=== PATIENT | female | born 1945 | race Caucasian/White ===

== ENCOUNTER 2020-05-11 10:37 | Outpatient (CLI) | payer MEDICARE, SELFPAY ==
--- NOTE | 2020-05-11 10:46 | MM_ITS ---
WS: [id number] RIGHT DIGITAL MAMMOGRAPHY WITH CAD CLINICAL INFORMATION: HX OF BREAST CA COMPARISON: 019 TECHNIQUE: 4 views of the right breast were obtained. FINDINGS: Scattered fibroglandular densities of the right breast. Punctate calcifications No suspicious focal mass, asymmetry, calcifications, or architectural distortion. No evidence of donna gnancy. MM/[place] [id number] IMPRESSION: BI-RADS: 2-Benign FOLLOW UP: 1 Year Follow-up Recommend return to annual diagnostic mammography.
== END 2020-05-11 10:38 | disposition home or self-care (01) ==
PROVIDERS: PCP Family Medicine; Visit Provider Family Medicine
DX: Z12.31 Encounter for screening mammogram for malignant neoplasm of breast (principal); Z85.3 Personal history of malignant neoplasm of breast
CPT/HCPCS: 77065

== ENCOUNTER → 2021-10-16 09:33 | Outpatient (BNVA) | payer MEDICARE, SELFPAY | PROVIDERS: PCP Family Medicine; Referring Provider Family Medicine; Visit Provider Specialist | DX: M25.561 Pain in right knee (principal); M25.761 Osteophyte, right knee | CPT/HCPCS: 73560; 73565 ==

== ENCOUNTER → 2021-10-30 10:28 | Outpatient (BNVA) | payer MEDICARE, SELFPAY | PROVIDERS: PCP Family Medicine; Referring Provider Family Medicine; Visit Provider Specialist | DX: M19.011 Primary osteoarthritis, right shoulder (principal); M25.511 Pain in right shoulder | CPT/HCPCS: 73030 ==

== ENCOUNTER → 2022-04-13 10:52 | Outpatient (BNVA) | payer MEDICARE, SELFPAY | PROVIDERS: PCP Family Medicine; Visit Provider Family Medicine | DX: M79.10 Myalgia, unspecified site (principal); M25.50 Pain in unspecified joint; M89.8X9 Other specified disorders of bone, unspecified site | CPT/HCPCS: 80053; 85025; 85651; 86140 ==

== ENCOUNTER → 2022-05-24 11:43 | Outpatient (BNVA) | payer MEDICARE, SELFPAY | PROVIDERS: PCP Family Medicine; Visit Provider Specialist | DX: M17.11 Unilateral primary osteoarthritis, right knee (principal); Z71.89 Other specified counseling; M75.41 Impingement syndrome of right shoulder | CPT/HCPCS: 20610; J1100; J2795; J3301 ==

== ENCOUNTER → 2022-06-08 10:16 | Outpatient (BNVA) | payer MEDICARE, SELFPAY | PROVIDERS: PCP Family Medicine; Visit Provider Internal Medicine | DX: I25.10 Atherosclerotic heart disease of native coronary artery without angina pectoris (principal); I10 Essential (primary) hypertension; F17.200 Nicotine dependence, unspecified, uncomplicated | CPT/HCPCS: 99214 ==

== ENCOUNTER → 2022-09-06 11:10 | Outpatient (BNVA) | payer MEDICARE, SELFPAY | PROVIDERS: PCP Family Medicine; Visit Provider Specialist | DX: M17.11 Unilateral primary osteoarthritis, right knee (principal); M75.41 Impingement syndrome of right shoulder | CPT/HCPCS: 20610; J1100; J2795; J3301 ==

== ENCOUNTER → 2023-01-17 10:11 | Outpatient (BNVA) | payer MEDICARE, SELFPAY | PROVIDERS: PCP Family Medicine; Visit Provider Specialist | DX: M75.81 Other shoulder lesions, right shoulder (principal); M75.41 Impingement syndrome of right shoulder; M17.11 Unilateral primary osteoarthritis, right knee; Z71.89 Other specified counseling | CPT/HCPCS: 20610; J1100; J2795; J3301 ==

== ENCOUNTER → 2023-03-08 09:53 | Outpatient (BNVA) | payer MEDICARE, SELFPAY | PROVIDERS: PCP Family Medicine; Visit Provider Internal Medicine | DX: I25.10 Atherosclerotic heart disease of native coronary artery without angina pectoris (principal); I10 Essential (primary) hypertension; Z72.0 Tobacco use | CPT/HCPCS: 99214 ==

== ENCOUNTER 2023-04-09 09:04 | Outpatient (CLI) | payer MEDICARE, SELFPAY ==
--- NOTE | 2023-04-09 09:00 | USCV_ITS ---
Priscilla Taylor Age: 77 Gender: F : 1945 Exam Date: 04/09/2023 09:28 Ordering Phys: Sahil Hung M.D ([email or web address]) Technologist: CT Exam Location: [facility] [place] Indication: murmur BP: 174 / 60 HR: 84 Rhythm: Sinus Technical Quality: Adequate MEASUREMENTS (Male / Female) Normal Values 2D ECHO LV Diastolic Diameter PLAX 3.7 cm 4.2 - 5.9 / 3.9 - 5.3 cm LV Systolic Diameter PLAX 3.2 cm IVS Diastolic Thickness 1.1 cm 0.6 - 1.0 / 0.6 - 0.9 cm IVS Systolic Thickness 1.6 cm LVPW Diastolic Thickness 0.4 cm 0.6 - 1.0 / 0.6 - 0.9 cm LVPW Systolic Thickness 1.0 cm LVOT Diameter 2.1 cm LV Ejection Fraction 2D Teich 11.3 % LV Ejection Fraction MOD 2C 63.5 % LV Ejection Fraction 2C AL 64.3 % LA Diameter 2.4 cm LA Width 1.0 cm Aorta at Sinotubular Diameter 1.9 cm IVC Diameter 2.0 cm M-MODE Aortic Annulus Diameter 3.4 cm LA Ao Ratio MM 0.8 MV E Point Septal Separation 0.8 cm DOPPLER AV Peak Velocity 165.0 cm/s LVOT Peak Velocity 136.0 cm/s AV Area Cont Eq vti 3.1 cm squared AV Area Cont Eq pk 2.9 cm squared MV Area PHT 3.7 cm squared Mitral E to A Ratio 1.2 MV E' Velocity 72.0 cm/s Mitral E to MV E' Ratio 10.6 Mitral E to LV E' Lateral Ratio 13.8 Mitral E to LV E' Septal Ratio 8.7 TR Peak Velocity 232.4 cm/s TR Peak Gradient 21.6 mmHg TR Mean Velocity 199.8 cm/s TR Mean Gradient 18.1 mmHg TR Velocity Time Integral 56.0 cm TV Peak E Velocity 67.0 cm/s Right Atrial Pressure 3.0 mmHg Pulmonary Artery Systolic Pressu 24.6 mmHg PV Peak Velocity 101.0 cm/s FINDINGS Left Ventricle Normal left ventricular size, systolic function and milldy increased wall thickness with no regional wall motion abnormalities. Left ventricular ejection fraction is estimated at 70 %. Normal diastolic function. Right Ventricle Normal right ventricular size and systolic function. Right ventricular systolic pressure 36 mmHg. Right Atrium Normal right atrial size. Left Atrium Mildly increased left atrial size. Mitral Valve Moderate mitral annular calcification. Mildly thickened mitral valve. No mitral valve stenosis. Trace mitral valve regurgitation. Aortic Valve Aortic valve not well visualized. No aortic valve stenosis. No aortic valve regurgitation. Tricuspid Valve Structurally normal tricuspid valve. Trace to mild tricuspid valve regurgitation. Pulmonic Valve Pulmonic valve not well visualized. Pericardium No pericardial effusion. Aorta Normal size aortic root and proximal ascending aorta. IVC Normal IVC dimension with >50% respiratory change of the inferior vena cava. CONCLUSIONS 1. Normal left ventricular size, systolic function with no regional wall motion abnormalities. Left ventricular ejection fraction is estimated at 70 %. Normal diastolic function. 2. No significant change when compared to study dated 08/15/2017. Oriana Gauthier MD (Electronically Signed) Final Date: 10 Apr 2023 08:47 S
== END 2023-04-09 09:05 | disposition home or self-care (01) ==
LOC: RAD 09:07
PROVIDERS: PCP Family Medicine; Visit Provider Internal Medicine
DX: R01.1 Cardiac murmur, unspecified (principal)
CPT/HCPCS: 93306

== ENCOUNTER → 2023-04-23 13:43 | Outpatient (BNVA) | payer MEDICARE, SELFPAY | PROVIDERS: PCP Family Medicine; Visit Provider Family Medicine | DX: I10 Essential (primary) hypertension (principal); Z13.6 Encounter for screening for cardiovascular disorders | CPT/HCPCS: 80053; 80061; 85025 ==

== ENCOUNTER → 2023-04-25 11:23 | Outpatient (BNVA) | payer MEDICARE, SELFPAY | PROVIDERS: PCP Family Medicine; Visit Provider Specialist | DX: M17.11 Unilateral primary osteoarthritis, right knee (principal); I10 Essential (primary) hypertension | CPT/HCPCS: 73560; 73565; 80053; 81001; 85025; 99214 ==

== ENCOUNTER 2023-05-01 15:10 | Outpatient (CLI) | payer MEDICARE, SELFPAY ==
--- NOTE | 2023-05-01 15:30 | CT_ITS ---
WS: [id number] CT RIGHT KNEE, NONCONTRAST TECHNIQUE: Noncontrast CT of the RIGHT knee to include the RIGHT hip and ankle. [facility] CLINICAL INFORMATION: knee pain COMPARISON: None. DLP: 944.[address] scans at [facility] use at least one of these dose optimization techniques: automated e xposure control; mA and/or kV adjustment per patient size (includes targeted exams where dose is matc hed to clinical indication); or iterative reconstruction. FINDINGS: Advanced tricompartmental osteoarthritis RIGHT knee worse in the medial joint compartment with subcho ndral sclerosis. Hypertrophic changes along the joint line. Vascular calcification. Osteopenia. Soft tissue edema. Tiny suprapatellar effusion. Hypertrophic patella. A few sigmoid diverticuli. CT/CT knee RT wo con* [id number] IMPRESSION: Images obtained for preoperative purposes.
== END 2023-05-01 15:11 | disposition home or self-care (01) ==
PROVIDERS: PCP Family Medicine; Visit Provider Specialist
DX: M17.11 Unilateral primary osteoarthritis, right knee (principal); M85.88 Other specified disorders of bone density and structure, other site; R60.9 Edema, unspecified
CPT/HCPCS: 73700

== ENCOUNTER 2023-05-07 12:42 | Observation (INO) | payer MEDICARE, SELFPAY ==
[2023-05-06 11:40] VITALS: BMI 21.1
[2023-05-07] VITALS (16 sets, daily range): BP systolic 93–158; BP diastolic 43–61; PULSE 73–96; RESP 14–27; TEMP 36.3–36.8; O2SAT 90–100
[2023-05-07] MEDS: CELEcoxib 200 mg Capsule 400 MG PO (08:17)
[2023-05-07] MEDS: gabapentin 300 mg Capsule PO (08:17)
[2023-05-07] MEDS: sodium chloride 0.9% 1,000 ML 30 ML IV (08:25)
[2023-05-07] MEDS: acetaminophen 1,000 MG/100 ML PIGGYBACK 400 MG IV ×3 (08:30→23:46)
--- NOTE | 2023-05-07 09:10 | ANES.PREANE2 ---
Pre-Anesthetic Assessment Height/Weight: Height 1.55 m Weight 50.802 kg Temp Pulse Resp BP Pulse Ox O2 Del Method 98.2 F 86 16 158/61 98 Room Air 05/07/23 08:10 05/07/23 08:10 05/07/23 08:10 05/07/23 08:10 05/07/23 08:10 05/07/23 08:10 Operation Date: 05/07/23 09:55 Proposed Procedures p RIGHT TOTAL KNEE ARTHROPLASTY WITH ESTEFANY GUIDANCE 39373, M17.10(Right) - Yandy Child MD Familial anesthetic complications: None Was Beta Elva taken within 24 hours: N/A Was Clonidine taken within 24 hours: N/A Last intake: Intake Last Liquid Date 05/06/23 Last Liquid Time 23:00 Last Solid Date 05/06/23 Last Solid Time 22:30 Social Tobacco and No alcohol Exam alert, oriented x 3, clear to auscultation bilaterally and regular rate & rhythm Airway Mallampati: Class III Dentition: full CV/HEM Arrythmia, Coronary Artery Disease and Hypertension Anesthetic Plan ASA status: 3 Anesthesia: Regional (specify below) Other: spinal + adductor Risk of > 500 ml blood loss (7ml/kg in children): Yes, adequate IV access and fluids planned Medications/Allergies Home Medications Medication Instructions Recorded Confirmed Last Taken Type digoxin 125 mcg (0.125 mg) tablet 125 mcg PO DAILY #90 tabs 06/11/22 05/07/23 05/07/23 Rx verapamil 240 mg 24 hr 240 mg PO DAILY #90 caps 08/08/22 05/07/23 05/07/23 Rx capsule,extended release clopidogrel 75 mg tablet 75 mg PO DAILY #90 tabs 12/04/22 05/07/23 05/01/23 Rx losartan 100 mg tablet 100 mg PO DAILY #90 tabs 12/04/22 05/07/23 05/06/23 Rx atorvastatin 10 mg tablet 10 mg PO DAILY #90 tabs 04/01/23 05/07/23 05/06/23 Rx amlodipine 5 mg tablet 5 mg PO DAILY #90 tabs 04/23/23 05/07/23 05/07/23 Rx Allergies Allergy/AdvReac Type Severity Reaction Status Date / Time No Known Allergies Allergy Verified 05/07/23 08:04 Current Medications Generic Name Dose Route Start Last Admin Trade Name Freq PRN Reason Stop Dose Admin Sodium Chloride 1,000 mls @ 30 mls/hr 05/07/23 08:00 05/07/23 08:25 Sodium Chloride 0.9% IV 05/08/23 07:59 30 mls/hr .Q24H TRUONG Administration PFSH Anesthesia Medical History Breast cancer History of palpitations Surgical History H/O mastectomy Family History Brother CAD (coronary artery disease) Social History Smoking and tobacco status: current every day smoker Alcohol intake: never Substance/Drug Use: never Adopted: No Household members: none Housing: House Marital status: / Highest education level completed: 8th Grade service: No Current occupational status: retired Pets and animals: Yes Current gender identity: Female Data Anesthesia Cardiac Studies: Echocardiogram 04/09/23
--- NOTE | 2023-05-07 09:17 | ANES.PROC ---
Anesthesia Procedures Procedure/Date: 05/07/23 Nerve Block ^: Nerve Block 1: Main Anesthesia: spinal anesthesia block Time Out Performed: Yes Consent: requested by attending/covering physician, from patient, from other, risks and benefits reviewed, patient agrees to proceed and emergency procedure Nerve block location: adductor canal (R) Anesthesia monitors applied: pulse oximetry, EKG, BP cuff and oxygen Nerve block position: supine Anesthetic Used: ropivicaine 0.5% (30 ml) and with decadron (4 mg) Ultrasound used to: recognize landmarks and visualize and ID femerol nerve Nerve Stimulator Used?: No Interscalene/Femoral BLK: 2 stimuplex 22 g needle used for position and inplane approach, 4 stimuplex 21 g needle used for position and inplane approach, visualize local anesthetic spread and no vascular puncture identified Injection: neg aspiration of heme Patient Tolerated Procedure: well and no complications Complications: none
--- NOTE | 2023-05-07 09:53 | P.HPUD_ITS ---
Surgery/Procedure H&P Update DATE OF PROCEDURE: May 07, 2023 DATE H&P PERFORMED: 05/01/23 H&P UPDATE INFORMATION: I have reviewed H&P completed within last 30 days, I have examined patient prior to procedure, No changes to prior documentation and H&P is in [facility] EMR on date indicated PLANNED PROCEDURE: Operation Date: 05/07/23 09:55 Proposed Procedures p RIGHT TOTAL KNEE ARTHROPLASTY WITH ESTEFANY GUIDANCE 48932, M17.10(Right) - Yandy Child MD Related Problem List Diagnoses (1) Primary osteoarthritis of right knee:
[2023-05-07] MEDS: ceFAZolin 2,000 MG in sodium chloride 0.9% (plus) 50 ML 100 MG IV ×2 (10:01→18:29)
--- NOTE | 2023-05-07 10:37 | SUR.OPER ---
called daughter and notified her of surgical start.
[2023-05-07] MEDS: vancomycin 1,000 MG SDV 1000 MG XX (10:41)
[2023-05-07] MEDS: ceFAZolin 1,000 mg SDV 1000 MG IRRIGATION (10:42)
[2023-05-07] MEDS: sodium chloride 0.9% 250 mL Bag 50 ML XX (10:43)
--- NOTE | 2023-05-07 11:28 | SUR.OPER ---
called daughter and notified her of surgical progress.
--- NOTE | 2023-05-07 12:47 | P.OP_ITS ---
Operative Report Date of procedure: May 07, 2023 Pre-op diagnosis: Primary osteoarthritis right knee Post-op diagnosis: Primary osteoarthritis right knee Post-op findings: Severe degenerative osteoarthritic change of the right knee with varus deformity and large osteophytes Procedure done: Right total knee arthroplasty with Marin guidance Implants: The [place] total knee system with a size 2 triathlon beaded cruciate retaining femur right, a triathlon titanium tibial component size 2 beaded, a triathlon X3 tibial bearing CS insert size 2 X 14 mm and a beaded triathlon titanium asymmetric patella size 29 x 9 mm Specimens removed/disposition: Femoral head, disposed of Pathology: none sent Surgeon: Yandy Child [employer] Turb[employer] Controls Engineer: [facility] operating room technicians Anesthesia: General (Per LMA, ASA 3 with supplemental adductor block) Estimated blood loss (mL): 100 IV fluids (mL): 1,200 Urine output (mL): 0 (No Martinez) Complications: None Findings: Severe degenerative osteoarthritis of the right knee with large osteophytes and complete loss of cartilage. Condition: stable Disposition: PACU (Then to floor for postoperative rehabilitation and pain management) Brief History: This is an established 78 year old female patient here today for right total knee arthroplasty with Marin guidance. The patient has had multiple injections to help improve her activities of daily living, but these began to not help her, and she wished to proceed with total knee arthroplasty. Risks and complications of the surgery were discussed with her. Consents were signed preoperatively in the office. Questions were answered at that time. Procedure: The patient was brought to the operating theater, and after undergoing general anesthesia per LMA, ASA 3, as well as an adductor canal block, the right lower extremity was prepped with Dura-Prep and draped in usual fashion following placement of a tourniquet high on the leg. The leg was then draped free.? Tourniquet was not elevated during the case.? A surgical pause was performed, and at the time of the surgical pause, we confirmed the site and side of surgery. Additionally, we confirmed the appropriate and timely administration of preoperative antibiotics, Ancef 2 g and Transexemic acid 1 g.? The availability of equipment was confirmed, and the patient's identity was verbalized as well.? An additional transexemic acid 1 g will be given on the floor as well. Following the surgical pause, an incision was made centering over the patella continuing proximally and distally as necessary to allow access to the knee joint. Dissection continued through skin and soft tissues using a scalpel. Hemostasis was obtained using electrocautery. The skin incision was followed by a median parapatellar arthrotomy. The leg was extended and the patella was able to be displaced laterally without difficulty.? Medial release was initially accomplished to allow placement for the Marin array.? Appropriate arrays and markers were placed in appropriate position for use of the Marin.? Preoperative planning had been accomplished and was discussed in detail with the [facility] artist's representative.? Intraoperative mapping of the femur and tibia was accomplished after the arrays were placed.? Internal markers were also placed.? Once we had accomplished the Marin mapping, we began the appropriate resections for placement of the prosthesis.? The plan was for a cruciate retaining right total knee arthroplasty. Once appropriate mapping had been accomplished retraction was established using manual retraction by surgical technicians and also the Marin leg positioner and retractors.? The knee was evaluated.? There was significant osteoarthritic change with significant osteophyte formation a significant varus deformity.? Appropriate bone resection was accomplished using the Marin.? The femur was sized to a size 2.? Following femoral cuts, attention was directed to the tibia.? Osteophytes were removed prior to this portion of the procedure.? We had performed a medial release at the beginning of the procedure to allow for placement of the array and to allow for better planning with flexion and extension adjustments per Marin programming.? Proximal tibia was evaluated, and it was felt that appropriate size for the tibia was a size 2.? Tray was noted to fit nicely with good coverage.? Rim fit was accomplished with the size 2. A trial reduction was accomplished after osteophytes have been removed as well as the medial and lateral menisci.? We had removed the anterior cruciate ligament at the beginning of the case and preserved the posterior cruciate ligam ent.? Trial reduction was accomplished with a size 2 femoral cruciate retaining component and a size 2 CS tibial bearing insert which after trial was a 14 mm. Alignment was felt to be appropriate as well.? Trial components were removed after the femur had been drilled.? Prior to removal of the tibial tray which had been pinned in position with appropriate rotation as determined by the Marin plan, we broached the tibia.? Subsequently, the 4 drill holes were made for the prosthetic component.? All trial components were removed, and the wound was irrigated.? Plans were made for insertion of the prosthetic components.? Prior to this, the patella was manually prepared.? After resection of the articular surface with the jogging system, it was measured and measured a 29 mm patella.? We resected approximately 9 mm of patella.? Patellar height was restored with the patellar component. Once again, the wound was irrigated.? The Tritanium tibia was impacted into position.? The beaded femur was then impacted into position in a cementless fashion. The CS tibial insert was placed prior to placement of the femoral component. The patella was pressed into position with a patellar clamp.? Exparel was injected about the components deep and superficially.? The knee was then copiously irrigated with betadine and saline and suctioned dry.? Further irrigation was accomplished with saline following the Betadine.? Attention was then directed to closure. Closure was accomplished with 0 Vicryl in the fascial tissues.? This was followed by Surgiflo and vancomycin powder.? Following this, a 2-0 Monocryl was used in the subcutaneous tissues, and the skin was closed with skin samia.? Care was taken to assure an excellent subcutaneous as well as skin closure.? A sterile dressing was then placed consisting of Dermabond Prineo, OpSite, sterile soft roll including over the foot, and an Jadiel wrap. The patient was returned the Recovery Room in a satisfactory condition. X-rays were obtained and reviewed there.? The patient will be discharged to the floor for postoperative rehabilitation and pain management. Related Problem List Diagnoses (1) Primary osteoarthritis of right knee:
--- NOTE | 2023-05-07 12:56 | XR_ITS ---
WS: [id number] Exam: XR knee RT 1-2V [id number] Date/Time of Exam: 05/07/2023 1:03 PM Reason For Exam: Right total knee arthroplasty Comparison 04/25/2023. A right total knee replacement is noted in excellent position. Postoperative changes in the adjacent soft tissues. Anterior surgical skin clips. XR/XR knee RT 1-2V 51969 IMPRESSION: 1. Total knee replacement in excellent position.
--- NOTE | 2023-05-07 13:11 | PC.NURSE ---
Xray @ bedside. Good pedal pulse right foot
--- NOTE | 2023-05-07 14:00 | ANE.PACU2 ---
Inpatient post-anesthesia follow up: Airway intact: Yes Vital signs: Temperature 97.8 F Pulse Rate 94 Respiratory Rate 17 Blood Pressure 106/45 Pulse Oximetry 91 Oxygen Delivery Me thod Room Air Oxygen Flow Rate 8 Fraction of Inspir ed Oxygen Hydration adequate: Yes Nausea and vomiting: No Pain level: 1 Mental status: Baseline
[2023-05-07] MEDS: oxyCODONE 5 mg IR Tab/Cap PO (14:25)
[2023-05-07] MEDS: ondansetron 2 mg/ML SDV 2 mL 4 MG IVP (14:25)
[2023-05-07] MEDS: chlorhexidine gluconate 0.12% UDC 15 mL 30 ML MUCOUS MEM ×2 (16:42→21:27)
[2023-05-07] MEDS: calcium carbonate 500 mg Chew Tablet 1000 MG PO (18:28)
[2023-05-07] MEDS: iron polysaccharide complex 150 mg Capsule PO (18:28)
[2023-05-07] MEDS: sennosides-docusate Tablet 2 TAB PO (18:28)
[2023-05-07] MEDS: mupirocin oint 22 gm 1 APPLIC NASAL (18:28)
[2023-05-08] VITALS (11 sets, daily range): BP systolic 94–118; BP diastolic 47–55; PULSE 71–98; RESP 16–20; TEMP 36.4–36.8; O2SAT 96–99
[2023-05-08] MEDS: ceFAZolin 2,000 MG in sodium chloride 0.9% (plus) 50 ML 100 MG IV ×2 (02:16→09:22)
[2023-05-08 03:47] LABS: Basophils % 0.1 %; Hematocrit 32.3 % (37.0-47.0); Hemoglobin 10.4 g/dL (11.5-15.3); Lymphocytes # 0.9 10^3/uL (0.8-4.8); Mean Corpuscular HGB Conc 32.2 g/dL (30.0-36.0); Mean Corpuscular Hemoglobin 30.5 pg (28.0-34.0); Mean Corpuscular Volume 94.7 fl (81-99); Mean Platelet Volume 11.2 fL (7.4-10.4); Monocytes # 0.7 10^3/uL (0.2-0.9); Monocytes % 5.1 %; Neutrophils # 11.68 10^3/uL (1.8-7.7); Neutrophils % 87.5 %; Nucleated Red Blood Cells % 0 %; Platelet Count 144 10^3/cmm (130-400); Red Blood Count 3.41 10^6/uL (4.1-5.3); Red Cell Distribution Width 12.7 % (12.1-15.1); White Blood Count 13.4 10^3/uL (4.0-10.0)
[2023-05-08 04:05] LABS: Anion Gap 12.3 (5-19); Blood Urea Nitrogen 18 mg/dL (8-23); Calcium 8.8 mg/dL (8.5-10.5); Carbon Dioxide 25 mmol/L (22-29); Chloride 104 mmol/L (98-107); Glucose 132 mg/dL (65-115); Osmolality Calculated 288 mOsm/kg (285-295); Potassium 4.3 mmol/L (3.5-5.1); Sodium 137 mmol/L (136-145)
[2023-05-08] MEDS: acetaminophen 1,000 MG/100 ML PIGGYBACK 400 MG IV (08:48)
[2023-05-08] MEDS: atorvastatin 40 mg Tablet 20 MG PO (08:53)
[2023-05-08] MEDS: aspirin 325 mg EC Tablet PO (08:54)
[2023-05-08] MEDS: multivitamin therapeutic Tablet 1 TAB PO (08:54)
[2023-05-08] MEDS: sennosides-docusate Tablet 2 TAB PO (08:54)
[2023-05-08] MEDS: cholecalciferol (vitamin D3) 1,000 unit Tablet 1000 UNIT PO (08:54)
[2023-05-08] MEDS: calcium carbonate 500 mg Chew Tablet 1000 MG PO (08:54)
[2023-05-08] MEDS: losartan 50 mg Tablet 100 MG PO (08:54)
[2023-05-08] MEDS: iron polysaccharide complex 150 mg Capsule PO (08:55)
[2023-05-08] MEDS: digoxin 125 mcg Tablet PO (08:55)
[2023-05-08] MEDS: amlodipine 5 mg Tablet PO (08:55)
[2023-05-08] MEDS: clopidogrel 75 mg Tablet PO (08:55)
[2023-05-08] MEDS: chlorhexidine gluconate 0.12% UDC 15 mL 30 ML MUCOUS MEM ×2 (08:55→13:18)
[2023-05-08] MEDS: mupirocin oint 22 gm 1 APPLIC NASAL (08:56)
[2023-05-08] MEDS: verapamil ER 240 mg Tablet PO (09:51)
[2023-05-08] MEDS: oxyCODONE 5 mg IR Tab/Cap PO ×2 (10:45→15:00)
--- NOTE | 2023-05-08 14:45 | PM.DCS ---
Discharge Providers Date of Admission: 05/07/23 12:42 Date of Discharge: May 08, 2023 Attending Provider at Admission: Yandy Child MD Attending Provider at Discharge: Yandy Child MD Primary Care Provider: Yehuda Reese DO Diagnoses at Discharge Discharge Diagnosis (1) Primary osteoarthritis of right knee: Status: Acute (2) Status post total right knee replacement not using cement: Status: Acute Permanent problem details: Date of procedure: May 07, 2023 Diagnosis: Primary osteoarthritis right knee Procedure done: Right total knee arthroplasty with Marin guidance Implants: The Ray total knee system with a size 2 triathlon beaded cruciate retaining femur right, a triathlon titanium tibial component size 2 beaded, a triathlon X3 tibial bearing CS insert size 2 X 14 mm and a beaded triathlon titanium asymmetric patella size 29 x 9 mm Reason for Visit Reason for Visit: 21359 M17.10 Brief History: This is an established 78 year old female patient here today for right total knee arthroplasty with Marin guidance.? The patient has had multiple injections to help improve her activities of daily living, but these began to not help her, and she wished to proceed with total knee arthroplasty.? Risks and complications of the surgery were discussed with her.? Consents were signed preoperatively in the office.? Questions were answered at that time. Physical Exam Const: COMMON NORMALS: no acute distress, average body habitus, patient oriented x3 and alert GENERAL APPEARANCE: cooperative and comfortable ORIENTATION/CONSCIOUSNESS: Yes awake HENMT: COMMON NORMALS: normocephalic and atraumatic HEAD & SCALP: normocephalic and atraumatic Eye: GENERAL EYE: appearance normal, both eyes and all related structures Chest: COMMONS NORMALS: normal inspection of the chest Resp: COMMON NORMALS: normal respiratory effort EFFORT & INSPECTION: Yes able to speak in complete sentences and Yes symmetric chest movement Extremity: RIGHT LOWER EXTREMITY: Yes knee joint (Large outer dressing is removed prior to discharge.) Right knee: Yes inspection (Minimal to no swelling or ecchymosis.), Yes palpation (Minimal tenderness.), Yes ROM (Able to straight leg raise.), Yes neurovascular exam (Intact distally.) and Yes other (No evidence of DVT.) Neuro: COMMON NORMALS: patient oriented x3 SENSORIUM/ORIENTATION: Yes alert Psych: COMMON NORMALS: mental status grossly normal APPEARANCE: Yes grossly normal ATTITUDE: Yes calm and Yes engaged ATTENTION/CONCENTRATION: Yes attention grossly intact Skin: COMMON NORMALS: no rashes or lesions noted GENERAL SKIN EXAM: no rashes or lesions noted Discharge Data Studies Completed and Pending Completed Studies During Hospitalization Category Date Time Status XR knee RT 1-2V 94240 Routine Exams 05/07/23 12:56 Completed Radiology Impressions Knee X-Ray 05/07/23 12:56 IMPRESSION: 1. Total knee replacement in excellent position. Laboratory Results WBC 13.4 10^3/uL (4.0-10.0) H 05/08/23 03:29 RBC 3.41 10^6/uL (4.1-5.3) L 05/08/23 03:29 Hgb 10.4 g/dL (11.5-15.3) L 05/08/23 03:29 Hct 32.3 % (37.0-47.0) L 05/08/23 03:29 MCV 94.7 fl (81-99) 05/08/23 03:29 MCH 30.5 pg (28.0-34.0) 05/08/23 03: MCHC 32.2 g/dL (30.0-36.0) 05/08/23 03:29 RDW 12.7 % (12.1-15.1) 05/08/23 03:29 Plt Count 144 10^3/cmm (130-400) 05/08/23 03:29 MPV 11.2 fL (7.4-10.4) H 05/08/23 03:29 Neut % (Auto) 87.5 % 05/08/23 03:29 Lymph % (Auto) 7.0 % 05/08/23 03:29 Garfield % (Auto) 5.1 % 05/08/23 03:29 Eos % (Auto) 0.0 % 05/08/23 03:29 Baso % (Auto) 0.1 % 05/08/23 03:29 Neut # (Auto) 11.68 10^3/uL (1.8-7.7) H 05/08/23 03:29 Lymph # (Auto) 0.9 10^3/uL (0.8-4.8) 05/08/23 03:29 Garfield # (Auto) 0.7 10^3/uL (0.2-0.9) 05/08/23 03:29 Eos # (Auto) 0.0 10^3/uL (0.0-0.8) 05/08/23 03:29 Baso # (Auto) 0.0 10^3/uL (0.0-0.1) 05/08/23 03:29 Nucleated RBC % (auto) 0 % 05/08/23 03:29 Nucleated RBCs # 0.0 /100WBC 05/08/23 03:29 Sodium 137 mmol/L (136-145) 05/08/23 03:29 Potassium 4.3 mmol/L (3.5-5.1) 05/08/23 03:29 Chloride 104 mmol/L (98-107) 05/08/23 03:29 Carbon Dioxide 25 mmol/L (22-29) 05/08/23 03:29 Anion Gap 12.3 (5-19) 05/08/23 03:29 BUN 18 mg/dL (8-23) 05/08/23 03:29 Creatinine 0.8 mg/dL (0.5-0.9) 05/08/23 03:29 GFR Calculation Not Reportable 05/08/23 03:29 Glucose 132 mg/dL (65-115) H 05/08/23 03:29 Calculated Osmolality 288 mOsm/kg (285-295) 05/08/23 03:29 Calcium 8.8 mg/dL (8.5-10.5) 05/08/23 03:29 Vitals Last Vital Signs Temp 98.3 F 05/08/23 12:00 Pulse 98 05/08/23 12:00 Resp 18 05/08/23 12:00 BP 106/47 05/08/23 12:00 Pulse Ox 96 05/08/23 12:00 O2 Del Method Room Air 05/08/23 12:00 O2 Flow Rate 8 05/07/23 13:05 Discharge Plan Discharge Patient Disposition: Home Health Service Condition: Stable Prescriptions: New acetaminophen 500 mg Tablet 1,000 mg PO Q8H 15 Days Qty: 0 0RF aspirin 325 mg Tablet,Delayed Release (Dr/Ec) 325 mg PO DAILY 30 Days Qty: 0 0RF oxycodone 5 mg Tablet 5 mg PO Q4H PRN (Reason: Moderate Pain) 7 Days Qty: 30 0RF Continued digoxin 125 mcg (0.125 mg) tablet 125 mcg PO DAILY Qty: 90 3RF verapamil 240 mg capsule,ext rel. pellets 24 hr 240 mg PO DAILY Qty: 90 3RF losartan 100 mg tablet 100 mg PO DAILY Qty: 90 3RF clopidogrel 75 mg tablet 75 mg PO DAILY Qty: 90 3RF atorvastatin 10 mg tablet 10 mg PO DAILY Qty: 90 3RF amlodipine 5 mg tablet 5 mg PO DAILY Qty: 90 3RF Discharge Orders: Discharge Order (Routine); Ordered 05/08/23 Ordered By: Yandy Child Referrals: [facility] ([facility]) [Outside] Yandy Child MD [Physician] - 05/22/23 9:45 am Discharge Diet: Advance as tolerated and Usual diet Discharge Activity: Resume usual activity, Increase activity as tolerated, Limit activity as instructed, Use walker/crutches as instructed and As per PT/OT instructions Patient Instructions: Aspirin (By mouth), Oxycodone, Slow Release (By mouth), Revision Total Joint Arthroplasty (DC), Opioid Safety Activity Restrictions/Additional Instructions: Ice and elevation to right lower extremity. Range of motion to the knee. Ambulate with physical therapy. Physical therapy will perform weightbearing exercises, strengthening, ambulation, and range of motion. Please leave dressing in place. You may shower but do not soak your leg in water. Discharge Attestations Time Spent in Discharge Care*: greater than 30 min Specific Discharge Activities: educating patient, documenting/other paperwork and evaluating patient/reviewing data Quality Metrics Clinical Quality Measures [ No reported AMI, CVA or VTE this stay] Coding Level of Care Code Acute Code for Chg Fwd Diagnoses Primary osteoarthritis of right knee M17.11 Status post total right knee replacement not using cement Z96.651
[2023-05-08] MEDS: acetaminophen 500 mg Tablet 1000 MG PO (15:55)
== END 2023-05-08 16:16 | disposition home health service (06) ==
LOC: MEDSURG 12:58
PROVIDERS: Admitting Provider Specialist; PCP Family Medicine; Visit Provider Specialist
PROC: 8E0Y0CZ Robotic Assisted Procedure of Lower Extremity, Open Approach (ICD-10-PCS; CPT 27447; principal; 2023-05-07 09:55)
DX: M17.11 Unilateral primary osteoarthritis, right knee (principal); Z79.02 Long term (current) use of antithrombotics/antiplatelets; I25.10 Atherosclerotic heart disease of native coronary artery without angina pectoris; I10 Essential (primary) hypertension; F17.200 Nicotine dependence, unspecified, uncomplicated
CPT/HCPCS: 20985; 27447; 36415; 73560; 80048; 85025; 97110; 97116; 97161; 97165; 97530; C1776; C9290; G0378; J0131; J0690; J1100; J2370; J2405; J2704; J2795; J3010; J3370; J3490; J7030; J7050

== ENCOUNTER → 2023-05-22 09:35 | Outpatient (BNVA) | payer MEDICARE, SELFPAY | PROVIDERS: PCP Family Medicine; Visit Provider Specialist | DX: Z96.651 Presence of right artificial knee joint (principal) | CPT/HCPCS: 73560; 73565; 99024 ==

== ENCOUNTER → 2023-06-11 11:32 | Outpatient (BNVA) | payer MEDICARE, SELFPAY | PROVIDERS: PCP Family Medicine; Visit Provider Nurse Practitioner Family | DX: R53.83 Other fatigue (principal) | CPT/HCPCS: 80053; 82306; 82607; 83036; 84443; 85025 ==

== ENCOUNTER 2023-06-12 06:00 | Outpatient (RCR) | payer MEDICARE, SELFPAY | END 2023-07-11 23:59 | disposition home or self-care (01) | LOC: APT 06:00 | PROVIDERS: PCP Family Medicine; Visit Provider Specialist | DX: Z47.1 Aftercare following joint replacement surgery (principal); Z96.651 Presence of right artificial knee joint | CPT/HCPCS: 97110; 97116; 97162; 97530 ==

== ENCOUNTER → 2023-06-13 08:38 | Outpatient (BNVA) | payer MEDICARE, SELFPAY | PROVIDERS: PCP Family Medicine; Visit Provider Nurse Practitioner Family | DX: D64.9 Anemia, unspecified (principal); R53.83 Other fatigue | CPT/HCPCS: 83540; 85025 ==

== ENCOUNTER → 2023-06-18 08:54 | Outpatient (BNVA) | payer MEDICARE, SELFPAY | PROVIDERS: PCP Family Medicine; Visit Provider Nurse Practitioner Family | DX: D64.9 Anemia, unspecified (principal) | CPT/HCPCS: 82274 ==

== ENCOUNTER → 2023-06-26 10:53 | Outpatient (BNVA) | payer MEDICARE, SELFPAY | PROVIDERS: PCP Family Medicine; Visit Provider Specialist | DX: Z96.651 Presence of right artificial knee joint (principal) | CPT/HCPCS: 73560; 73565; 99024 ==

== ENCOUNTER 2023-07-12 06:00 | Outpatient (RCR) | payer MEDICARE, SELFPAY | END 2023-08-10 23:59 | disposition home or self-care (01) | LOC: APT 06:00 | PROVIDERS: PCP Family Medicine; Visit Provider Specialist | DX: Z47.1 Aftercare following joint replacement surgery (principal); Z96.651 Presence of right artificial knee joint | CPT/HCPCS: 97110; 97112; 97530 ==

== ENCOUNTER → 2023-08-26 10:26 | Outpatient (BNVA) | payer MEDICARE, SELFPAY | PROVIDERS: PCP Family Medicine; Visit Provider Nurse Practitioner | DX: Z96.651 Presence of right artificial knee joint (principal); M17.11 Unilateral primary osteoarthritis, right knee | CPT/HCPCS: 73560; 73565; 99213 ==

== ENCOUNTER 2023-09-02 13:02 | Inpatient (IN) | payer MEDICARE, SELFPAY ==
[2023-09-02] VITALS (86 sets, daily range): BP systolic 95–156; BP diastolic 44–84; PULSE 70–100; RESP 14–32; O2SAT 90–98; BMI 19.8
--- NOTE | 2023-09-02 13:07 | ECG_ITS ---
[facility] Test Date: 2023-09-02 Pat Name: Priscilla Taylor Department: Room: Gender: Female [employer] Inspector: : 1945 Requested By: Keren Cordoba Order Number: [id number] Jose MD: Oriana Gauthier M.D. Measurements Intervals [place] Rate: 94 P: 74 VT: 145 QRS: -7 QRSD: 81 T: 72 QT: 321 QTc: 401 Interpretive Statements SINUS RHYTHM POSSIBLE RIGHT ATRIAL ENLARGEMENT [0.25mV P-WAVE] Compared to ECG 08/15/2017 02:21:29 ST (T wave) deviation no longer present Electronically Signed On 09-02-2023 17:45:11 CDT by Oriana Gauthier M.D. [email or web address]
--- NOTE | 2023-09-02 13:07 | XR_ITS ---
WS: [id number] Exam: XR chest 1V portable [id number] Date/Time of Exam: 09/02/2023 1:16 PM Reason For Exam: cp Comparison 03/03/2019. The lungs are hyperinflated and clear. Cardiomediastinal silhouette is unremarkable. Status post LEFT mastectomy with surgical clips in the LEFT axilla. No pleural effusion. Hilar and mediastinal calcif ied lymph nodes. Regional bony elements are intact. IMPRESSION: 1. Pulmonary hyperinflation which may indicate obstructive lung disease. No acute process noted and n o change.
--- NOTE | 2023-09-02 13:12 | W.ED.CHESTPA ---
HPI - Chest Pain General: Chief Complaint: Arrhythmia/Palpitations Stated Complaint: tachy,chest pain Time Seen by Provider: 09/02/23 13:04 Source: patient and EMS Mode of arrival: EMS Limitations: no limitations History of Present Illness: 78-year-old female has a history of A-fib states that 10 this morning she felt like her heart was racing was having palpitations and it was causing her some chest discomfort. She states that her heart rate is now normal and she is feels much better all of her symptoms have resolved. She denies any cough or fever. Associated symptoms: Reports palpitations; Deny abdominal pain, dyspnea, fever(s), nausea or vomiting Review of Systems Const: Denies: fever(s), chills, body aches or change in appetite Eyes: Denies: blurry vision or eye discomfort ENMT: Denies: throat pain or dental pain Card: Reports: chest pain and palpitations Resp: Denies: dyspnea GI: Denies: abdominal pain, nausea, vomiting or diarrhea : Denies: dysuria Musc: Denies: neck pain or back pain Skin/Breast: Denies: rash Neuro: Denies: headache(s) PFSH ED PFSH: Medical History Breast cancer History of palpitations Surgical History H/O mastectomy Family History Brother CAD (coronary artery disease) Social History Smoking and tobacco/nicotine status: current every day tobacco/nicotine user Alcohol intake: never Substance/Drug Use: never Adopted: No Household members: none Housing: House Marital status: / Highest education level completed: 8th Grade service: No Current occupational status: retired Pets and animals: Yes Current gender identity: Female Physical Exam Const: COMMON NORMALS: no acute distress, patient oriented x3 and healthy appearing HENMT: COMMON NORMALS: normocephalic and atraumatic HEAD & SCALP: normocephalic and atraumatic Eye: COMMON NORMALS: Equal, round and reactive pupils present and EOMs intact bilaterally PUPIL: Yes Equal, round and reactive pupils present Neck/C-Spine: COMMON NORMALS: full ROM and supple Chest: COMMONS NORMALS: normal inspection of the chest and normal palpation of entire chest wall Resp: COMMON NORMALS: normal respiratory effort, No retractions, No use of accessory muscles and clear to auscultation bilaterally AUSCULTATION: clear to auscultation bilaterally Cardio: COMMON NORMALS: regular rate, regular rhythm and No murmurs present (Cardio) RATE: regular rate RHYTHM: regular rhythm GI: COMMON NORMALS: Normal to inspection, nondistended, normoactive bowel sounds present, Soft to palpation, non-tender and no masses PALPATION: Yes Soft to palpation Extremity: COMMON NORMALS: normal to inspection and full ROM Neuro: COMMON NORMALS: patient oriented x3, moves all extremities and no focal motor deficits Psych: COMMON NORMALS: mental status grossly normal, Normal thought process present and cooperative THOUGHT PROCESS: Normal thought process present Skin: COMMON NORMALS: no rashes or lesions noted and no wounds GENERAL SKIN EXAM: no rashes or lesions noted Course Vital Signs: Vital signs: Vital Signs Pulse Rate 82 09/02/23 14:43 Respiratory Rate 21 H 09/02/23 14:43 Blood Pressure 107/84 09/02/23 14:43 Pulse Oximetry 95 09/02/23 14:43 Oxygen Delivery Me thod Room Air 09/02/23 14:43 MDM - Chest Pain Medical Decision Making Patient presents here with chest pain she does have an elevated initial troponin along with 2-hour troponin consistent with an NSTEMI EKG here shows no acute findings she has been chest pain-free here we will give her Lovenox I spoke to hospitalist along with 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 Medical Records I reviewed the patient's medical records. Lab Data I reviewed the patient's lab results. 09/02/23 13:17 09/02/23 13:17 Laboratory Results WBC 9.35 10^3/uL (3.29-11.43) 09/02/23 13:17 RBC 4.46 10^6/uL (3.85-5.65) 09/02/23 13:17 Hgb 13.60 g/dL (11.27-16.99) 09/02/23 13:17 Hct 41.1 % (36-47) 09/02/23 13:17 MCV 92.2 fl (85-98) 09/02/23 13:17 MCH 30.5 pg (27-33) 09/02/23 13:17 MCHC 33.1 g/dL (30-55) 09/02/23 13:17 RDW 16.8 % (12.1-15.1) H 09/02/23 13:17 Plt Count 194 10^3/cmm (157-399) 09/02/23 13:17 MPV 10.5 fL (7.4-10.4) H 09/02/23 13:17 Neut % (Auto) 80.0 % 09/02/23 13:17 Lymph % (Auto) 12.2 % 09/02/23 13:17 [place] % (Auto) 6.3 % 09/02/23 13:17 Eos % (Auto) 0.4 % 09/02/23 13:17 Baso % (Auto) 0.7 % 09/02/23 13:17 Neut # (Auto) 7.47 10^3/uL (1.8-7.7) 09/02/23 13:17 Lymph # (Auto) 1.1 10^3/uL (0.8-4.8) 09/02/23 13:17 [place] # (Auto) 0.6 10^3/uL (0.2-0.9) 09/02/23 13:17 Eos # (Auto) 0.0 10^3/uL (0.0-0.8) 09/02/23 13:17 Baso # (Auto) 0.1 10^3/uL (0.0-0.1) 09/02/23 13:17 Nucleated RBC % (auto) 0 % 09/02/23 13:17 Nucleated RBCs # 0.0 /100WBC 09/02/23 13:17 Sodium 140 mmol/L (136-145) 09/02/23 13:17 Potassium 4.2 mmol/L (3.5-5.1) 09/02/23 13:17 Chloride 104 mmol/L (98-107) 09/02/23 13:17 Carbon Dioxide 29 mmol/L (22-29) 09/02/23 13:17 Anion Gap 11.2 (5-19) 09/02/23 13:17 BUN 17 mg/dL (8-23) 09/02/23 13:17 Creatinine 0.7 mg/dL (0.5-0.9) 09/02/23 13:17 GFR Calculation Not Reportable 09/02/23 13:17 Glucose 96 mg/dL (65-115) 09/02/23 13:17 Calculated Osmolality 291 mOsm/kg (285-295) 09/02/23 13:17 Calcium 10.8 mg/dL (8.5-10.5) H 09/02/23 13:17 Total Bilirubin 0.2 mg/dL (0.15-1.2) 09/02/23 13:17 AST 52 U/L (0-32) H 09/02/23 13:17 ALT 35 U/L (0-33) H 09/02/23 13:17 Alkaline Phosphatase 104 U/L (35-105) 09/02/23 13:17 Troponin T Baseline 56 ng/L (0-10) H 09/02/23 13:17 Troponin T 120 Minute 116.7 ng/L (0-10) H 09/02/23 15:35 Delta Troponin T 60.7 ABS# (0-10) H* 09/02/23 15:35 Total Protein 6.1 g/dL (6.6-8.7) L 09/02/23 13:17 Albumin 4.4 g/dL (3.5-5.2) 09/02/23 13:17 Globulin 1.7 g/dL (1.3-4.6) 09/02/23 13:17 Lipase 32 U/L (13-60) 09/02/23 13:17 All radiology interpretation(s) finalized by discharge EKG Data EKG 1: I personally reviewed and interpreted this EKG as follows: EKG interpretation date: 09/02/23 EKG interpretation time: 13:20 Interpretation: nsr hr [address] or t wave abnormalities qrs 81 qtc 372 EKG 2: I personally reviewed and interpreted this EKG as follows: EKG interpretation date: 09/02/23 EKG interpretation time: 15:37 Interpretation: nsr hr [address] or t wave abnormalities qrs 80 qtc 365 Critical Care Time Critical Care Time: Critical Care Time: Yes Total Critical Care Time: 40 Attestation: The high probability of a clinically significant, sudden or life threatening deterioration of the patient's cv system(s) required my full and direct attention, intervention and personal management. The critical care time is as shown. This time is in addition to time spent performing any reported procedures but includes the following: [x] Data and vital sign review and interpretation [x] Patient assessment, examination and intervention [x] Documentation [x] Medication orders and management Discharge Plan Discharge Patient Disposition: Admitted As Inpatient Admit Provider: Ayan Avalos Clinical Impression: Non-ST elevation MD (NSTEMI) Condition: Stable Coding Level of Care Code ED Industrial Staff Nurse for Nisha Mcadams
[2023-09-02 13:29] LABS: Basophils # 0.1 10^3/uL (0.0-0.1); Basophils % 0.7 %; Eosinophils % 0.4 %; Hematocrit 41.1 % (36-47); Lymphocytes # 1.1 10^3/uL (0.8-4.8); Lymphocytes % 12.2 %; Mean Corpuscular HGB Conc 33.1 g/dL (30-55); Mean Corpuscular Hemoglobin 30.5 pg (27-33); Mean Corpuscular Volume 92.2 fl (85-98); Mean Platelet Volume 10.5 fL (7.4-10.4); Monocytes # 0.6 10^3/uL (0.2-0.9); Monocytes % 6.3 %; Neutrophils # 7.47 10^3/uL (1.8-7.7); Nucleated Red Blood Cells % 0 %; Platelet Count 194 10^3/cmm (157-399); Red Blood Count 4.46 10^6/uL (3.85-5.65); Red Cell Distribution Width 16.8 % (12.1-15.1); White Blood Count 9.35 10^3/uL (3.29-11.43)
[2023-09-02] MEDS: sodium chloride 0.9% 1,000 ML 999 ML IV (13:32)
[2023-09-02 13:50] LABS: Troponin(5th) Baseline 56 ng/L (0-10)
[2023-09-02 14:02] LABS: Alanine Aminotransferase 35 U/L (0-33); Albumin Level 4.4 g/dL (3.5-5.2); Alkaline Phosphatase 104 U/L (35-105); Anion Gap 11.2 (5-19); Aspartate Amino Transferase 52 U/L (0-32); Blood Urea Nitrogen 17 mg/dL (8-23); Calcium 10.8 mg/dL (8.5-10.5); Carbon Dioxide 29 mmol/L (22-29); Chloride 104 mmol/L (98-107); Globulin 1.7 g/dL (1.3-4.6); Glucose 96 mg/dL (65-115); Lipase 32 U/L (13-60); Osmolality Calculated 291 mOsm/kg (285-295); Potassium 4.2 mmol/L (3.5-5.1); Sodium 140 mmol/L (136-145); Total Bilirubin 0.2 mg/dL (0.15-1.2); Total Protein 6.1 g/dL (6.6-8.7)
--- NOTE | 2023-09-02 15:07 | ECG_ITS ---
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 Measurements Intervals [place] Rate: 76 P: 66 TN: 141 QRS: 3 QRSD: 80 T: 67 QT: 335 QTc: 377 Interpretive Statements SINUS RHYTHM WITH SINUS ARRHYTHMIA Compared to ECG 09/02/2023 13:20:27 No significant changes Electronically Signed On 09-02-2023 17:45:27 CDT by Oriana Gauthier M.D. [id number]
[2023-09-02 16:05] LABS: Troponin 5 2HR 116.7 ng/L (0-10); Troponin 5 2HR Delta 60.7 ABS# (0-10)
--- NOTE | 2023-09-02 16:24 | PM.CONSULT ---
Providers/Reason For Consult Consulting Physician/Specialty*: Sahil Hung MD/ Cardiology Reason for Consult*: NSTEMI Requesting Physician: Dr Cordoba Primary Care Provider: Yehuda Reese DO History of Present Illness History of Present Illness Priscilla Taylor is a 78 year old female with a past medical history of hypertension who presented to hospital with about 30 to 40 minutes of substernal chest discomfort, palpitations and pain radiating to the back. Now is chest pain-free. Initial troponin was 56 which trended up to 116 at 2 hours. She had similar episode about 1 week ago when she had to stop walking and resting for a significant period of time. EKG does not show significant ischemic changes. Review of Systems Const: Denies: fever(s) or chills Eyes: Denies: change in vision ENMT: Denies: throat pain or nasal congestion Card: Reports: chest pain Resp: Denies: dyspnea or productive cough GI: Denies: abdominal pain, vomiting or change in stool character : Denies: dysuria Musc: Denies: back pain or extremity pain Skin/Breast: Denies: rash or lesions Neuro: Denies: headache(s) or dizziness Psych: Denies: anxiety or depression Christiano/Lymph: Denies: easy bruising or easy bleeding Medications/Allergies Home Medications Medication Instructions Recorded Confirmed Last Taken Type clopidogrel 75 mg tablet 75 mg PO DAILY #90 tabs 12/04/22 09/02/23 09/02/23 Rx losartan 100 mg tablet 100 mg PO DAILY #90 tabs 12/04/22 09/02/23 09/02/23 Rx atorvastatin 10 mg tablet 10 mg PO DAILY #90 tabs 04/01/23 09/02/23 09/02/23 Rx ferrous gluconate 324 mg (38 mg 324 mg PO BID #60 tabs 06/17/23 09/02/23 09/02/23 Rx iron) tablet amlodipine 10 mg tablet 10 mg PO DAILY #90 tabs 07/04/23 09/02/23 09/02/23 Rx digoxin 125 mcg (0.125 mg) tablet 125 mcg PO DAILY #90 tabs 07/05/23 09/02/23 09/02/23 Rx escitalopram oxalate 10 mg tablet 10 mg PO DAILY mood #90 tabs 08/02/23 09/02/23 09/02/23 Rx verapamil 240 mg tablet,extended 240 mg PO DAILY 09/02/23 09/02/23 09/02/23 History release Allergies Allergy/AdvReac Type Severity Reaction Status Date / Time No Known Allergies Allergy Verified 09/02/23 13:13 PFSH Acute PFSH: Medical History Breast cancer History of palpitations Surgical History H/O mastectomy Family History Brother CAD (coronary artery disease) Social History Smoking and tobacco/nicotine status: current every day tobacco/nicotine user Alcohol intake: never Substance/Drug Use: never Adopted: No Household members: none Housing: House Marital status: / Highest education level completed: 8th Grade service: No Current occupational status: retired Pets and animals: Yes Current gender identity: Female Vitals/I&O/Wt Last Vital Signs Pulse 82 09/02/23 14:43 Resp 21 H 09/02/23 14:43 BP 107/84 09/02/23 14:43 Pulse Ox 95 09/02/23 14:43 O2 Del Method Room Air 09/02/23 14:43 Weight last 48 hrs Weight 105 lb Physical Exam Narrative: GENERAL: Patient is alert, awake and oriented x3. NECK: No jugular vein distension. [] HEENT: No cyanosis. No icterus. No pallor. [] HEART: Regular S1 and S2. No murmur, rub or gallop. [] LUNGS: Clear to auscultate bilaterally. [] CENTRAL NERVOUS SYSTEM: Grossly nonfocal. [] EXTREMITIES: Lower extremities with 1+ edema bilaterally. Data 09/02/23 13:17 09/02/23 13:17 A&P Assessment and plan (1) Non-ST elevation VA (NSTEMI): (2) Tobacco abuse: (3) Hypertension: Plan Patient has presented with typical chest pain and significant troponin elevation. Findings consistent with non-ST elevation VA. Plan for coronary angiogram with possible percutaneous coronary intervention tomorrow. N.p.o. past midnight. Continue aspirin, Plavix. Anticoagulation started with Lovenox. Continue for now. Order Echocardiogram Thank you for involving us with care of this patient. We will continue to follow. Please call with questions. Consult Attestations Medical Necessity Statement: Care expected to cross 2 midnights. Coding Level of Care Code Acute Code for [facility] Diagnoses Non-ST elevation VA (NSTEMI) I21.4 Tobacco abuse Z72.0 Hypertension I10
[2023-09-02] MEDS: enoxaparin 60 mg/0.6 mL Syringe 50 MG SUBCUT (17:11)
--- NOTE | 2023-09-02 18:29 | ECG_ITS ---
[facility] Test Date: 2023-09-02 Pat Name: Priscilla Taylor Department: Room: [facility] Gender: Female Exercise Manager: : 1945 Requested By: Keren Cordoba Order Number: [id number] Jose MD: Oriana Gauthier M.D. Measurements Intervals [place] Rate: 82 P: 65 MO: 139 QRS: 1 QRSD: 93 T: 63 QT: 333 QTc: 390 Interpretive Statements SINUS RHYTHM POSSIBLE LEFT ATRIAL ENLARGEMENT [-0.1mV P-WAVE IN V1/V2] POSSIBLE RIGHT VENTRICULAR CONDUCTION DELAY [RSR (QR) IN V1/V2] Compared to ECG 09/02/2023 15:37:15 Sinus arrhythmia no longer present Electronically Signed On 09-02-2023 21:42:50 CDT by Oriana Gauthier M.D. [id number]
--- NOTE | 2023-09-02 19:13 | PM.HP ---
Providers/Chief Complaint Admitting Physician: Ayan Avalos DO Primary Care Provider: Yehuda Reese DO Chief Complaint: tachy,chest pain History of Present Illness Priscilla Taylor is a 78 year old female with past medical history of tobaccoism hypertension hyperlipidemia and palpitations presents with palpitations chest tightness and lightheadedness that started this morning 10 AM when she was doing her chores at home. Patient states that she had some chest tightness and that wrapped around into the back. She denies nausea or vomiting she admits to some shortness of breath difficulty breathing type symptoms. Patient denies history of prior NE CVA again she has a history of hypertension and hyperlipidemia and she is a smoker as her risk factors. Currently she is without symptoms and feels better. She is somewhat anxious and would like to smoke. She is agreeable to a nicotine patch Review of Systems Const: Denies: fever(s) or chills Eyes: Denies: change in vision ENMT: Denies: throat pain or nasal congestion Resp: Denies: dyspnea or productive cough GI: Denies: abdominal pain, vomiting or change in stool character : Denies: dysuria Musc: Denies: back pain or extremity pain Skin/Breast: Denies: rash or lesions Neuro: Denies: headache(s) or dizziness Psych: Denies: anxiety or depression Christiano/Lymph: Denies: easy bruising or easy bleeding Medications/Allergies Home Medications Medication Instructions Recorded Confirmed Last Taken Type clopidogrel 75 mg tablet 75 mg PO DAILY #90 tabs 12/04/22 09/02/23 09/02/23 Rx losartan 100 mg tablet 100 mg PO DAILY #90 tabs 12/04/22 09/02/23 09/02/23 Rx atorvastatin 10 mg tablet 10 mg PO DAILY #90 tabs 04/01/23 09/02/23 09/02/23 Rx ferrous gluconate 324 mg (38 mg 324 mg PO BID #60 tabs 06/17/23 09/02/23 09/02/23 Rx iron) tablet amlodipine 10 mg tablet 10 mg PO DAILY #90 tabs 07/04/23 09/02/23 09/02/23 Rx digoxin 125 mcg (0.125 mg) tablet 125 mcg PO DAILY #90 tabs 07/05/23 09/02/23 09/02/23 Rx escitalopram oxalate 10 mg tablet 10 mg PO DAILY mood #90 tabs 08/02/23 09/02/23 09/02/23 Rx verapamil 240 mg tablet,extended 240 mg PO DAILY 09/02/23 09/02/23 09/02/23 History release Allergies Allergy/AdvReac Type Severity Reaction Status Date / Time No Known Allergies Allergy Verified 09/02/23 13:13 PFSH Acute PFSH: Medical History (Updated 09/02/23 @ 19:23 by Ayan Avalos DO) Breast cancer History of palpitations Surgical History H/O mastectomy Family History Brother CAD (coronary artery disease) Social History Smoking and tobacco/nicotine status: current every day tobacco/nicotine user Alcohol intake: never Substance/Drug Use: never Adopted: No Household members: none Housing: House Marital status: / Highest education level completed: 8th Grade service: No Current occupational status: retired Pets and animals: Yes Current gender identity: Female Vitals/I&O/Wt Last Vital Signs Pulse 81 09/02/23 17:34 Resp 21 H 09/02/23 17:07 BP 117/50 09/02/23 17:07 Pulse Ox 96 09/02/23 17:34 O2 Del Method Room Air 09/02/23 17:34 09/02/23 09/02/23 09/02/23 06:59 14:59 22:59 Intake Total 1000 / 1000 Balance 1000 / 1000 Weight last 48 hrs Weight 47.627 kg Physical Exam Narrative: Elderly female with smokers facial lines and wrinkles. No acute acute distress HEENT head is normocephalic atraumatic pupils equal round reactive to light and combination ocular osmoles are intact noted no scleral icterus neck is supple no JVD carotid bruits or lymphadenopathy mucous membranes are moist and slightly erythematous Lymph no lymphadenopathy notable in cervical supraclavicular or inguinal areas Chest: Rises symmetric with inspiration Heart: Regular normal S1-S2 without murmurs clicks gallops or rubs Lungs: Diminished throughout with some mild expiratory wheezing and prolonged expiratory phase Abdomen: Soft nontender nondistended positive bowel sounds Back: Mild kyphosis no scoliosis no CVA tenderness Neuro: Alert and oriented x4 nonfocal on exam Extremity: No clubbing cyanosis or edema. Scar right knee from a right total knee replacement psych: Normal affect and mood Skin no lesions or rashes noted Data 09/02/23 13:17 09/02/23 13:17 Other Labs: AST/ALT 52/35. Baseline troponin 56 2-hour troponin 116 with a delta of 60 CXR: My impression: Hyperinflated lungs. Radiologist's impression: IMPRESSION: 1. Pulmonary hyperinflation which may indicate obstructive lung disease. No acute process noted and no change. EKG 1: My Interpretation: Normal sinus rhythm, rate of 94 MA interval of 0.14 QRS interval of 0.[address] 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 [0.25mV P-WAVE] Compared to ECG 08/15/2017 02:21:29 ST (T wave) deviation no longer present A&P Assessment and plan (1) Non-ST elevation NE (NSTEMI): (2) Serum calcium elevated: (3) Depression: (4) Tobacco abuse: (5) Hypertension: Plan Patient admitted to the cardiac unit and is currently in ICU for overflow. Cardiology consulted and plans to take to cardiac catheterization tomorrow. Lovenox at 1 mg/kg every 12 hours aspirin ordered. Nicotine patch ordered. Continue home meds. N.p.o. after midnight for cardiac catheterization Attestations Medical Necessity Statement*: Patient requires a greater than 2 midnight stay for acute NE requires hospitalization and work-up and exclude complications. Coding Level of Care Code Acute Code for [facility] Diagnoses Non-ST elevation NE (NSTEMI) I21.4 Serum calcium elevated E83.52 Depression F32.A Tobacco abuse Z72.0 Hypertension I10
--- NOTE | 2023-09-02 19:18 | PC.NURSE ---
Shift SUmmary: Patient arrived in ICU from ER at approximately 1730. ALert to person, place, time, and situation. BP: 156/71, HR: 87, RR: 20, SPO2: 94% on room air. Patient has rested comfortably in bed since arrival. Plan is for Angiogram tommorow at 0930. NPO at midnight.
[2023-09-02] MEDS: dextrose 5%-sod chloride 0.45% 1,000 ML 50 ML IV (19:45)
[2023-09-02 20:48] LABS: Troponin 5 6HR 99.18 ng/L (0-10)
[2023-09-02 21:03] LABS: Troponin 5 6HR Delta 43.18 ng/L (0-12)
[2023-09-03] VITALS (202 sets, daily range): BP systolic 91–138; BP diastolic 43–83; PULSE 58–103; RESP 9–33; TEMP 36.1–36.9; O2SAT 71–100
--- NOTE | 2023-09-03 | USCV_ITS ---
Priscilla Taylor Age: 78 Gender: F : 1945 Exam Date: 09/03/2023 09:53 Ordering Phys: Sahil Hung M.D Technologist: Charly Torres [place]am [place] [facility] [place]ication: chest pain BP: 121 / 67 HR: 80 Rhythm: Sinus Technical Quality: MEASUREMENTS (Male / Female) Normal Values 2D ECHO LV Diastolic Diameter PLAX 3.0 cm 4.2 - 5.9 / 3.9 - 5.3 cm LV Systolic Diameter PLAX 1.7 cm IVS Diastolic Thickness 1.0 cm 0.6 - 1.0 / 0.6 - 0.9 cm IVS Systolic Thickness 1.1 cm LVPW Diastolic Thickness 1.0 cm 0.6 - 1.0 / 0.6 - 0.9 cm LVPW Systolic Thickness 1.1 cm LVOT Diameter 2.0 cm LV Ejection Fraction 2D Teich 74.9 % LV Ejection Fraction MOD 2C 76.8 % LV Ejection Fraction 2C AL 76.9 % LA Diameter 2.9 cm IVC Diameter 1.6 cm M-MODE Aortic Annulus Diameter 2.4 cm LA Ao Ratio MM 1.4 MV E Point Septal Separation 0.6 cm DOPPLER AV Peak Velocity 157.0 cm/s LVOT Peak Velocity 108.0 cm/s AV Area Cont Eq vti 2.4 cm squared AV Area Cont Eq pk 2.2 cm squared MV Area PHT 3.2 cm squared Mitral E to A Ratio 0.8 MV E' Velocity 60.0 cm/s Mitral E to MV E' Ratio 12.1 Mitral E to LV E' Lateral Ratio 12.7 Mitral E to LV E' Septal Ratio 11.7 TR Peak Velocity 210.7 cm/s TR Peak Gradient 17.8 mmHg TV Peak E Velocity 83.0 cm/s Right Atrial Pressure 3.0 mmHg Pulmonary Artery Systolic Pressu 20.8 mmHg RV Acceleration Time 0.1 s FINDINGS Left Ventricle Left ventricle is normal in size. LV systolic function is normal with EF of 65 to 70%. No regional wall motion abnormalities are seen. Grade 1 diastolic dysfunction Right Ventricle Normal in size and function Right Atrium Normal in size Left Atrium Normal in size Mitral Valve Mitral valve is thickened. No significant regurgitation. Aortic Valve Aortic valve is thickened. No significant stenosis or regurgitation. Tricuspid Valve Mild tricuspid regurgitation. Insufficient TR jet to calculate RVSP Pulmonic Valve Not well visualized Pericardium Normal Aorta Normal in size IVC Appears to be normal CONCLUSIONS LV systolic function is normal with EF of 65 to 70%. Grade 1 diastolic dysfunction Mild tricuspid regurgitation Compared to prior echocardiogram from 03/2023, no significant changes are seen Sahil Hung MD (Electronically Signed) Final Date: 03 September 2023 11:58 S
[2023-09-03] MEDS: enoxaparin 60 mg/0.6 mL Syringe 50 MG SUBCUT (03:52)
--- NOTE | 2023-09-03 06:14 | XACV_ITS ---
Exam Room: [facility] Ht: 155 cm Wt: 48 kg BSA: 1.43 m2 Gender: Female : 1945 Any Known Allergies: No known allergies Exam Priority: Routine Indication(s): - Non-ST elevation [place] Procedure(s): Procedure Description: Diagnostic procedure Procedure Description: Left Heart Catheterization Procedure Description: Left ventriculography Procedure Description: Coronary Angiography Diagnostic Cath Status: Urgent Diagnostic Findings * No significant disease noted in the Left Main, Left Anterior Descending, Right, or Circumflex coronary arteries. * Coronary angiography shows co-dominance. Conclusions 1. No significant disease noted in the Left Main, Left Anterior Descending, Right, or Circumflex coronary arteries. 2. Findings and presentation consistent with [place] ([place] with normal coronary arteries). 3. Hyperdynamic left ventricular systolic function. Ejection fraction of 70%. Recommendations * Dual antiplatelet therapy for 1 year. * High intensity statin therapy. * Outpatient cardiology follow up in 2-4 weeks. Interventional RX Recommendation: medical therapy and/or counseling Diagnostic RX Recommendation: medical therapy and/or counseling Ventriculography Ejection Fraction: 70.0 % Pressures Phase:Rest AO : / ( 0 ) @ 11:29:00 AM 133 / 63 ( 91 ) @ 11:45:00 AM 132 / 63 ( 91 ) @ 11:45:00 AM 72 / 29 ( 38 ) @ 11:45:00 AM LV : 2 / 0 / 0 @ 11:43:00 AM 131 / -3 / 12 @ 11:44:00 AM 132 / 3 / 18 @ 11:45:00 AM 134 / 2 / 17 @ 11:45:00 AM Valves Phase:DefaultPhase AV : 6.0 @ 11:19:38 AM 6.0 @ 11:19:38 AM AV Mean Gradient: 23.0 @ 11:19:38 AM 23.0 @ 11:19:38 AM Clinical Evaluation EBL: 5mL-10mL Procedural Details Procedure Consent Obtained. Admit Source: In Patient. Current Diagnosis : NSTEMI. Pre-Procedure Time Out. Identified patient by full name and date of as verbalized by the patient/guarantor. Does the consent match the physician's order: Yes. Accurate & Complete Informed Consent: Yes. Inpatient/Outpatient History & Physical on Chart: Yes. If H&P is completed, is and addenduem needed: No; If yes, is the addendum complete: N/A. Visualize and Verify Site with Patient/Guarantor: N/A. Relevant Radiology Images available: N/A. The risks, benefits, and alternatives of sedation and/or procedure were discussed by physician. The patient agrees to continue. Procedure started. [facility] Clinical Fraility Score: 3: Managing Well. 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 Chest Pain Symptom Assessment: Typical Angina Symptoms. Cardiovascular Instability: No. Correct patient, site and procedure confirmed by cath team. Current diagnosis: NSTEMI. PERRLA. Strong, equal hand rug receiving clerk bilaterally. Lungs clear x 5 lobes. IV Site on Arrival: 20 gauge in the right anticubital. IV Fluids: 0.9% NaCl at KVO. 700 mL infused prior to laborer sawmill. Pre Procedural Pulses: bilateral dorsalis pedis was Doppled. Pre Procedural Pulses: bilateral posterior tibial was Doppled. Pre Procedural Pulses: bilateral radial was 3+. Oxygen started at 3liters/min via nasal canula. bilateral groins was prepped with chloroprep then draped in the usual sterile fashion. right radial was prepped with chloroprep then draped in the usual sterile fashion. Physician notified. Baseline sample Acquired. HR: 81 BPM. Physician arrived. Family updated by MD prior to the start of the procedure. Physician scrubbed in. Immediate Pre-Procedure Time Out. Correct Patient: Yes; Correct Procedure: Yes; Correct Site: Yes; Correct Patient Position: Yes; Correct Supplies: Yes; Dried Flammable Prep: Yes; Blood Products Available: N/A;. Lidocaine 1% infiltrated to the right radial. Arterial access obtained. A 5 mozamb[place] TIG catheter in over wire. No heparin indicated per MD, as patient received weight based lovenox dosing within the last 12 hours; 2 consective doses received. Multiple views taken of left coronary artery. Catheter redirected to the RCA. Unable to cannulate: TIG removed over the exchange wire. A 5 mozamb[place] JR4 catheter in over wire. Multiple views taken of right coronary artery. Catheter removed over the exchange wire. A 5 mozambican Angled Pig catheter in over wire. EDP Sample taken: LV 131/-4,12; HR: 88 BPM; SpO2: 100%. LV gram performed in SMALLS @ 10 mL/second for a total of 30 mL. Patient EF: Normal. EDP Sample taken: LV 132/3,18; HR: 88 BPM; SpO2: 98%. Pullback taken: LV 134/2,17; AO 133/63(91); Mean: 23mmHg, Peak to Peak: 6mmHg, SEP: 11sec/min; HR: 84 BPM; SpO2: 98%. Catheter removed over the exchange wire. Physician review of films. Physician scrubbed out. A TR Band was successful obtaining hemostatsis at the Right Radial artery insertion site. TR band placed. Hemostasis obtained. Post Procedure: Pulses reassessed and unchanged. PERRLA. Strong, equal hand rug receiving clerk bilaterally. No VTE prophylaxis required. Medication waste: Lido- 1 ml Nitro- 49.8 mg Heparin- 1000 units Fentanyl- 50 mcg. Total IV fluids: 32.4 mL. Fluoro: 3:03. Contrast type used: Omnipaque 300 mg/mL, 150 mL bottle. [id number]. Post-op diagnosis: Non Obstructive CAD. Complications: None. Estimated blood loss: 5mL-10mL. Responsiveness - Normal response to verbal stimuli; alert and oriented, PERRLA. Airway - Unaffected, no intervention required; spontaneous ventilation. Circulation: W/N/L, pulses unchanged. Nausea/Vomiting: No. Procedure completed. Patient transferred by bed to ICU. Vital chart was stopped. Vital chart was stopped. Procedure started. Access Site Site: Right Radial artery Sheath Size: 6 Fr Hemostasis Method: TR Band Hemostasis Success: Successful Procedure Medications Start: 10:27 AM Stop: 10:27 AM Medication: Versed 1 mg and Fentanyl 25 mcg Amount: 1 Route: I.V. Start: 10:30 AM Stop: 10:30 AM Medication: Versed Amount: 1 mg Route: I.V. Start: 10:33 AM Stop: 10:33 AM Medication: Nitrogylcerin Amount: 200 mcg Route: I.A. Start: 10:43 AM Stop: 10:43 AM Medication: Fentanyl Amount: 25 mcg Route: I.V. I, the attending physician, have reviewed and verified all procedure medications. Yes, all medications given per verbal order History/Risk Factors Hypertension: Yes Dyslipidemia: Yes Peripheral Arterial Disease (PAD): No Myocardial Infarction ([place]): No Obesity: No Renal Disease: No Tobacco Use: Current/Recent(w/in 1 year) Prior Interventions PCI: No CABG: No Valve Surgery: No Report Signatures Finalized by Sahil Hung MD on 09/03/2023 12:40 PM
[2023-09-03] MEDS: aspirin 325 mg Tablet PO (08:07)
[2023-09-03] MEDS: escitalopram 10 mg Tablet PO (08:07)
[2023-09-03] MEDS: clopidogrel 75 mg Tablet PO (08:08)
[2023-09-03] MEDS: digoxin 125 mcg Tablet PO (08:08)
[2023-09-03] MEDS: atorvastatin 40 mg Tablet 20 MG PO (08:08)
[2023-09-03] MEDS: losartan 50 mg Tablet 100 MG PO (08:09)
--- NOTE | 2023-09-03 08:38 | P.PN_ITS ---
Subjective Subjective: Patient is doing well. No chest pain Vitals/I&O/Wt Last Vital Signs Temp 98.3 F 09/03/23 00:00 Pulse 82 09/03/23 08:08 Resp 22 H 09/03/23 06:00 BP 129/83 09/03/23 08:09 Pulse Ox 96 09/03/23 06:00 O2 Del Method Room Air 09/02/23 20:06 09/02/23 09/03/23 09/03/23 22:59 06:59 14:59 Intake Total 1000 / 1000 Balance 1000 / 1000 Weight last 48 hrs Weight 110 lb Weight 105 lb Physical Exam Narrative: GENERAL: Patient is alert, awake and oriented x3. NECK: No jugular vein distension. [] HEENT: No cyanosis. No icterus. No pallor. [] HEART: Regular S1 and S2. No murmur, rub or gallop. [] LUNGS: Clear to auscultate bilaterally. [] CENTRAL NERVOUS SYSTEM: Grossly nonfocal. [] EXTREMITIES: Lower extremities with 1+ edema bilaterally. Data 09/02/23 13:17 09/02/23 13:17 A&P Assessment and plan (1) Non-ST elevation [place] (NSTEMI): (2) Tobacco abuse: (3) Hypertension: Plan Coronary angiogram did not reveal significant CAD. Findings consistent with [place]. ([place] with normal coronary arteries). Continue dual antiplatelet therapy for 6 months to 1 year. Possibility of coronary artery spasm cannot be ruled out. Can down titrate losartan to 50 mg and add amlodipine 5 mg for coronary artery spasm. High intensity statin therapy. At time of discharge will recommend placing on event monitor to rule out arrhythmias. Thank you for involving us with care of this patient. Patient is stable to be discharged from cardiology standpoint. Please call with questions. Attestations Medical Necessity Statement*: Care expected to cross 2 midnight Coding Level of Care Code Acute Code for [facility] Fwd Diagnoses Non-ST elevation [place] (NSTEMI) I21.4 Tobacco abuse Z72.0 Hypertension I10
[2023-09-03] MEDS: verapamil ER 240 mg Tablet PO (10:09)
--- NOTE | 2023-09-03 10:27 | W.PM.OPSUD ---
Surgery/Procedure H&P Update DATE OF PROCEDURE: September 03, 2023 DATE H&P PERFORMED: 09/02/23 H&P UPDATE INFORMATION: I have reviewed H&P completed within last 30 days, I have examined patient prior to procedure and No changes to prior documentation PREOP DIAGNOSIS: NSTEMI PRIMARY INDICATION FOR PROCEDURE: NSTEMI PLANNED PROCEDURE: Operation Date: 09/03/23 10:00 Proposed Procedures p Cardiac Catheterization(Not Applicable) - Sahil Hung M.D Possible percutaneous coronary intervention PATIENT REASSESSED PRIOR TO SEDATION, WITH NO CHANGE NOTED: Yes PHYSICAL EXAM: alert, oriented x 3, clear to auscultation bilaterally and regular rate & rhythm AIRWAY EVAL/ANESTHESIA PLAN: normal airway, ASA III, Local Anesthesia, Risks, benefits & alternatives of sedation and/or procedure discussed and Patient agrees to continue as planned ADDITIONAL INFORMATION: Moderate sedation
[2023-09-03] MEDS: acetaminophen 325 mg Tablet 650 MG PO (11:57)
--- NOTE | 2023-09-03 12:52 | PC.NURSE ---
received patient back from senior label specialist staff at 1110. HR: 73, BP: 118/61, SPO2: 92, temp: 97.... Patient is alert and oriented to peson, place, time, and situation, no complaints.
[2023-09-03] MEDS: ferrous gluconate 324 mg Tablet PO (14:33)
[2023-09-03] MEDS: amlodipine 10 mg Tablet PO (17:07)
--- NOTE | 2023-09-03 17:14 | PC.NURSE ---
discharged patient. Bilateral IVs removed. New medication, appointment, activity, and monitoring coordinator education provided.
--- NOTE | 2023-09-27 08:57 | PM.DCS ---
Discharge Providers Date of Admission: 09/02/23 16:19 Date of Discharge: 09/03/23 Attending Provider at Admission: Ayan Avalos DO Attending Provider at Discharge: Ayan Avalos DO Consults: cardiology Primary Care Provider: Yehuda Reese DO Diagnoses at Discharge Discharge Diagnosis (1) Non-ST elevation IA (NSTEMI): Status: Inactive (2) Tobacco abuse: Status: Acute (3) Hypertension: Status: Acute Reason for Visit Reason for Visit: tachy,chest pain Brief History: Patient had chest pain with radiation into back with 3 risk factors for CAD. Hospital Course Hospital Course Patient had elevated troponins and classic anginal symptoms. She was admitted for NSTEMI with plan for catherization the next morning. Coronary angiogram did not reveal significant CAD.? Findings consistent with [place]. (IA with normal coronary arteries).? Continue dual antiplatelet therapy for 6 months to 1 year.? Possibility of coronary artery spasm cannot be ruled out.? Can down titrate losartan to 50 mg and add amlodipine 5 mg for coronary artery spasm. High intensity statin therapy. At time of discharge will recommend placing on event monitor to rule out arrhythmias. She was discharged in stable condition Physical Exam Narrative: Per Dr. Hung who discharged the patient GENERAL: Patient is alert, awake and oriented x3. NECK: No jugular vein distension. [] HEENT: No cyanosis. No icterus. No pallor. [] HEART: Regular S1 and S2. No murmur, rub or gallop. [] LUNGS: Clear to auscultate bilaterally. [] CENTRAL NERVOUS SYSTEM: Grossly nonfocal. [] EXTREMITIES: Lower extremities with 1+ edema bilaterally. Discharge Data Studies Completed and Pending Completed Studies During Hospitalization Category Date Time Status [employer]IST[employer] request for service Routine Exams 09/03/23 06:14 Completed XR chest 1V portable [id number] Stat Exams 09/02/23 13:07 Completed CV. echo complete* [id number] Routine Ultrasound 09/03/23 Completed Laboratory Results WBC 9.35 10^3/uL (3.29-11.43) 09/02/23 13:17 RBC 4.46 10^6/uL (3.85-5.65) 09/02/23 13:17 Hgb 13.60 g/dL (11.27-16.99) 09/02/23 13:17 Hct 41.1 % (36-47) 09/02/23 13:17 MCV 92.2 fl (85-98) 09/02/23 13:17 MCH 30.5 pg (27-33) 09/02/23 13:17 MCHC 33.1 g/dL (30-55) 09/02/23 13:17 RDW 16.8 % (12.1-15.1) H 09/02/23 13:17 Plt Count 194 10^3/cmm (157-399) 09/02/23 13:17 MPV 10.5 fL (7.4-10.4) H 09/02/23 13:17 Neut % (Auto) 80.0 % 09/02/23 13:17 Lymph % (Auto) 12.2 % 09/02/23 13:17 [place] % (Auto) 6.3 % 09/02/23 13:17 Eos % (Auto) 0.4 % 09/02/23 13:17 Baso % (Auto) 0.7 % 09/02/23 13:17 Neut # (Auto) 7.47 10^3/uL (1.8-7.7) 09/02/23 13:17 Lymph # (Auto) 1.1 10^3/uL (0.8-4.8) 09/02/23 13:17 [place] # (Auto) 0.6 10^3/uL (0.2-0.9) 09/02/23 13:17 Eos # (Auto) 0.0 10^3/uL (0.0-0.8) 09/02/23 13:17 Baso # (Auto) 0.1 10^3/uL (0.0-0.1) 09/02/23 13:17 Nucleated RBC % (auto) 0 % 09/02/23 13:17 Nucleated RBCs # 0.0 /100WBC 09/02/23 13:17 Sodium 140 mmol/L (136-145) 09/02/23 13:17 Potassium 4.2 mmol/L (3.5-5.1) 09/02/23 13:17 Chloride 104 mmol/L (98-107) 09/02/23 13:17 Carbon Dioxide 29 mmol/L (22-29) 09/02/23 13:17 Anion Gap 11.2 (5-19) 09/02/23 13:17 BUN 17 mg/dL (8-23) 09/02/23 13:17 Creatinine 0.7 mg/dL (0.5-0.9) 09/02/23 13:17 GFR Calculation Not Reportable 09/02/23 13:17 Glucose 96 mg/dL (65-115) 09/02/23 13:17 Calculated Osmolality 291 mOsm/kg (285-295) 09/02/23 13:17 Calcium 10.8 mg/dL (8.5-10.5) H 09/02/23 13:17 Total Bilirubin 0.2 mg/dL (0.15-1.2) 09/02/23 13:17 AST 52 U/L (0-32) H 09/02/23 13:17 ALT 35 U/L (0-33) H 09/02/23 13:17 Alkaline Phosphatase 104 U/L (35-105) 09/02/23 13:17 Troponin T Baseline 56 ng/L (0-10) H 09/02/23 13:17 Troponin T 120 Minute 116.7 ng/L (0-10) H 09/02/23 15:35 Delta Troponin T 60.7 ABS# (0-10) H* 09/02/23 15:35 Troponin T Hi Sens 6Hr 99.18 ng/L (0-10) H 09/02/23 19:23 Troponin T Hi Sens 6Hr Delta 43.18 ng/L (0-12) H* 09/02/23 19:23 Total Protein 6.1 g/dL (6.6-8.7) L 09/02/23 13:17 Albumin 4.4 g/dL (3.5-5.2) 09/02/23 13:17 Globulin 1.7 g/dL (1.3-4.6) 09/02/23 13:17 Lipase 32 U/L (13-60) 09/02/23 13:17 Vitals Last Vital Signs Temp 97.9 F 09/03/23 16:45 Pulse 67 09/03/23 16:45 Resp 20 H 09/03/23 16:45 BP 118/67 09/03/23 16:45 Pulse Ox 95 09/03/23 16:45 O2 Del Method Room Air 09/03/23 14:50 Discharge Plan Discharge Patient Disposition: Home Condition: Stable Prescriptions: New aspirin [Enteric Coated Aspirin] 81 mg tablet,delayed release (DR/EC) 81 mg PO DAILY Qty: 90 0RF Continued escitalopram oxalate 10 mg tablet 10 mg PO DAILY Qty: 90 1RF clopidogrel 75 mg tablet 75 mg PO DAILY Qty: 90 3RF amlodipine 10 mg tablet 10 mg PO DAILY Qty: 90 3RF digoxin 125 mcg (0.125 mg) tablet 125 mcg PO DAILY Qty: 90 3RF Discontinued atorvastatin 10 mg tablet 10 mg PO DAILY Qty: 90 3RF No Action losartan 100 mg tablet 50 mg PO DAILY Qty: 90 3RF ferrous gluconate 324 mg (38 mg iron) tablet 324 mg PO DAILY nitroglycerin 0.4 mg tablet, sublingual 0.4 mg sublingual Q5M Qty: 25 2RF Rx Instructions: do not exceed 3 doses per episode atorvastatin 20 mg tablet 20 mg PO DAILY Qty: 90 3RF Women's 50 Plus Daily Formula 400 mcg-500 mg calcium-20 mcg Tablet 1 tab PO DAILY Probiotic 10 billion cell Capsule 10,000 mmu cells PO DAILY metoprolol tartrate 25 mg tablet 25 mg PO BID Qty: 60 0RF Discharge Orders: Discharge Order (Routine); Ordered 09/03/23 Ordered By: Sahil Hung Referrals: Flor Hayward FNP [Nurse Practitioner] - 4-7 days Yehuda Reese DO [Primary Care Provider] - Discharge Diet: Cardiac Discharge Activity: Increase activity as tolerated Patient Instructions: Aspirin (By mouth), Nitroglycerin, Rapid Release (By mouth) (NitroMist, Nitrolingual,..., Opioid Safety Discharge Attestations Time Spent in Discharge Care*: less than 30 min Quality Metrics Clinical Quality Measures [ No reported AMI, CVA or VTE this stay] Coding Level of Care Code Acute Code for Chg Fwd Diagnoses Non-ST elevation IA (NSTEMI) I21.4 Tobacco abuse Z72.0 Hypertension I10
== END 2023-09-03 17:16 | disposition home or self-care (01) | DRG 282 ==
LOC: ER 14:30 → ICU 16:32
PROVIDERS: Internal Medicine; Admitting Provider Internal Medicine; Emergency Provider Emergency Medicine; PCP Family Medicine; Visit Provider Internal Medicine
PROC: B2111ZZ Fluoroscopy of Multiple Coronary Arteries using Low Osmolar Contrast (ICD-10-PCS; principal; 2023-09-03 10:00)
DX: I21.4 Non-ST elevation (NSTEMI) myocardial infarction (principal); F17.210 Nicotine dependence, cigarettes, uncomplicated; I10 Essential (primary) hypertension; I20.1 Angina pectoris with documented spasm; I25.10 Atherosclerotic heart disease of native coronary artery without angina pectoris; E78.5 Hyperlipidemia, unspecified; Z85.3 Personal history of malignant neoplasm of breast; Z79.02 Long term (current) use of antithrombotics/antiplatelets; F32.A Depression, unspecified
CPT/HCPCS: 36415; 71045; 80053; 83690; 84484; 85025; 93005; 93306; 93458; 94664; 96372; 96376; 99152; 99153; 99285; C1769; C1887; C1894; J1644; J1650; J2250; J3010; J3490; J7030; J7799; Q9967

== ENCOUNTER 2023-09-10 14:37 | Emergency (ER) | payer MEDICARE, SELFPAY ==
--- NOTE | 2023-09-10 14:43 | XRR_ITS ---
PROCEDURE INFORMATION: Exam: XR Chest Exam date and time: 09/10/2023 2:55 PM Age: 78 years old Clinical indication: Other: Tachycardia; Prior surgery; Surgery date: 6+ months; Surgery type: Breast.No history of trauma or recent surgery is provided. TECHNIQUE: Imaging protocol: Radiologic exam of the chest. 1image(s) are provided. Views: 1 view. COMPARISON: 1. CR XR chest 1V portable [id number] 09/02/2023 1:09 PM 2. CR XR chest 2V* [id number] 03/03/2019 10:49 AM FINDINGS: Lungs: There are chronic granulomatous calcifications present similar. The lung volumes are slightly increased overall suggestive of mild air trapping. No lobar consolidation is appreciated. There is some subsegmental atelectasis versus post inflammatory scarring demonstrated. Pleural spaces: There is minimal costophrenic angle blunting similar overall. No pneumothorax is appreciated. Heart/Mediastinum: The cardiomediastinal silhouette is within normal. No cardiac decompensation is appreciated. Diaphragm: The hemidiaphragms are symmetric. Bones/joints: Osseous alignment is maintained.No interval displaced fracture or dislocation is appreciated. There is some chronic appearing rib deformity similar overall. Soft tissues: No radiopaque foreign body or subcutaneous emphysema is appreciated. There are postsurgical changes of the left chest wall and soft tissues similar overall. There is skin fold and chest wall soft tissue averaging similar overall and could also represent some underlying parenchymal scarring including at the left lower lung zone.No other significant interval changes are appreciated. XR/XR chest 1V portable [id number] IMPRESSION: No interval lobar consolidation or cardiac decompensation is appreciated. There is some ground-glass attenuation although could also represent some chest wall soft tissue averaging of the left lower lung zone. Consider two-view chest.
[2023-09-10 14:50] VITALS: BP 95/60; PULSE 94; RESP 18; TEMP 36.7; O2SAT 98; BMI 24.5
--- NOTE | 2023-09-10 14:53 | W.ED.GENADLT ---
HPI - General Adult General: Chief complaint: Arrhythmia/Palpitations Stated complaint: High Heart rate Time Seen by Provider: 09/10/23 14:43 History of Present Illness: Patient presents to the ER with complaints of tachycardia. EMS stated when they got there the patient said her heart has been racing since about 1230 1:00. There EKG showed SVT at a rate about 177 bpm. Upon putting the patient on the stretcher in taking her over the bumpy path patient converted down to a sinus tachycardia of about 100 220 bpm. Upon arrival here patient's heart rate was approximately 100 beats a minute. Patient denied chest pain during this time. Patient said this is the third time this happened in the last month. She said the previous time patient was admitted here and underwent an angiogram. Patient said the angiogram was negative. Review of Systems General: Reports: 10 or more systems reviewed and unremarkable except in HPI and below PFSH ED PFSH: Medical History Breast cancer History of palpitations Non-ST elevation [place] (NSTEMI) Serum calcium elevated Surgical History H/O mastectomy Family History Brother CAD (coronary artery disease) Social History Smoking and tobacco/nicotine status: current every day tobacco/nicotine user Alcohol intake: never Substance/Drug Use: never Adopted: No Household members: none Housing: House Marital status: / Highest education level completed: 8th Grade service: No Current occupational status: retired Pets and animals: Yes Current gender identity: Female Physical Exam Const: COMMON NORMALS: no acute distress, average body habitus, patient oriented x3, no limitations, healthy appearing, alert and well nourished HENMT: COMMON NORMALS: normocephalic, atraumatic, hearing grossly normal bilaterally, external ears normal, Normal external nose present, moist oral mucous membranes and oropharynx normal HEAD & SCALP: normocephalic and atraumatic NOSE: Normal external nose present EXTERNAL EAR: Yes external ears normal Eye: COMMON NORMALS: Equal, round and reactive pupils present PUPIL: Yes Equal, round and reactive pupils present Neck/C-Spine: COMMON NORMALS: full ROM, no lymphadenopathy, supple, no meningeal signs, no JVD and Thyroid normal THYROID: Thyroid normal Lymph: LYMPHATIC: no lymphadenopathy noted Chest: COMMONS NORMALS: normal inspection of the chest and normal palpation of entire chest wall Resp: COMMON NORMALS: normal respiratory effort, No retractions, No use of accessory muscles and clear to auscultation bilaterally AUSCULTATION: clear to auscultation bilaterally Cardio: COMMON NORMALS: no JVD, regular rhythm, S1 normal heart sound present, S2 normal heart sound present, No gallops present (Cardio), No clicks present (Cardio), No murmurs present (Cardio) and No rub (Cardio); negative for regular rate (Mild tachycardia) RATE: abnormal rate (Mild tachycardia) RHYTHM: regular rhythm HEART SOUNDS: S1 normal heart sound present and S2 normal heart sound present GI: COMMON NORMALS: Normal to inspection, nondistended, normoactive bowel sounds present, Soft to palpation, non-tender, No hepatosplenomegaly present and no masses PALPATION: Yes Soft to palpation and Yes No hepatosplenomegaly present Neuro: COMMON NORMALS: patient oriented x3 SENSORIUM/ORIENTATION: Yes alert MENINGEAL SIGNS: Yes no meningeal signs Course Vital Signs: Vital signs: Vital Signs Temperature 98.1 F 09/10/23 14:50 Pulse Rate 79 09/10/23 17:30 Respiratory Rate 18 09/10/23 17:30 Blood Pressure 136/64 09/10/23 17:30 Pulse Oximetry 100 09/10/23 17:30 Oxygen Delivery Me thod Room Air 09/10/23 17:30 MDM - General Adult Medical Decision Making Patient presented with a history of SVT per EMS patient not have any SVT during her stay here lab work was obtained which showed a slightly elevated troponin of 19-41 with a delta of 22. Negative EKGs for ST elevation negative chest pain. Dr. Wiley was consulted who said this is just due to demand ischemia he is put on low-dose beta-ky such as metoprolol 25 twice daily and discharge her home. She did have a negative angiogram 1 week ago. Differential Diagnosis SVT, tachycardia, A-fib with RVR Medical Records I reviewed the patient's medical records. Lab Data I reviewed the patient's lab results. 09/10/23 14:50 09/10/23 14:50 Radiology Impressions Chest X-Ray 09/10/23 14:43 IMPRESSION: No interval lobar consolidation or cardiac decompensation is appreciated. There is some ground-glass attenuation although could also represent some chest wall soft tissue averaging of the left lower lung zone. Consider two-view chest. Laboratory Results WBC 9.27 10^3/uL (3.29-11.43) 09/10/23 14:50 RBC 4.72 10^6/uL (3.85-5.65) 09/10/23 14:50 Hgb 14.50 g/dL (11.27-16.99) 09/10/23 14:50 Hct 44.1 % (36-47) 09/10/23 14:50 MCV 93.4 fl (85-98) 09/10/23 14:50 MCH 30.7 pg (27-33) 09/10/23 14:50 MCHC 32.9 g/dL (30-55) 09/10/23 14:50 RDW 15.7 % (12.1-15.1) H 09/10/23 14:50 Plt Count 173 10^3/cmm (157-399) 09/10/23 14:50 MPV 10.3 fL (7.4-10.4) 09/10/23 14:50 Neut % (Auto) 81.0 % 09/10/23 14:50 Lymph % (Auto) 11.3 % 09/10/23 14:50 [place] % (Auto) 6.1 % 09/10/23 14:50 Eos % (Auto) 0.6 % 09/10/23 14:50 Baso % (Auto) 0.8 % 09/10/23 14:50 Neut # (Auto) 7.50 10^3/uL (1.8-7.7) 09/10/23 14:50 Lymph # (Auto) 1.1 10^3/uL (0.8-4.8) 09/10/23 14:50 [place] # (Auto) 0.6 10^3/uL (0.2-0.9) 09/10/23 14:50 Eos # (Auto) 0.1 10^3/uL (0.0-0.8) 09/10/23 14:50 Baso # (Auto) 0.1 10^3/uL (0.0-0.1) 09/10/23 14:50 Nucleated RBC % (auto) 0 % 09/10/23 14:50 Nucleated RBCs # 0.0 /100WBC 09/10/23 14:50 PT 14.00 SECONDS (12.1-14.9) 09/10/23 14:50 INR 1.05 (0.8-1.2) 09/10/23 14:50 Sodium 140 mmol/L (136-145) 09/10/23 14:50 Potassium 3.9 mmol/L (3.5-5.1) 09/10/23 14:50 Chloride 104 mmol/L (98-107) 09/10/23 14:50 Carbon Dioxide 29 mmol/L (22-29) 09/10/23 14:50 Anion Gap 10.9 (5-19) 09/10/23 14:50 BUN 17 mg/dL (8-23) 09/10/23 14:50 Creatinine 0.7 mg/dL (0.5-0.9) 09/10/23 14:50 GFR Calculation Not Reportable 09/10/23 14:50 Glucose 97 mg/dL (65-115) 09/10/23 14:50 Calculated Osmolality 291 mOsm/kg (285-295) 09/10/23 14:50 Calcium 10.1 mg/dL (8.5-10.5) 09/10/23 14:50 Total Bilirubin 0.4 mg/dL (0.15-1.2) 09/10/23 14:50 AST 19 U/L (0-32) 09/10/23 14:50 ALT 14 U/L (0-33) 09/10/23 14:50 Alkaline Phosphatase 80 U/L (35-105) 09/10/23 14:50 Troponin T Baseline 19 ng/L (0-10) H 09/10/23 14:50 Troponin T 120 Minute 41.36 ng/L (0-10) H 09/10/23 16:40 Delta Troponin T 22.36 ABS# (0-10) H* 09/10/23 16:40 Total Protein 6.4 g/dL (6.6-8.7) L 09/10/23 14:50 Albumin 4.4 g/dL (3.5-5.2) 09/10/23 14:50 Globulin 2.0 g/dL (1.3-4.6) 09/10/23 14:50 TSH 3.49 uIU/mL (0.27-4.20) 09/10/23 14:50 Urine Color Yellow (Yellow) 09/10/23 16:28 Urine Appearance Sl hazy (CLEAR) A 09/10/23 16:28 Urine pH 7 (5-7) 09/10/23 16:28 Ur Specific [place] 1.015 (1.005-1.030) 09/10/23 16:28 Urine Protein Neg (Negative) 09/10/23 16:28 Urine Glucose (UA) Norm (Normal) 09/10/23 16:28 Urine Ketones Negative (Negative) 09/10/23 16:28 Urine Blood Neg (Negative) 09/10/23 16:28 Urine Nitrate Negative (Negative) 09/10/23 16:28 Urine Bilirubin Neg (Negative) 09/10/23 16:28 Urine Urobilinogen Norm mg/dL (Negative) 09/10/23 16:28 Ur Leukocyte Esterase Negative (Negative) 09/10/23 16:28 Urine RBC 0-4 /hpf (0-2) H 09/10/23 16:28 Urine WBC 0-4 /hpf (0-5) H 09/10/23 16:28 Ur Squamous Epith Cells 0-4 /hpf (0-5) H 09/10/23 16:28 Amorphous Sediment 1+ /hpf 09/10/23 16:28 Urine Bacteria Trace /hpf (NONE) 09/10/23 16:28 Urine Mucus Trace /hpf 09/10/23 16:28 Digoxin 1.8 ng/mL (0.6-1.2) H 09/10/23 14:50 All radiology interpretation(s) finalized by discharge EKG Data EKG 1: I personally reviewed and interpreted this EKG as follows: EKG interpretation date: 09/10/23 EKG interpretation time: 15:05 Prior EKG tracings: not available for review Interpretation: EKG showed ventricular rate 83 beats minute, VT interval 138, QRS duration 90, QTc 379, sinus rhythm, possible right atrial enlargement, left atrial enlargement, right ventricular conduction delay Computer generated interpretation: Chest X-Ray 09/10/23 14:43 IMPRESSION: No interval lobar consolidation or cardiac decompensation is appreciated. There is some ground-glass attenuation although could also represent some chest wall soft tissue averaging of the left lower lung zone. Consider two-view chest. EKG 2: I personally reviewed and interpreted this EKG as follows: EKG interpretation date: 09/10/23 EKG interpretation time: 17:11 Prior EKG tracings: available for review Interpretation: EKG showed ventricular rate 80 bpm, VT interval 141, QRS duration 89, QTc of 384, sinus rhythm, possible left atrial enlargement, right ventricular conduction delay Computer generated interpretation: Chest X-Ray 09/10/23 14:43 IMPRESSION: No interval lobar consolidation or cardiac decompensation is appreciated. There is some ground-glass attenuation although could also represent some chest wall soft tissue averaging of the left lower lung zone. Consider two-view chest. Discharge Plan Discharge Patient Disposition: Home Clinical Impression: Supraventricular tachycardia Condition: Stable Prescriptions: New metoprolol tartrate 25 mg tablet 25 mg PO BID Qty: 60 0RF No Action escitalopram oxalate 10 mg tablet 10 mg PO DAILY Qty: 90 1RF losartan 100 mg tablet 100 mg PO DAILY Qty: 90 3RF clopidogrel 75 mg tablet 75 mg PO DAILY Qty: 90 3RF ferrous gluconate 324 mg (38 mg iron) tablet 324 mg PO BID Qty: 60 2RF amlodipine 10 mg tablet 10 mg PO DAILY Qty: 90 3RF digoxin 125 mcg (0.125 mg) tablet 125 mcg PO DAILY Qty: 90 3RF nitroglycerin 0.4 mg tablet, sublingual 0.4 mg sublingual Q5M Qty: 25 2RF Rx Instructions: do not exceed 3 doses per episode atorvastatin 20 mg tablet 20 mg PO DAILY Qty: 90 3RF verapamil 240 mg tablet extended release 240 mg PO DAILY aspirin [Enteric Coated Aspirin] 81 mg tablet,delayed release (DR/EC) 81 mg PO DAILY Qty: 90 0RF Women's 50 Plus Daily Formula 400 mcg-500 mg calcium-20 mcg Tablet 1 tab PO DAILY Probiotic 10 billion cell Capsule 10,000 mmu cells PO DAILY Discharge Orders: Discharge ED (Routine); Ordered 09/10/23 Ordered By: Jude Tanner Referrals: Yehuda Reese DO [Primary Care Provider] - 1 week Patient Instructions: Tachycardia (ED) Activity Restrictions/Additional Instructions: Please take your metoprolol 25 mg 1 pill twice daily as directed. This will help control your heart rate. Please follow-up with your family practice doctor within the next 7 to 10 days as needed for further evaluation and treatment. Coding Level of Care Code ED Certified Technician Specialist for Nisha Mcadams
[2023-09-10 14:58] LABS: Basophils # 0.1 10^3/uL (0.0-0.1); Basophils % 0.8 %; Eosinophils # 0.1 10^3/uL (0.0-0.8); Eosinophils % 0.6 %; Hematocrit 44.1 % (36-47); Lymphocytes # 1.1 10^3/uL (0.8-4.8); Lymphocytes % 11.3 %; Mean Corpuscular HGB Conc 32.9 g/dL (30-55); Mean Corpuscular Hemoglobin 30.7 pg (27-33); Mean Corpuscular Volume 93.4 fl (85-98); Mean Platelet Volume 10.3 fL (7.4-10.4); Monocytes # 0.6 10^3/uL (0.2-0.9); Monocytes % 6.1 %; Nucleated Red Blood Cells % 0 %; Platelet Count 173 10^3/cmm (157-399); Red Blood Count 4.72 10^6/uL (3.85-5.65); Red Cell Distribution Width 15.7 % (12.1-15.1); White Blood Count 9.27 10^3/uL (3.29-11.43)
--- NOTE | 2023-09-10 15:05 | ECG_ITS ---
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 Measurements Intervals [place] Rate: 83 P: 67 TX: 138 QRS: -2 QRSD: 90 T: 73 QT: 339 QTc: 399 Interpretive Statements SINUS RHYTHM POSSIBLE RIGHT ATRIAL ENLARGEMENT [0.25mV P-WAVE] POSSIBLE LEFT ATRIAL ENLARGEMENT [-0.1mV P-WAVE IN V1/V2] POSSIBLE RIGHT VENTRICULAR CONDUCTION DELAY [RSR (QR) IN V1/V2] Compared to ECG 09/02/2023 18:29:15 No significant changes Electronically Signed On 09-10-2023 16:30:45 CDT by Oriana Gauthier M.D. [email or web address]
[2023-09-10 15:16] LABS: INR 1.05 (0.8-1.2)
[2023-09-10 15:21] LABS: Digoxin 1.8 ng/mL (0.6-1.2)
[2023-09-10 15:22] LABS: Troponin(5th) Baseline 19 ng/L (0-10)
[2023-09-10 15:32] LABS: Alanine Aminotransferase 14 U/L (0-33); Albumin Level 4.4 g/dL (3.5-5.2); Alkaline Phosphatase 80 U/L (35-105); Anion Gap 10.9 (5-19); Aspartate Amino Transferase 19 U/L (0-32); Blood Urea Nitrogen 17 mg/dL (8-23); Calcium 10.1 mg/dL (8.5-10.5); Carbon Dioxide 29 mmol/L (22-29); Chloride 104 mmol/L (98-107); Creatinine Clr Calc Pharmacy 47.8205; Glucose 97 mg/dL (65-115); Osmolality Calculated 291 mOsm/kg (285-295); Potassium 3.9 mmol/L (3.5-5.1); Sodium 140 mmol/L (136-145); Thyroid Stimulating Hormone 3.49 uIU/mL (0.27-4.20); Total Bilirubin 0.4 mg/dL (0.15-1.2); Total Protein 6.4 g/dL (6.6-8.7)
--- NOTE | 2023-09-10 16:43 | ECG_ITS ---
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 Measurements Intervals [place] Rate: 80 P: 66 ND: 141 QRS: 22 QRSD: 89 T: 68 QT: 348 QTc: 402 Interpretive Statements SINUS RHYTHM POSSIBLE LEFT ATRIAL ENLARGEMENT [-0.1mV P-WAVE IN V1/V2] POSSIBLE RIGHT VENTRICULAR CONDUCTION DELAY [RSR (QR) IN V1/V2] Compared to ECG 09/10/2023 15:05:39 No significant changes Electronically Signed On 09-10-2023 17:47:27 CDT by Oriana Gauthier M.D. [id number]
[2023-09-10 16:45] LABS: Add Urine Microscopic? YES; Bilirubin Urine Neg (Negative); Blood Urine Neg (Negative); Glucose Urine UA Norm (Normal); Ketones Urine Negative (Negative); Leukocyte Esterase Urine Negative (Negative); Nitrate Urine Negative (Negative); Protein Urine Neg (Negative); Specific Gravity, Urine 1.015 (1.005-1.030); Urine Appearance SL Hazy (CLEAR); Urine Color Yellow (Yellow); Urobilinogen Urine Norm (Negative); pH Urine 7 (5-7)
[2023-09-10 17:06] LABS: Add Urine Culture? No; Amorphous Sediment Urine 1+ /hpf; Bacteria Urine TRACE /hpf; Mucus Urine TRACE /hpf; RBC Urine 0-4 /hpf (0-2); Squamous Epithelial Cell Urine 0-4 /hpf (0-5); WBC Urine 0-4 /hpf (0-5)
[2023-09-10 17:30] VITALS: BP 136/64; PULSE 79; RESP 18; O2SAT 100
[2023-09-10 17:33] LABS: Troponin 5 2HR 41.36 ng/L (0-10)
[2023-09-10 17:42] LABS: Troponin 5 2HR Delta 22.36 ABS# (0-10)
[2023-09-10] MEDS: metoprolol tartrate 25 mg Tablet PO (18:11)
[2023-09-10 18:13] VITALS: BP 136/70; PULSE 90; RESP 18; TEMP 36.6; O2SAT 100
== END 2023-09-10 18:48 | disposition home or self-care (01) ==
PROVIDERS: Emergency Provider Emergency Medicine; PCP Family Medicine
DX: I47.10 Supraventricular tachycardia, unspecified (principal); Z79.02 Long term (current) use of antithrombotics/antiplatelets; Z79.82 Long term (current) use of aspirin; Z72.0 Tobacco use; Z85.3 Personal history of malignant neoplasm of breast; I25.2 Old myocardial infarction
CPT/HCPCS: 36415; 71045; 80053; 80162; 81001; 84443; 84484; 85025; 85610; 93005; 99285

== ENCOUNTER → 2023-09-12 09:13 | Outpatient (BNVA) | payer MEDICARE, SELFPAY | PROVIDERS: PCP Family Medicine; Visit Provider Nurse Practitioner Family | DX: I47.10 Supraventricular tachycardia, unspecified (principal); I10 Essential (primary) hypertension; F17.200 Nicotine dependence, unspecified, uncomplicated | CPT/HCPCS: 99214 ==

== ENCOUNTER → 2023-09-25 11:07 | Outpatient (BNVA) | payer MEDICARE, SELFPAY | PROVIDERS: PCP Family Medicine; Visit Provider Nurse Practitioner | DX: K62.5 Hemorrhage of anus and rectum (principal); F17.210 Nicotine dependence, cigarettes, uncomplicated; D64.9 Anemia, unspecified; E61.1 Iron deficiency | CPT/HCPCS: 83550; 85025 ==

== ENCOUNTER → 2023-10-01 10:07 | Outpatient (BNVA) | payer MEDICARE, SELFPAY | PROVIDERS: PCP Family Medicine; Referring Provider Nurse Practitioner; Visit Provider Surgery | DX: K62.5 Hemorrhage of anus and rectum (principal); D64.9 Anemia, unspecified | CPT/HCPCS: 99204 ==

== ENCOUNTER 2023-10-09 11:11 | Outpatient (CLI) | payer MEDICARE, SELFPAY ==
--- NOTE | 2023-10-09 12:00 | CT_ITS ---
WS: [id number] CT CHEST, ABDOMEN AND PELVIS WITHOUT CONTRAST HISTORY: K62.5 - Hemorrhage of anus and rectum TECHNIQUE: Contiguous 5 mm axial imaging performed through the chest, abdomen and pelvis without IV c ontrast, oral contrast has been provided. Coronal and sagittal reformats chest. Coronal and sagittal reformats through the abdomen and pelvis. All CT scans at [facility] use at least one of thes e dose optimization techniques: automated exposure control; mA and/or kV adjustment per patient size (includes targeted exams where dose is matched to clinical indication); or iterative reconstruction. CONTRAST: None DLP: 401.48 mGy.cm COMPARISON: 01/24/[address]: Hyperexpanded lungs from emphysema. Spiculated solid nodule at the lingula measures 1.8 x 2 .5 cm and extends over a length of 2.2 cm with adjacent pleural tethering and tagging. There is an ad ditional smaller pulmonary nodule at the LEFT lung base measuring 1.1 x 0.8 cm. There are a few addit ional benign-appearing scattered granulomata in the RIGHT lung. Moderate atherosclerosis aorta. Mildly ectatic aorta. Normal sized pulmonary artery. There is fullnes s in the hilar regions bilaterally. There are lymph nodes present some of these are calcified. I do b elieve there are enlarged lymph nodes in the subcarinal space measuring up to 1.8 cm. These would be better evaluated by postcontrast evaluation. Prior LEFT mastectomy with LEFT axillary sam dissectio n. Abdomen CT: There are a few scattered areas of decreased attenuation within the liver. These are prob ably cysts. Hepatic cysts were identified in 2010. There are additional granulomata. Normal size sple en with granulomata. Negative gallbladder. Atrophic pancreas with calcification. Pancreatic head appe ars prominent but this is limited without IV contrast. No adrenal mass. Moderate atherosclerosis aort a. Bilateral renal calculi with no obstruction. No GI tract obstruction. Mild thickening of the stomach wall may be due to under distention. Inspissa ant fecal material throughout the colon. By CT no mass identified. No ascites or adenopathy. Pelvic CT: Urinary bladder is not distended. Atrophic uterus. No osseous destruction. IMPRESSION: 1. Solid spiculated mass at the lingula measures 1.8 x 2.5 x 2.2 cm. There is an additional smaller m ass at the LEFT lung base measuring 1.1 x 0.8 cm. Suspicious for primary lung cancer with metastatic disease versus metastatic disease. Recommend follow-up PET/CT imaging. 2. Suspicious but indeterminate for subcarinal enlarged lymph nodes. Assessment is limited without IV contrast. 3. Diffuse inspissated fecal material throughout the colon with no obstructive pattern. To better tyrese luate rectal bleeding colonoscopy should be obtained. 4. No ascites or adenopathy. 5. Fullness in the region of the pancreatic head. This can be further evaluated also by PET/CT brycein g. 6. Prior LEFT mastectomy with LEFT axillary sam dissection.
[2023-10-09] MEDS: iohexol 350 mg/mL 500 mL Btl (per mL) PO (12:09)
== END 2023-10-09 11:12 | disposition home or self-care (01) ==
PROVIDERS: PCP Family Medicine; Visit Provider Nurse Practitioner
DX: K62.5 Hemorrhage of anus and rectum (principal); F17.210 Nicotine dependence, cigarettes, uncomplicated; R91.8 Other nonspecific abnormal finding of lung field; Z90.12 Acquired absence of left breast and nipple
CPT/HCPCS: 71250; 74176; Q9967

== ENCOUNTER 2023-10-29 13:47 | Outpatient (CLI) | payer MEDICARE, SELFPAY ==
--- NOTE | 2023-10-29 11:30 | PETR_ITS ---
PROCEDURE INFORMATION: Exam: PET/CT Skull Base to Mid-thigh Exam date and time: 10/29/2023 12:11 PM Age: 78 years old Clinical indication: Abnormal findings; Solid spiculated mass at the lingula measures 1.8 x 2.5 x 2.2 cm. There is an additional smaller mass at the left lung base measuring 1.1 x 0.8 cm. Suspicious for primary lung cancer with metastatic disease versus metastatic disease. Recommend follow-up pet/ct imaging. 2. Suspicious but indeterminate for subcarinal enlarged lymph nodes. Assessment is limited without iv contrast; Prior surgery; Surgery date: 6+ months; Patient HX: HX of left breast cancer; Additional info: R91.8 - other nonspecific abnormal finding of lung field, . solid spiculated mass at the lingula measures 1.8 x 2.5 x LABS AND CLINICAL REPORTS: Glucose: 104 mg/dl Treatment strategy for malignancy (PET staging): Initial Staging (PI) TECHNIQUE: Imaging protocol: Following at least four-hour fasting and following the injection of radiopharmaceutical, low dose CT images were obtained. Then, PET images were obtained. Attenuation corrected images were constructed using the CT scan. Fused images of PET and CT were reviewed. The standardized uptake values (SUV) reported below are maximum values within a region of interest, expressed in gm/ml. Exam includes orbital meatal line to mid-thigh. Radiopharmaceutical: 12.98 mCi F-18 FDG (Fluorodeoxyglucose), IV. Time of imaging post radiopharmaceutical administration: 1 hour Injection site: Right antecubital COMPARISON: [place] [id number] 10/09/2023 12:55 PM FINDINGS: Brain: Visualized brain has normal physiologic uptake. Pharynx: No abnormal uptake. Larynx: No abnormal uptake. Lungs, pleura and trachea: A solid nodule within the lingula measuring 2.6 x 1.5 cm on series 3, image 87 is noted, SUV max 6.0. A solid left lower lobe nodule measures 1.1 cm in diameter on series 3, image 102, SUV max 2.4. Calcified granulomas in the right lung are noted. Heart: Normal physiologic uptake. Mediastinal space: No abnormal uptake. Liver: No abnormal uptake. Gallbladder and bile ducts: No abnormal uptake. Pancreas: No abnormal uptake. Benign-appearing coarse calcifications in the pancreas are noted. Spleen: No abnormal uptake. Calcified granulomas in the spleen are present. Adrenal glands: No abnormal uptake. Kidneys and ureters: Normal physiologic uptake. There are small bilateral nonobstructing renal calculi. Stomach and bowel: No abnormal uptake. Vasculature: No abnormal uptake. Lymph nodes: Calcified mediastinal and right hilar lymph nodes are present. Mild uptake in a possible 1.1 cm left hilar lymph node on series 3, image 81 is noted, SUV max 2.8. Uptake in the subcarinal region in a possible lymph node measuring approximately 1.1 cm in diameter on series 3, image 79 is noted, SUV max 2.9. Assessment of this presence and size of lymph nodes in these regions is limited without intravenous contrast. Bones/joints: No abnormal uptake in the visualized axial and appendicular skeleton. There is mild diffuse vertebral body spondylosis. Soft tissues: There are postoperative changes of left axillary lymph node dissection and left mastectomy. METRICS: Mediastinal blood pool: SUV max 1.8 [facility] [id number] IMPRESSION: 1. Radiotracer avid lingular and left lower lobe pulmonary nodules are noted compatible with malignancy. 2. Mild uptake in the left hilar region and subcarinal space is noted, likely within small lymph nodes which are not well defined without intravenous contrast. Consider dedicated CT of the chest with contrast for more definitive assessment. This uptake may be related to infectious or inflammatory changes although malignancy cannot be excluded. 3. Old granulomatous changes. 4. Postoperative changes of left mastectomy and left axillary lymph node dissection. 5. Nonobstructing bilateral renal calculi. 6. Additional nonurgent findings as detailed above.
== END 2023-10-29 13:48 | disposition home or self-care (01) ==
PROVIDERS: PCP Family Medicine; Visit Provider Nurse Practitioner
DX: R91.8 Other nonspecific abnormal finding of lung field (principal); R59.0 Localized enlarged lymph nodes; Z90.12 Acquired absence of left breast and nipple; Z90.89 Acquired absence of other organs; N20.0 Calculus of kidney; Z85.3 Personal history of malignant neoplasm of breast
CPT/HCPCS: 78815; A9552

== ENCOUNTER → 2023-12-06 11:06 | Outpatient (BNVA) | payer MEDICARE, SELFPAY | PROVIDERS: PCP Family Medicine; Visit Provider Nurse Practitioner Family | DX: R00.2 Palpitations (principal); I10 Essential (primary) hypertension; F17.200 Nicotine dependence, unspecified, uncomplicated | CPT/HCPCS: 99214 ==

== ENCOUNTER → 2023-12-12 09:56 | Outpatient (BNVA) | payer MEDICARE, SELFPAY | PROVIDERS: PCP Family Medicine; Referring Provider Family Medicine; Visit Provider Internal Medicine Pulmonary Disease | DX: R94.2 Abnormal results of pulmonary function studies (principal); J43.9 Emphysema, unspecified; F17.210 Nicotine dependence, cigarettes, uncomplicated; R06.02 Shortness of breath | CPT/HCPCS: 99204 ==

== ENCOUNTER 2024-01-06 12:09 | Observation (INO) | payer MEDICARE, SELFPAY ==
[2024-01-06 12:38] LABS: Basophils % 0.6 %; Eosinophils % 0.3 %; Lymphocytes # 1.8 10^3/uL (0.8-4.8); Lymphocytes % 27.6 %; Mean Corpuscular HGB Conc 33.1 g/dL (30-55); Mean Corpuscular Volume 96.4 fl (85-98); Mean Platelet Volume 10.4 fL (7.4-10.4); Monocytes # 0.3 10^3/uL (0.2-0.9); Monocytes % 4.2 %; Neutrophils # 4.44 10^3/uL (1.8-7.7); Nucleated Red Blood Cells % 0 %; Platelet Count 164 10^3/cmm (157-399); Red Blood Count 3.63 10^6/uL (3.85-5.65); Red Cell Distribution Width 12.5 % (12.1-15.1); White Blood Count 6.63 10^3/uL (3.29-11.43)
[2024-01-06 12:51] LABS: INR 1.01 (0.8-1.2)
[2024-01-06 12:58] LABS: Alanine Aminotransferase 11 U/L (0-33); Albumin Level 3.8 g/dL (3.5-5.2); Alkaline Phosphatase 70 U/L (35-105); Anion Gap 14.9 (5-19); Aspartate Amino Transferase 20 U/L (0-32); Blood Urea Nitrogen 18 mg/dL (8-23); Calcium 8.9 mg/dL (8.5-10.5); Carbon Dioxide 24 mmol/L (22-29); Chloride 102 mmol/L (98-107); Globulin 2.2 g/dL (1.3-4.6); Glucose 174 mg/dL (65-115); Osmolality Calculated 290 mOsm/kg (285-295); Potassium 3.9 mmol/L (3.5-5.1); Sodium 137 mmol/L (136-145); Total Bilirubin 0.3 mg/dL (0.15-1.2)
[2024-01-06 13:06] VITALS: BP 96/51; PULSE 75; RESP 16; TEMP 36.6; O2SAT 94; BMI 20.9
[2024-01-06 15:05] VITALS: BP 137/61; PULSE 69; RESP 18; O2SAT 98
--- NOTE | 2024-01-06 15:06 | ED_ITS ---
HPI - GI Bleed 2 General: Chief complaint: GI Bleed Stated complaint: Blood in stools Time Seen by Provider: 01/06/24 14:43 Source: patient Mode of arrival: ambulatory Limitations: no limitations History of Present Illness: 78-year-old female states that last nigh t she noticed she had had some dark tarry stools it is continued today she states it has been black and tarry along with maroon. No history any upper GI bleeds. She does have a history of hemorrhoids. Had some mild weakness she denies any abdominal pain denies any fever she is on Plavix and aspirin. Associated symptoms: Denies abdominal pain, chills, fever(s), headache(s), nausea, rash or vomiting Review of Systems 2 Const: Reports: fatigue; Denies: fever(s) or chills ENMT: Denies: throat pain or dental pain Card: Denies: chest pain Resp: Denies: dyspnea GI: Reports: hematochezia; Denies: abdominal pain, nausea, vomiting or diarrhea Musc: Denies: neck pain or back pain Skin/Breast: Denies: rash Neuro: Denies: headache(s) PFSH ED 2 PFSH: Medical History Hypertension Depression Tobacco abuse Cigarette smoker Serum calcium elevated Non-ST elevation DE (NSTEMI) History of palpitations Breast cancer Surgical History History of total right knee replacement April [address]23 Dr. Child History of colonoscopy 1998 H/O mastectomy Left 2000 Family History Brother CAD (coronary artery disease) Social History Smoking and tobacco/nicotine status: current every day tobacco/nicotine user Alcohol intake: never Substance/Drug Use: never Adopted: No Household members: none Housing: House Marital status: / Highest education level completed: 8th Grade service: No Current occupational status: retired Pets and animals: Yes Current gender identity: Female Physical Exam 2 Const: COMMON NORMALS: patient oriented x3 HENMT: COMMON NORMALS: normocephalic and atraumatic HEAD & SCALP: n ormocephalic and atraumatic Neck/C-Spine: COMMON NORMALS: full ROM and supple Chest: COMMONS NORMALS: normal inspection of the chest Resp: COMMON NORMALS: normal respiratory effort, No retractions, No use of accessory muscles and clear to auscultation bilaterally AUSCULTATION: clear to auscultation bilaterally Cardio: COMMON NORMALS: regular rate, regular rhythm and No murmurs present (Cardio) RATE: regular rate RHYTHM: regular rhythm GI: COMMON NORMALS: Normal to inspection, nondistended, normoactive bowel sounds present, Soft to palpation, non-tender and no masses PALPATION: Yes Soft to palpation OTHER: Rectal exam shows dark tarry stool that is Hemoccult positive Extremity: COMMON NORMALS: normal to inspection and full ROM Neuro: COMMON NORMALS: patient oriented x3, moves all extremities and no focal motor deficits Psych: COMMON NORMALS: mental status grossly normal, Normal thought process present and cooperative THOUGHT PROCESS: Normal thought process present Skin: COMMON NORMALS: no rashes or lesions noted and no wounds GENERAL SKIN EXAM: no rashes or lesions noted Course 2 Vital Signs: Vital signs: Vital Signs Temperature 97.9 F 01/06/24 13:06 Pulse Rate 69 01/06/24 15:05 Respiratory Rate 18 01/06/24 15:05 Blood Pressure 137/61 01/06/24 15:05 Pulse Oximetry 98 01/06/24 15:05 Oxygen Delivery Me thod Room Air 01/06/24 15:05 MDM - GI Bleed Medical Decision Making Patient presents here with upper GI bleed. Rectal exam did show Hemoccult positive stools she is on Plavix and aspirin her vital signs here are normal hemoglobin is normal currently will admit to follow her hemoglobin I spoke to the hospitalist. Medical Records I reviewed the patient's medical records. Lab Data I reviewed the patient's lab results. 01/06/24 12:32 01/06/24 12:32 Laboratory Results WBC 6.63 10^3/uL (3.29-11.43) 01/06/24 12:32 RBC 3.63 10^6/uL (3.85-5.65) L 01/06/24 12:32 Hgb 11.60 g/dL (11.27-16.99) 01/06/24 12:32 Hct 35.0 % (36-47) L 01/06/24 12:32 MCV 96.4 fl (85-98) 01/06/24 12:32 MCH 32.0 pg (27-33) 01/06/24 12:32 MCHC 33.1 g/dL (30-55) 01/06/24 12:32 RDW 12.5 % (12.1-15.1) 01/06/24 12:32 Plt Count 164 10^3/cmm (157-399) 01/06/24 12:32 MPV 10.4 fL (7.4-10.4) 01/06/24 12:32 Neut % (Auto) 67.0 % 01/06/24 12:32 Lymph % (Auto) 27.6 % 01/06/24 12:32 [place] % (Auto) 4.2 % 01/06/24 12:32 Eos % (Auto) 0.3 % 01/06/24 12:32 Baso % (Auto) 0.6 % 01/06/24 12:32 Neut # (Auto) 4.44 10^3/uL (1.8-7.7) 01/06/24 12:32 Lymph # (Auto) 1.8 10^3/uL (0.8-4.8) 01/06/24 12:32 [place] # (Auto) 0.3 10^3/uL (0.2-0.9) 01/06/24 12:32 Eos # (Auto) 0.0 10^3/uL (0.0-0.8) 01/06/24 12:32 Baso # (Auto) 0.0 10^3/uL (0.0-0.1) 01/06/24 12:32 Nucleated RBC % (auto) 0 % 01/06/24 12:32 Nucleated RBCs # 0.0 /100WBC 01/06/24 12:32 PT 13.60 SECONDS (12.1-14.9) 01/06/24 12:32 INR 1.01 (0.8-1.2) 01/06/24 12:32 Sodium 137 mmol/L (136-145) 01/06/24 12:32 Potassium 3.9 mmol/L (3.5-5.1) 01/06/24 12:32 Chloride 102 mmol/L (98-107) 01/06/24 12:32 Carbon Dioxide 24 mmol/L (22-29) 01/06/24 12:32 Anion Gap 14.9 (5-19) 01/06/24 12:32 BUN 18 mg/dL (8-23) 01/06/24 12:32 Creatinine 0.8 mg/dL (0.5-0.9) 01/06/24 12:32 GFR Calculation Not Reportable 01/06/24 12:32 Glucose 174 mg/dL (65-115) H 01/06/24 12:32 Calculated Osmolality 290 mOsm/kg (285-295) 01/06/24 12:32 Calcium 8.9 mg/dL (8.5-10.5) 01/06/24 12:32 Total Bilirubin 0.3 mg/dL (0.15-1.2) 01/06/24 12:32 AST 20 U/L (0-32) 01/06/24 12:32 ALT 11 U/L (0-33) 01/06/24 12:32 Alkaline Phosphatase 70 U/L (35-105) 01/06/24 12:32 Total Protein 6.0 g/dL (6.6-8.7) L 01/06/24 12:32 Albumin 3.8 g/dL (3.5-5.2) 01/06/24 12:32 Globulin 2.2 g/dL (1.3-4.6) 01/06/24 12:32 No radiology studies performed this visit Discharge Plan Discharge Patient Disposition: Admitted As Inpatient Clinical Impression: Upper gastrointestinal hemorrhage Condition: Stable Prescriptions: No Action losartan 100 mg tablet 50 mg PO DAILY Qty: 90 3RF metoprolol tartrate 25 mg tablet 25 mg PO BID Qty: 180 1RF ferrous gluconate 324 mg (38 mg iron) tablet 324 mg PO DAILY Qty: 90 1RF hydrocortisone [Anusol-HC] 2.5 % cream with perineal applicator 1 applic OR QID PRN (Reason: hemorrhoids) Rx Instructions: may repeat in 10 days amlodipine 10 mg tablet 10 mg PO DAILY Qty: 90 3RF digoxin 125 mcg (0.125 mg) tablet 125 mcg PO DAILY Qty: 90 3RF nitroglycerin 0.4 mg tablet, sublingual 0.4 mg sublingual Q5M Qty: 25 2RF Rx Instructions: do not exceed 3 doses per episode atorvastatin 20 mg tablet 20 mg PO DAILY Qty: 90 3RF escitalopram oxalate 10 mg tablet 10 mg PO DAILY Qty: 90 1RF clopidogrel 75 mg tablet 75 mg PO DAILY Qty: 90 3RF aspirin [Enteric Coated Aspirin] 81 mg tablet,delayed release (DR/EC) 81 mg PO DAILY Qty: 90 0RF Women's 50 Plus Daily Formula 400 mcg-500 mg calcium-20 mcg Tablet 1 tab PO DAILY Probiotic 10 billion cell Capsule 10,000 mmu cells PO DAILY Referrals: Yehuda Reese DO [Primary Care Provider] - Coding Level of Care Code ED Ground Layer for Nisha Mcadams
[2024-01-06] MEDS: sodium chloride 0.9% 1,000 ML 999 ML IV (15:08)
[2024-01-06] MEDS: pantoprazole 40 mg SDV 80 MG IVP (15:08)
--- NOTE | 2024-01-06 15:14 | P.HP_ITS ---
Providers/Chief Complaint 2 Primary Care Provider: Yehuda Reese DO Chief Complaint: Blood in stools History of Present Illness Priscilla Taylor is a 78 year old female with history of mild, nonobstructive coronary disease, she was put on aspirin Plavix because of high troponin leakage otherwise there was no obstructive lesion on the angiogram noted by the cardiology, patient has had GI bleed in the past as well which was deemed secondary to hemorrhoids, presented today with chief complaint of melanotic stools. Patient stating that for last few days she has been noticing mixture of bright bleed per rectum and dark-colored stools she has not noticed hypotension, orthostatic syncope chest pain shortness of breath. No previous history of gastric ulcer, patient is scheduled for scope in February with Dr. Schmid. In the ER she had rectal bleed evident on KALANI. Dr. Velázquez will be consulted she will stay on clear liquid diet Review of Systems 2 Const: Denies: fever(s) Eyes: Denies: change in vision ENMT: Denies: throat pain Card: Denies: chest pain Medications/Allergies Home Medications Medication Instructions Recorded Confirmed Last Taken Type digoxin 125 mcg (0.125 mg) tablet 125 mcg PO DAILY #90 tabs 07/05/23 01/06/24 01/06/24 Rx atorvastatin 20 mg tablet 20 mg PO DAILY #90 tabs 09/05/23 01/06/24 01/06/24 Rx Lactobacillus acidophilus 10 10,000 mmu cells PO DAILY 09/10/23 01/06/24 01/05/24 History billion cell capsule (Probiotic) mccmuysn-tec-phgcy ac 400 1 tab PO DAILY 09/10/23 01/06/24 01/06/24 History mcg-calcium carb 500 mg-vit K1 20 mcg tablet (Women's 50 Plus Daily Formula) ferrous gluconate 324 mg (38 mg 324 mg PO DAILY #90 tabs 10/14/23 01/06/24 01/06/24 Rx iron) tablet metoprolol tartrate 25 mg tablet 25 mg PO BID #180 tabs 10/14/23 01/06/24 01/06/24 Rx clopidogrel 75 mg tablet 75 mg PO DAILY #90 tabs 12/11/23 01/06/24 01/06/24 Rx hydrocortisone 2.5 % topical cream 1 applic IN QID PRN hemorrhoids 12/12/23 01/06/24 Unknown History with perineal applicator (Anusol-HC) amlodipine 10 mg tablet 10 mg PO QAM 01/06/24 01/06/24 01/06/24 History aspirin 81 mg tablet,delayed 81 mg PO QAM 01/06/24 01/06/24 01/06/24 History release (Enteric Coated Aspirin) escitalopram oxalate 10 mg tablet 10 mg PO QPM mood 01/06/24 01/06/24 01/05/24 History losartan 50 mg tablet 50 mg PO QPM 01/06/24 01/06/24 01/05/24 History nitroglycerin 0.4 mg sublingual 0.4 mg sublingual Q5M PRN Chest 01/06/24 01/06/24 Unknown History tablet Pain Allergies Allergy/AdvReac Type Severity Reaction Status Date / Time No Known Allergies Allergy Verified 01/06/24 13:06 PFSH Acute 2 PFSH: Medical History Hypertension Depression Tobacco abuse Cigarette smoker Serum calcium elevated Non-ST elevation [place] (NSTEMI) History of palpitations Breast cancer Surgical History History of total right knee replacement April [address]23 Dr. Child History of colonoscopy 1998 H/O mastectomy Left 2000 Family History Brother CAD (coronary artery disease) Social History Smoking and tobacco/nicotine status: current every day tobacco/nicotine user Alcohol intake: never Substance/Drug Use: never Adopted: No Household members: none Housing: House Marital status: / Highest education level completed: 8th Grade service: No Current occupational status: retired Pets and animals: Yes Current gender identity: Female Vitals/I&O/Wt Last Vital Signs Temp 97.9 F 01/06/24 13:06 Pulse 69 01/06/24 15:05 Resp 18 01/06/24 15:05 BP 137/61 01/06/24 15:05 Pulse Ox 98 01/06/24 15:05 O2 Del Method Room Air 01/06/24 15:05 Weight last 48 hrs Weight 50.349 kg Physical Exam 2 Narrative: Patient is laying supine Hemodynamic stable Currently on room air Daughter at the bedside Abdomen soft Pleasant cooperative Nonfocal neuroexam No acute discomfort Data 01/06/24 12:32 01/06/24 12:32 A&P Assessment and plan (1) Upper gastrointestinal hemorrhage: (2) Hematochezia: (3) Anemia: Qualifiers: Anemia type: iron deficiency Iron deficiency anemia type: inadequate dietary iron intake Qualified Code(s): D50.8 - Other iron deficiency anemias Plan Hematochezia with melanotic stool No previous history of ulcer I do believe with combination of aspirin Plavix she might have developed gastric ulcer Will consult Dr. Schmid Will keep her on clear liquid diet for now N.p.o. after midnight Hold aspirin and Plavix she had nonobstructive coronary disease never had any stent placement No active chest pain or shortness of breath Is okay to hold dual antiplatelet therapy for now She is full code Watch H&H hemoglobin is stable She is hemodynamically stable Close monitoring of blood pressure, judicious use of hypertensive agent DVT prophylaxis SCDs N.p.o. after midnight Admission to [facility] Attestations 2 Medical Necessity Statement*: Anticipating discharge within 48 hours Diagnoses Upper gastrointestinal hemorrhage K92.2 Hematochezia K92.1 Iron deficiency anemia secondary to inadequate dietary iron intake D50.8 Anemia type: iron deficiency Iron deficiency anemia type: inadequate dietary iron intake
[2024-01-06 16:16] LABS: Iron 63 ug/dL (37-145); Percent Saturation 22.6 % (20-50); Total Iron Binding Capacity 278 mcg/dl; Unsaturated Iron Binding 215 ug/dL (112-347)
[2024-01-06 16:29] VITALS: BP 134/91; PULSE 72; RESP 16; O2SAT 98
[2024-01-06 16:58] VITALS: BMI 20.9
[2024-01-06] MEDS: sucralfate 1 gm/10 mL Oral Liq UDC PO ×2 (17:24→23:03)
[2024-01-06] MEDS: sodium chloride 0.9% 1,000 ML 75 ML IV (17:25)
[2024-01-06] MEDS: magnesium citrate Btl 296 mL PO (19:13)
[2024-01-07] VITALS (7 sets, daily range): BP systolic 107–138; BP diastolic 50–63; PULSE 70–89; RESP 16–18; TEMP 36.6–36.7; O2SAT 92–95; BMI 20.8
[2024-01-07] MEDS: pantoprazole 40 mg SDV IVP ×3 (05:10→17:42)
[2024-01-07] MEDS: sodium chloride 0.9% 1,000 ML 75 ML IV ×2 (05:11→20:52)
[2024-01-07 05:47] LABS: Basophils % 0.8 %; Eosinophils # 0.1 10^3/uL (0.0-0.8); Eosinophils % 2.4 %; Hematocrit 30.2 % (36-47); Lymphocytes # 1.5 10^3/uL (0.8-4.8); Lymphocytes % 29.1 %; Mean Corpuscular HGB Conc 33.1 g/dL (30-55); Mean Corpuscular Hemoglobin 31.8 pg (27-33); Mean Corpuscular Volume 96.2 fl (85-98); Mean Platelet Volume 10.5 fL (7.4-10.4); Monocytes # 0.3 10^3/uL (0.2-0.9); Monocytes % 6.6 %; Neutrophils # 3.04 10^3/uL (1.8-7.7); Neutrophils % 60.7 %; Nucleated Red Blood Cells % 0 %; Platelet Count 132 10^3/cmm (157-399); Red Blood Count 3.14 10^6/uL (3.85-5.65); Red Cell Distribution Width 12.5 % (12.1-15.1); White Blood Count 5.01 10^3/uL (3.29-11.43)
[2024-01-07 06:07] LABS: Anion Gap 12.8 (5-19); Blood Urea Nitrogen 11 mg/dL (8-23); Calcium 8.1 mg/dL (8.5-10.5); Carbon Dioxide 23 mmol/L (22-29); Chloride 113 mmol/L (98-107); Creatinine Clr Calc Pharmacy 44.6665; Glucose 84 mg/dL (65-115); Osmolality Calculated 299 mOsm/kg (285-295); Phosphorus 1.9 mg/dL (2.5-4.5); Potassium 3.8 mmol/L (3.5-5.1); Sodium 145 mmol/L (136-145)
[2024-01-07] MEDS: amlodipine 10 mg Tablet PO (08:06)
[2024-01-07] MEDS: sucralfate 1 gm/10 mL Oral Liq UDC PO ×3 (08:06→23:04)
--- NOTE | 2024-01-07 09:27 | PC.CHAP ---
Pastoral Care Encounter/Spiritual Assessment Type of Contact [] Declined gardening manager visit [] Patient/Family/Request visit [] Outpatient visit [] Follow-up visit [] Physician referral [] Code/Alert [x] Routine visit [] Staff referral [] Actively dying [] Patient sleeping [x] Family support [] [] Out of room [] Palliative care [] [] Receiving care in room [] Pre-surgical visit [] Trauma [] Long length of stay [] ICU visit [] Other: Relational/Emotional Strength [x] Patient feels connected with others/family/visitors/staff [] Distress [] Loneliness/isolation [] Abandonment Spirituality of Patient [x] Person of Julieth [] Attends Confucianism of their Julieth [x] Believes in Prayer [] Reads Bible or Yarsani materials [] There are Spiritual issues to be addressed Pensionholder Information Clerk Interventions [x] Prayer [] Active listening [] Non-anxious presence [x] Spiritual/emotional support [] Crisis/trauma care [] Spiritual counseling [] Bereavement support [] Provided bereavement packet [] Provided Bible/devotional materials [] Provided toy/stuffed animal, coloring book to patient or family member [] Provided Communion [] Anointing/Hayden [] Salvation [x] Completed spiritual assessment [] Other: Impact on Illness or Injury [] Angry [] Fearful [] Anxious [] Often cries [] Exhaustion [] Unable to work [] Unable to attend yarsanism [] Unable to walk/stand [] Unable to read [] Unable to drive [] Unable to eat/drink [] Unable to sleep [] Unable to be with family [] Patient intubated [] Other: Summary Time spent with patient 5 min
[2024-01-07] MEDS: morphine IR 15 mg Tablet PO ×2 (11:29→23:04)
--- NOTE | 2024-01-07 13:05 | P.PN_ITS ---
Subjective 2 Subjective: Seen this morning. States she has had blood in stool with each bowel movement overnight. She was given bowel prep. Awaiting EGD today. Vitals/I&O/Wt Last Vital Signs Temp 98.1 F 01/07/24 11:10 Pulse 86 01/07/24 11:10 Resp 18 01/07/24 11:29 BP 125/50 01/07/24 11:10 Pulse Ox 95 01/07/24 11:29 O2 Del Method Room Air 01/07/24 11:10 01/06/24 01/07/24 01/07/24 22:59 06:59 14:59 Intake Total 1240 / 1240 882.5 / 2122.5 120 / 120 Output Total 400 / 400 Balance 1240 / 1240 882.5 / 2122.5 -280 / -280 Weight last 48 hrs Weight 50.122 kg Weight 50.349 kg Weight 50.349 kg Physical Exam 2 Narrative: Patient is laying supine Hemodynamic stable Currently on room air Daughter at the bedside Abdomen soft Pleasant cooperative Nonfocal neuroexam No acute discomfort Data 01/07/24 05:27 01/07/24 05:27 A&P Assessment and plan (1) Upper gastrointestinal hemorrhage: (2) Hematochezia: (3) Anemia: Qualifiers: Anemia type: iron deficiency Iron deficiency anemia type: inadequate dietary iron intake Qualified Code(s): D50.8 - Other iron deficiency anemias Plan Hematochezia with melanotic stool No previous history of ulcer I do believe with combination of aspirin Plavix she might have developed gastric ulcer Will consult Dr. Schmid Will keep her on clear liquid diet for now N.p.o. after midnight Hold aspirin and Plavix she had nonobstructive coronary disease never had any stent placement No active chest pain or shortness of breath Is okay to hold dual antiplatelet therapy for now She is full code Watch H&H hemoglobin is stable She is hemodynamically stable Close monitoring of blood pressure, judicious use of hypertensive agent Awaiting procedure today. DVT prophylaxis SCDs N.p.o. after midnight Admission to [facility] Attestations 2 Medical Necessity Statement*: Anticipating discharge within 48 hours Diagnoses Upper gastrointestinal hemorrhage K92.2 Hematochezia K92.1 Iron deficiency anemia secondary to inadequate dietary iron intake D50.8 Anemia type: iron deficiency Iron deficiency anemia type: inadequate dietary iron intake
--- NOTE | 2024-01-07 13:42 | P.CONIM_ITS ---
Providers/Reason For Consult 2 Consulting Physician/Specialty*: Dr. Govind Schmid, /General surgery Reason for Consult*: GI bleed Attending Physician: Mecca Juárez MD Primary Care Provider: Yehuda Reese DO History of Present Illness History of Present Illness Priscilla Taylor is a 78 year old female Was regularly scheduled for colonoscopy due to hematochezia possibly attributed to hemorrhoids, presents to the hospital with new onset melena. She denies any abdominal pain, nausea, emesis, diarrhea, constipation. Review of Systems 2 General: Reports: 10 or more systems reviewed and unremarkable except in HPI and below Medications/Allergies Home Medications Medication Instructions Recorded Confirmed Last Taken Type digoxin 125 mcg (0.125 mg) tablet 125 mcg PO DAILY #90 tabs 07/05/23 01/06/24 01/06/24 Rx atorvastatin 20 mg tablet 20 mg PO DAILY #90 tabs 09/05/23 01/06/24 01/06/24 Rx Lactobacillus acidophilus 10 10,000 mmu cells PO DAILY 09/10/23 01/06/24 01/05/24 History billion cell capsule (Probiotic) spatdxnf-wao-pkpev ac 400 1 tab PO DAILY 09/10/23 01/06/24 01/06/24 History mcg-calcium carb 500 mg-vit K1 20 mcg tablet (Women's 50 Plus Daily Formula) ferrous gluconate 324 mg (38 mg 324 mg PO DAILY #90 tabs 10/14/23 01/06/24 01/06/24 Rx iron) tablet metoprolol tartrate 25 mg tablet 25 mg PO BID #180 tabs 10/14/23 01/06/24 01/06/24 Rx clopidogrel 75 mg tablet 75 mg PO DAILY #90 tabs 12/11/23 01/06/24 01/06/24 Rx hydrocortisone 2.5 % topical cream 1 applic HI QID PRN hemorrhoids 12/12/23 01/06/24 Unknown History with perineal applicator (Anusol-HC) amlodipine 10 mg tablet 10 mg PO QAM 01/06/24 01/06/24 01/06/24 History aspirin 81 mg tablet,delayed 81 mg PO QAM 01/06/24 01/06/24 01/06/24 History release (Enteric Coated Aspirin) escitalopram oxalate 10 mg tablet 10 mg PO QPM mood 01/06/24 01/06/24 01/05/24 History losartan 50 mg tablet 50 mg PO QPM 01/06/24 01/06/24 01/05/24 History nitroglycerin 0.4 mg sublingual 0.4 mg sublingual Q5M PRN Chest 01/06/24 01/06/24 Unknown History tablet Pain Allergies Allergy/AdvReac Type Severity Reaction Status Date / Time No Known Allergies Allergy Verified 01/06/24 13:06 Current Medications Generic Name Dose Route Start Last Admin Trade Name Freq PRN Reason Stop Dose Admin Amlodipine Besylate 10 mg 01/07/24 09:00 01/07/24 08:06 Amlodipine 10 Mg Tablet PO 10 mg DAILY TRUONG Administration Sodium Chloride 1,000 mls @ 75 mls/hr 01/06/24 16:56 01/07/24 05:11 Sodium Chloride 0.9% IV 75 mls/hr .[id number] TRUONG Administration Morphine Sulfate 15 mg 01/06/24 16:56 01/07/24 11:29 Morphine Ir 15 Mg Tablet PO 15 mg Q6H PRN Administration MODERATE PAIN Pantoprazole Sodium 40 mg 01/06/24 18:00 01/07/24 08:06 Pantoprazole 40 Mg Sdv IVP 40 mg BID TRUONG Administration Sucralfate 1 gm 01/06/24 16:56 01/07/24 08:06 Sucralfate 1 Gm/10 Ml Oral Liq Udc PO 1 gm Q8H TRUONG Administration PFSH Acute 2 PFSH: Medical History Hypertension Depression Tobacco abuse Cigarette smoker Serum calcium elevated Non-ST elevation [place] (NSTEMI) History of palpitations Breast cancer Surgical History History of total right knee replacement April [address]23 Dr. Child History of colonoscopy 1998 H/O mastectomy Left 2000 Family History Brother CAD (coronary artery disease) Social History Smoking and tobacco/nicotine status: current every day tobacco/nicotine user Alcohol intake: never Substance/Drug Use: never Adopted: No Household members: none Housing: House Marital status: / Highest education level completed: 8th Grade service: No Current occupational status: retired Pets and animals: Yes Current gender identity: Female Vitals/I&O/Wt Last Vital Signs Temp 98.1 F 01/07/24 11:10 Pulse 86 01/07/24 11:10 Resp 18 01/07/24 11:29 BP 125/50 01/07/24 11:10 Pulse Ox 95 01/07/24 11:29 O2 Del Method Room Air 01/07/24 11:10 01/06/24 01/07/24 01/07/24 22:59 06:59 14:59 Intake Total 1240 / 1240 882.5 / 2122.5 120 / 120 Output Total 400 / 400 Balance 1240 / 1240 882.5 / 2122.5 -280 / -280 Weight last 48 hrs Weight 110 lb 8 oz Weight 111 lb Weight 111 lb Physical Exam 2 Narrative: General : Patient is well developed , no acute distress, oriented x3 Head : Normal cephalic, a-traumatic. Ears : Pinnae and external canal are normal. Hearing is normal. Eyes : PERRLA, Sclera and injection are normal. No conjunctival discharge. Nose : Mucous membranes are without erythema. Throat : buccal mucosa is normal, gums are without significant recession or hypertrophy. Lungs : Equal chest rise bilaterally, no use of accessory muscles, trachea is midline. Cor : Rate and rhythm are normal. Abdomen : Soft, ND, NT, no g/r/m Extremities : No edema, no cyanosis or clubbing, dorsalis pedis pulses are present bilaterally, non-tender to palpation of calves. Upper extremities are normal bilaterally. Back : non-tender to palpation, no CVA tenderness. Neuro : CN II - XII intact, Upper and lower extremities have equal and full strength Data 01/08/24 04:41 01/08/24 04:41 A&P Assessment and plan (1) Hematochezia: (2) Upper gastrointestinal hemorrhage: Plan EGD Colonoscopy The risks and benefits of the procedure, including bleeding, infection, intestinal perforation requiring surgery, missed lesion were explained to the patient. The patient is understanding of the risks and wishes to proceed. Coding Level of Care Code 60276 Diagnoses Hematochezia K92.1 Upper gastrointestinal hemorrhage K92.2
[2024-01-07] MEDS: phosphorus 250 mg Tablet PO (17:42)
[2024-01-08] VITALS (10 sets, daily range): BP systolic 103–127; BP diastolic 43–62; PULSE 80–95; RESP 16–18; TEMP 36.3–37.6; O2SAT 90–94
[2024-01-08 05:01] LABS: Basophils % 0.7 %; Eosinophils # 0.1 10^3/uL (0.0-0.8); Eosinophils % 2.3 %; Hematocrit 29.8 % (36-47); Lymphocytes # 1.6 10^3/uL (0.8-4.8); Lymphocytes % 25.7 %; Mean Corpuscular HGB Conc 32.2 g/dL (30-55); Mean Corpuscular Hemoglobin 31.3 pg (27-33); Mean Corpuscular Volume 97.1 fl (85-98); Mean Platelet Volume 9.9 fL (7.4-10.4); Monocytes # 0.4 10^3/uL (0.2-0.9); Monocytes % 6.1 %; Neutrophils # 3.91 10^3/uL (1.8-7.7); Nucleated Red Blood Cells % 0 %; Platelet Count 151 10^3/cmm (157-399); Red Blood Count 3.07 10^6/uL (3.85-5.65); Red Cell Distribution Width 12.4 % (12.1-15.1); White Blood Count 6.02 10^3/uL (3.29-11.43)
[2024-01-08 05:30] LABS: Anion Gap 11.7 (5-19); Blood Urea Nitrogen 6 mg/dL (8-23); Carbon Dioxide 24 mmol/L (22-29); Chloride 111 mmol/L (98-107); Creatinine Clr Calc Pharmacy 45.1145; Glucose 81 mg/dL (65-115); Magnesium 2.1 mg/dL (1.7-2.3); Osmolality Calculated 293 mOsm/kg (285-295); Potassium 3.7 mmol/L (3.5-5.1); Sodium 143 mmol/L (136-145)
[2024-01-08] MEDS: sodium chloride 0.9% 1,000 ML 75 ML IV (09:33)
[2024-01-08] MEDS: pantoprazole 40 mg SDV IVP ×2 (09:34→17:16)
--- NOTE | 2024-01-08 09:55 | P.PN_ITS ---
Subjective 2 Subjective: seen this morning patient states her hematochezia has resolved Vitals/I&O/Wt Last Vital Signs Temp 97.9 F 01/08/24 07:48 Pulse 86 01/08/24 07:48 Resp 18 01/08/24 07:48 BP 121/62 01/08/24 07:48 Pulse Ox 91 01/08/24 07:48 O2 Del Method Room Air 01/08/24 07:48 01/07/24 01/08/24 01/08/24 22:59 06:59 14:59 Intake Total 1680 / 1800 951.25 / 951.25 Output Total 1250 / 1650 Balance 430 / 150 951.25 / 951.25 Weight last 48 hrs Weight 51.573 kg Weight 50.122 kg Weight 50.349 kg Weight 50.349 kg Physical Exam 2 Narrative: Patient is laying supine Hemodynamic stable Currently on room air Daughter at the bedside Abdomen soft Pleasant cooperative Nonfocal neuroexam No acute discomfort Data 01/08/24 04:41 01/08/24 04:41 A&P Assessment and plan (1) Upper gastrointestinal hemorrhage: (2) Hematochezia: (3) Anemia: Qualifiers: Anemia type: iron deficiency Iron deficiency anemia type: inadequate dietary iron intake Qualified Code(s): D50.8 - Other iron deficiency anemias Plan Hematochezia with melanotic stool No previous history of ulcer I do believe with combination of aspirin Plavix she might have developed gastric ulcer Will consult Dr. Schmid Will keep her on clear liquid diet for now N.p.o. after midnight Hold aspirin and Plavix she had nonobstructive coronary disease never had any stent placement No active chest pain or shortness of breath Is okay to hold dual antiplatelet therapy for now She is full code Watch H&H hemoglobin is stable She is hemodynamically stable Close monitoring of blood pressure, judicious use of hypertensive agent Awaiting procedure today. DVT prophylaxis SCDs Son updated at bedside. Attestations 2 Medical Necessity Statement*: Anticipating discharge within 48 hours Diagnoses Upper gastrointestinal hemorrhage K92.2 Hematochezia K92.1 Iron deficiency anemia secondary to inadequate dietary iron intake D50.8 Anemia type: iron deficiency Iron deficiency anemia type: inadequate dietary iron intake
[2024-01-08] MEDS: morphine IR 15 mg Tablet PO (11:29)
--- NOTE | 2024-01-08 12:14 | PC.NURSE ---
Off the floor for procedure at 1215.
[2024-01-08] MEDS: sodium chloride 0.9% 1,000 ML 30 ML IV (12:40)
--- NOTE | 2024-01-08 13:09 | P.ANESASSM_ITS ---
Pre-Anesthetic Assessment Height/Weight: Height 1.55 m Weight 51.573 kg Temp Pulse Resp BP Pulse Ox O2 Del Method 99.6 F 95 18 127/59 92 Room Air 01/08/24 12:32 01/08/24 12:32 01/08/24 12:32 01/08/24 12:32 01/08/24 12:32 01/08/24 12:32 Preop Diagnosis: GI bleed anemia Operation Date: 01/08/24 13:00 Proposed Procedures p EGD(Not Applicable) - Govind Schmid DO s Colonoscopy(Not Applicable) - Govind Schmid DO Familial anesthetic complications: none Was Beta Elva taken within 24 hours: Yes Was Clonidine taken within 24 hours: N/A Last intake: Intake Last Liquid Date 01/07/24 Last Liquid Time 11:00 Last Solid Date 01/06/24 Last Solid Time 09:00 Social Tobacco .5 to 1 ppd pack(s) per day 50 pack years Exam alert, oriented x 3, clear to auscultation bilaterally and regular rate & rhythm Airway Submandibular: within normal limits Cervical ROM: within normal limits Mallampati: Class I Dentition: false Comments: Comments: upper and lower History/ROS No significant history except as noted Pulmonary Chronic Obstructive Pulmonary Disease and Shortness of Breath ABnormal pet scan lung cancer not stagged CV/HEM Atrial Fibrillation, Unstable Angina, Coronary Artery Disease, Hypertension and Myocardial Infarction Nonstemi aug 2023 None reported Hepatic None reported GI Gastroesophageal Reflux Disease Metabolic None reported Musc/skel Lower Back Pain and Osteoarthritis/DJD Neuropsych None reported Anesthetic Plan ASA status: 3 Medications/Allergies Home Medications Medication Instructions Recorded Confirmed Last Taken Type digoxin 125 mcg (0.125 mg) tablet 125 mcg PO DAILY #90 tabs 07/05/23 01/06/24 01/06/24 Rx atorvastatin 20 mg tablet 20 mg PO DAILY #90 tabs 09/05/23 01/06/24 01/06/24 Rx Lactobacillus acidophilus 10 10,000 mmu cells PO DAILY 09/10/23 01/06/24 01/05/24 History billion cell capsule (Probiotic) clyvhgwo-nkz-svsqd ac 400 1 tab PO DAILY 09/10/23 01/06/24 01/06/24 History mcg-calcium carb 500 mg-vit K1 20 mcg tablet (Women's 50 Plus Daily Formula) ferrous gluconate 324 mg (38 mg 324 mg PO DAILY #90 tabs 10/14/23 01/06/24 01/06/24 Rx iron) tablet metoprolol tartrate 25 mg tablet 25 mg PO BID #180 tabs 10/14/23 01/06/24 01/06/24 Rx clopidogrel 75 mg tablet 75 mg PO DAILY #90 tabs 12/11/23 01/06/24 01/06/24 Rx hydrocortisone 2.5 % topical cream 1 applic ND QID PRN hemorrhoids 12/12/23 01/06/24 Unknown History with perineal applicator (Anusol-HC) amlodipine 10 mg tablet 10 mg PO QAM 01/06/24 01/06/24 01/06/24 History aspirin 81 mg tablet,delayed 81 mg PO QAM 01/06/24 01/06/24 01/06/24 History release (Enteric Coated Aspirin) escitalopram oxalate 10 mg tablet 10 mg PO QPM mood 01/06/24 01/06/24 01/05/24 History losartan 50 mg tablet 50 mg PO QPM 01/06/24 01/06/24 01/05/24 History nitroglycerin 0.4 mg sublingual 0.4 mg sublingual Q5M PRN Chest 01/06/24 01/06/24 Unknown History tablet Pain Allergies Allergy/AdvReac Type Severity Reaction Status Date / Time No Known Allergies Allergy Verified 01/06/24 13:06 Current Medications Generic Name Dose Route Start Last Admin Trade Name Freq PRN Reason Stop Dose Admin Amlodipine Besylate 10 mg 01/07/24 09:00 01/08/24 09:03 Amlodipine 10 Mg Tablet PO Not Given DAILY TRUONG Sodium Chloride 1,000 mls @ 75 mls/hr 01/06/24 16:56 01/08/24 09:33 Sodium Chloride 0.9% IV 75 mls/hr .[id number] TRUONG Administration Sodium Chloride 1,000 mls @ 30 mls/hr 01/08/24 12:30 01/08/24 12:40 Sodium Chloride 0.9% IV 01/09/24 12:29 30 mls/hr .Q24H TRUONG Administration Morphine Sulfate 15 mg 01/06/24 16:56 01/08/24 11:29 Morphine Ir 15 Mg Tablet PO 15 mg Q6H PRN Administration MODERATE PAIN Pantoprazole Sodium 40 mg 01/06/24 18:00 01/08/24 09:34 Pantoprazole 40 Mg Sdv IVP 40 mg BID TRUONG Administration Sucralfate 1 gm 01/06/24 16:56 01/08/24 09:03 Sucralfate 1 Gm/10 Ml Oral Liq Udc PO Not Given Q8H TRUONG PFSH Anesthesia Medical History Hypertension Depression Tobacco abuse Cigarette smoker Serum calcium elevated Non-ST elevation [place] (NSTEMI) History of palpitations Breast cancer Surgical History History of total right knee replacement April [address]23 Dr. Child History of colonoscopy 1998 H/O mastectomy Left 2000 Family History Brother CAD (coronary artery disease) Social History Smoking and tobacco/nicotine status: current every day tobacco/nicotine user Alcohol intake: never Substance/Drug Use: never Adopted: No Household members: none Housing: House Marital status: / Highest education level completed: 8th Grade service: No Current occupational status: retired Pets and animals: Yes Current gender identity: Female Data Anesthesia 01/08/24 04:41 01/08/24 04:41 Short CBC 01/07/24 01/08/24 Range/Units 05:27 04:41 WBC 5.01 6.02 (3.29-11.43) 10^3/uL Hgb 10.00 L 9.60 L (11.27-16.99) g/dL Hct 30.2 L 29.8 L (36-47) % MCV 96.2 97.1 (85-98) fl Plt Count 132 L 151 L (157-399) 10^3/cmm Neut % (Auto) 60.7 65.0 % Neut # (Auto) 3.04 3.91 (1.8-7.7) 10^3/uL BMP 01/07/24 01/08/24 05:27 04:41 Sodium 145 143 Potassium 3.8 3.7 Chloride 113 H 111 H Carbon Dioxide 23 24 BUN 11 6 L Creatinine 0.6 0.5 Glucose 84 81 Calcium 8.1 L 8.0 L Blood Bank 01/06/24 15:07 Blood Type A Positive Rho(D) Type Rh positive Antibody Screen Negative Cardiac Studies: 2 Echocardiogram 09/03/23 Cardiac Event Monitor 09/12/23
--- NOTE | 2024-01-08 13:27 | P.PN_ITS ---
Vitals/I&O/Wt Last Vital Signs Temp 99.6 F 01/08/24 12:32 Pulse 95 01/08/24 12:32 Resp 18 01/08/24 12:32 BP 127/59 01/08/24 12:32 Pulse Ox 92 01/08/24 12:32 O2 Del Method Room Air 01/08/24 12:32 01/07/24 01/08/24 01/08/24 22:59 06:59 14:59 Intake Total 1680 / 1800 951.25 / 951.25 Output Total 1250 / 1650 Balance 430 / 150 951.25 / 951.25 Weight last 48 hrs Weight 113 lb 11.2 oz Weight 110 lb 8 oz Weight 111 lb Data 01/08/24 04:41 01/08/24 04:41 A&P Assessment and plan (1) Hematochezia: (2) Upper gastrointestinal hemorrhage: Plan EGD Colonoscopy The risks and benefits of the procedure, including bleeding, infection, intestinal perforation requiring surgery, missed lesion were explained to the patient. The patient is understanding of the risks and wishes to proceed. Attestations 2 Medical Necessity Statement*: Per primary Coding Level of Care Code Acute Code for Chg Fwd Diagnoses Hematochezia K92.1 Upper gastrointestinal hemorrhage K92.2
--- NOTE | 2024-01-08 14:40 | PC.NURSE ---
Pt back from procedure. Resting in bed comfortable. Call light in reach.
--- NOTE | 2024-01-08 15:28 | ANE.PACU2 ---
Inpatient post-anesthesia follow up: Airway intact: Yes Vital signs: Temperature 97.4 F Pulse Rate 84 Respiratory Rate 18 Blood Pressure 119/54 Pulse Oximetry 92 Oxygen Delivery Me thod Room Air Oxygen Flow Rate Fraction of Inspir ed Oxygen Hydration adequate: Yes Nausea and vomiting: No Pain level: 2 Mental status: Baseline
--- NOTE | 2024-01-08 17:58 | P.DS_ITS ---
Discharge Providers Date of Admission: 01/06/24 15:04 Date of Discharge: January 08, 2024 Attending Provider at Admission: Mecca Juárez MD Attending Provider at Discharge: Mecca Juárez MD Primary Care Provider: Yehuda Reese DO Diagnoses at Discharge Discharge Diagnosis (1) Hematochezia: Status: Resolved (2) Upper gastrointestinal hemorrhage: Status: Resolved Reason for Visit Reason for Visit: Blood in stools Hospital Course Hospital Course Admitted for hematochezia with melanotic stool. Patient was on aspirin and Plavix for recently diagnosed [place]A. Patient did not receive any stents at her previous hospitalization. It was reasonable to hold dual antiplatelet therapy at this time. Cardiology was also notified. Patient underwent EGD and colonoscopy and was recommended double-balloon endoscopy at this point however we do not have gastroenterology and capability of performing the procedure at our hospital. Transferring patient to higher level of care was attempted however there was no bed available at most hospitals that were called. Did shared decision-making with the patient who opted to follow-up as an outpatient as she stated that she does have episodic melanotic stools which go away on their own and at this time in the hospital as well the melanotic stools have resolved at this point. She was told to come back to the ER if she continues to experience the above. She was referred to gastroenterology at discharge. Family present at bedside who agreed with the above plan. Patient asked to follow-up with her primary care doctor and gastroenterology outpatient. Patient did not receive any blood transfusion during hospital stay. Hemoglobin remained stable. She was given a CBC prescription for repeat outpatient at discharge. Physical Exam Narrative: Patient is laying supine Hemodynamic stable Currently on room air Daughter at the bedside Abdomen soft Pleasant cooperative Nonfocal neuroexam No acute discomfort Discharge Data Studies Completed and Pending Pending at discharge Category Date Time Status Complete Blood Count w/Auto AM LABS Lab 01/09/24 04:00 Ordered Pathology: Surgical [PTH] Routine Pth 01/08/24 13:51 Received Laboratory Results WBC 6.02 10^3/uL (3.29-11.43) 01/08/24 04:41 RBC 3.07 10^6/uL (3.85-5.65) L 01/08/24 04:41 Hgb 9.60 g/dL (11.27-16.99) L 01/08/24 04:41 Hct 29.8 % (36-47) L 01/08/24 04:41 MCV 97.1 fl (85-98) 01/08/24 04:41 MCH 31.3 pg (27-33) 01/08/24 04:41 MCHC 32.2 g/dL (30-55) 01/08/24 04:41 RDW 12.4 % (12.1-15.1) 01/08/24 04:41 Plt Count 151 10^3/cmm (157-399) L 01/08/24 04:41 MPV 9.9 fL (7.4-10.4) 01/08/24 04:41 Neut % (Auto) 65.0 % 01/08/24 04:41 Lymph % (Auto) 25.7 % 01/08/24 04:41 [place] % (Auto) 6.1 % 01/08/24 04:41 Eos % (Auto) 2.3 % 01/08/24 04:41 Baso % (Auto) 0.7 % 01/08/24 04:41 Neut # (Auto) 3.91 10^3/uL (1.8-7.7) 01/08/24 04:41 Lymph # (Auto) 1.6 10^3/uL (0.8-4.8) 01/08/24 04:41 [place] # (Auto) 0.4 10^3/uL (0.2-0.9) 01/08/24 04:41 Eos # (Auto) 0.1 10^3/uL (0.0-0.8) 01/08/24 04:41 Baso # (Auto) 0.0 10^3/uL (0.0-0.1) 01/08/24 04:41 Nucleated RBC % (auto) 0 % 01/08/24 04:41 Nucleated RBCs # 0.0 /100WBC 01/08/24 04:41 PT 13.60 SECONDS (12.1-14.9) 01/06/24 12:32 INR 1.01 (0.8-1.2) 01/06/24 12:32 Sodium 143 mmol/L (136-145) 01/08/24 04:41 Potassium 3.7 mmol/L (3.5-5.1) 01/08/24 04:41 Chloride 111 mmol/L (98-107) H 01/08/24 04:41 Carbon Dioxide 24 mmol/L (22-29) 01/08/24 04:41 Anion Gap 11.7 (5-19) 01/08/24 04:41 BUN 6 mg/dL (8-23) L 01/08/24 04:41 Creatinine 0.5 mg/dL (0.5-0.9) 01/08/24 04:41 GFR Calculation Not Reportable 01/08/24 04:41 Glucose 81 mg/dL (65-115) 01/08/24 04:41 Calculated Osmolality 293 mOsm/kg (285-295) 01/08/24 04:41 Calcium 8.0 mg/dL (8.5-10.5) L 01/08/24 04:41 Phosphorus 1.9 mg/dL (2.5-4.5) L 01/07/24 05:27 Magnesium 2.1 mg/dL (1.7-2.3) 01/08/24 04:41 Iron 63 ug/dL (37-145) 01/06/24 12:32 TIBC 278 mcg/dl 01/06/24 12:32 % Saturation 22.6 % (20-50) 01/06/24 12:32 Unsat Iron Binding 215 ug/dL (112-347) 01/06/24 12:32 Total Bilirubin 0.3 mg/dL (0.15-1.2) 01/06/24 12:32 AST 20 U/L (0-32) 01/06/24 12:32 ALT 11 U/L (0-33) 01/06/24 12:32 Alkaline Phosphatase 70 U/L (35-105) 01/06/24 12:32 Total Protein 6.0 g/dL (6.6-8.7) L 01/06/24 12:32 Albumin 3.8 g/dL (3.5-5.2) 01/06/24 12:32 Globulin 2.2 g/dL (1.3-4.6) 01/06/24 12:32 Blood Type A Positive 01/06/24 15:07 Rho(D) Type Rh positive 01/06/24 15:07 Antibody Screen Negative 01/06/24 15:07 Vitals Last Vital Signs Temp 97.4 F L 01/08/24 14:02 Pulse 83 01/08/24 16:03 Resp 18 01/08/24 16:03 BP 119/54 01/08/24 14:22 Pulse Ox 94 01/08/24 16:03 O2 Del Method Room Air 01/08/24 16:03 Discharge Plan Discharge Patient Disposition: Home Condition: Stable Prescriptions: New sucralfate 1 gram tablet 1 g PO BID 56 Days Qty: 112 0RF Protonix 40 mg tablet,delayed release (DR/EC) 40 mg PO BID Qty: 60 0RF Continued ferrous gluconate 324 mg (38 mg iron) tablet 324 mg PO DAILY Qty: 90 1RF hydrocortisone [Anusol-HC] 2.5 % cream with perineal applicator 1 applic UT QID PRN (Reason: hemorrhoids) Rx Instructions: may repeat in 10 days digoxin 125 mcg (0.125 mg) tablet 125 mcg PO DAILY Qty: 90 3RF atorvastatin 20 mg tablet 20 mg PO DAILY Qty: 90 3RF amlodipine 10 mg tablet 10 mg PO QAM nitroglycerin 0.4 mg tablet, sublingual 0.4 mg sublingual Q5M PRN (Reason: Chest Pain) Rx Instructions: do not exceed 3 doses per episode escitalopram oxalate 10 mg tablet 10 mg PO QPM Women's 50 Plus Daily Formula 400 mcg-500 mg calcium-20 mcg Tablet 1 tab PO DAILY Probiotic 10 billion cell Capsule 10,000 mmu cells PO DAILY Held losartan 50 mg tablet 50 mg PO QPM Hold Instructions: till seen by pcp Discontinued clopidogrel 75 mg tablet 75 mg PO DAILY Qty: 90 3RF aspirin [Enteric Coated Aspirin] 81 mg tablet,delayed release (DR/EC) 81 mg PO QAM No Action metoprolol tartrate 25 mg tablet 25 mg PO BID Qty: 180 1RF Discharge Orders: Discharge Order (Routine); Ordered 01/08/24 Ordered By: Mecca Juárez Other Ambulatory Orders: Complete Blood Count w/Auto (Routine) Timeframe: 3 Days Location: Determined by Patient Ordered By: Mecca Juárez Referrals: Govind Schmid DO [Physician] - 01/20/24 8:55 am Foster Angel MD [Referring] - 1-3 days (Small capsule endoscopy required We have notified your physician's clinic of the need for a follow-up appointment to be scheduled. If you have not heard from them within the next 2 business days, please call them directly. ) Yehuda Reese F, DO [Primary Care Provider] - 7-10 days (We have notified [facility] of the need for a follow-up appointment to be scheduled. If you have not heard from them within the next 2 business days, please call them directly. ) Discharge Diet: Cardiac Discharge Activity: Resume usual activity Patient Instructions: Sucralfate (By mouth) (Carafate), Pantoprazole (By mouth), GI Discharge Instructions, Opioid Safety Activity Restrictions/Additional Instructions: Please return to ER should you have any other episode of blood in stool, dark stools. If you feel dizzy or lightheaded, please get evaluated. Please recheck labs as directed. Referral has been placed for gasteroenterology. You will need capsule endoscopy as outpatient. Discharge Attestations Time Spent in Discharge Care*: greater than 30 min Quality Metrics Clinical Quality Measures [ No reported AMI, CVA or VTE this stay] Coding Level of Care Code Acute Code for Chg Fwd Diagnoses Hematochezia K92.1 Upper gastrointestinal hemorrhage K92.2
--- NOTE | 2024-01-08 18:15 | PC.NURSE ---
Discharge Note Patient discharged to home via private vehicle accompanied by daughter. Discharge instructions reviewed with patient and/or inside sales account representative. Mobile pharmacy medications and/or prescriptions provided. Belongings/home medications returned.
== END 2024-01-08 19:07 | disposition home or self-care (01) ==
LOC: ER 15:23 → MEDSURG 16:30
PROVIDERS: Internal Medicine; Surgery; Admitting Provider Internal Medicine; Emergency Provider Emergency Medicine; PCP Family Medicine; Visit Provider Internal Medicine
PROC: 0DJ08ZZ Inspection of Upper Intestinal Tract, Via Natural or Artificial Opening Endoscopic (ICD-10-PCS; CPT 43235; principal; 2024-01-08 13:00)
PROC: 0DJD8ZZ Inspection of Lower Intestinal Tract, Via Natural or Artificial Opening Endoscopic (ICD-10-PCS; CPT 45378; 2024-01-08 13:00)
DX: K92.1 Melena (principal); K29.50 Unspecified chronic gastritis without bleeding; F17.200 Nicotine dependence, unspecified, uncomplicated; J44.9 Chronic obstructive pulmonary disease, unspecified; I48.91 Unspecified atrial fibrillation; I25.10 Atherosclerotic heart disease of native coronary artery without angina pectoris; I10 Essential (primary) hypertension; I25.2 Old myocardial infarction; K21.9 Gastro-esophageal reflux disease without esophagitis; Z85.3 Personal history of malignant neoplasm of breast; D50.8 Other iron deficiency anemias
CPT/HCPCS: 36415; 43239; 45378; 80048; 80053; 83540; 83550; 83735; 84100; 85025; 85610; 86850; 86900; 88305; 88342; 96374; 99285; C9113; G0378; J2704; J7030

== ENCOUNTER → 2024-02-03 10:41 | Outpatient (BNVA) | payer MEDICARE, SELFPAY | PROVIDERS: PCP Family Medicine; Visit Provider Family Medicine | DX: D50.8 Other iron deficiency anemias (principal); R53.1 Weakness; M25.50 Pain in unspecified joint | CPT/HCPCS: 82607; 82728; 82746; 83550; 85025; 85045 ==

== ENCOUNTER → 2024-02-21 08:56 | Outpatient (BNVA) | payer MEDICARE, SELFPAY | PROVIDERS: PCP Family Medicine; Visit Provider Surgery | DX: Z09 Encounter for follow-up examination after completed treatment for conditions other than malignant neoplasm (principal); K92.1 Melena | CPT/HCPCS: 99214 ==

== ENCOUNTER 2024-02-25 09:50 | Outpatient (CLI) | payer MEDICARE, SELFPAY ==
[2024-02-25 10:17] VITALS: PULSE 71; RESP 18; O2SAT 99
[2024-02-25] MEDS: albuterol 2.5 mg/3 mL Neb INHALATION (10:17)
[2024-02-25 10:21] VITALS: PULSE 69
== END 2024-02-25 09:51 | disposition home or self-care (01) ==
PROVIDERS: PCP Family Medicine; Visit Provider Internal Medicine Pulmonary Disease
DX: R06.02 Shortness of breath (principal)
CPT/HCPCS: 94060; 94618; 94726; 94729

== ENCOUNTER → 2024-03-05 10:37 | Outpatient (BNVA) | payer MEDICARE, SELFPAY | PROVIDERS: PCP Family Medicine; Visit Provider Family Medicine | DX: R10.9 Unspecified abdominal pain (principal) | CPT/HCPCS: 82150; 83690 ==

== ENCOUNTER 2024-04-03 10:35 | Outpatient (CLI) | payer MEDICARE, SELFPAY ==
--- NOTE | 2024-04-03 10:45 | CTR_ITS ---
PROCEDURE INFORMATION: Exam: CT Abdomen And Pelvis Without And With Contrast Exam date and time: 04/03/2024 11:33 AM Age: 78 years old Clinical indication: Condition or disease; Pancreatic condition; Pancreatitis; Primary cancer: Breast with left mastectomy, no chemo/radiation; Prior surgery; Surgery date: 6+ months; Surgery type: Left breast, none ap region; Additional info: Pancreatitis, follow up on CT from fall TECHNIQUE: Imaging protocol: Computed tomography of the abdomen and pelvis without and with contrast. Radiation optimization: All CT scans at this facility use at least one of these dose optimization techniques: automated exposure control; mA and/or kV adjustment per patient size (includes targeted exams where dose is matched to clinical indication); or iterative reconstruction. Contrast material: OMNI 350; Contrast volume: 95 ml; Contrast route: INTRAVENOUS (IV); COMPARISON: PT PET [facility] INITIAL [id number] 10/29/2023 12:11 PM RADIATION DOSE METRICS: Total DLP (mGy-cm): 421.04 FINDINGS: Liver: Tiny hypodensity too small to definitively characterize. Gallbladder and bile ducts: No acute findings. Pancreas: No acute inflammation. Diffuse calcifications most commonly seen with chronic pancreatitis. No mass or ductal dilation. Spleen: No splenomegaly. Adrenal glands: No mass. Kidneys and ureters: Bilateral nonobstructing renal calculi measuring up to 10 mm on the left and 6 mm on the right. Stomach and bowel: No obstruction. Appendix: No evidence of appendicitis. Intraperitoneal space: No free air. No significant fluid collection. Vasculature: Extensive multifocal atherosclerotic changes without aneurysm. Lymph nodes: No enlarged lymph nodes. Urinary bladder: Incompletely distended. Reproductive: No acute findings. Bones/joints: No acute findings. Soft tissues: No acute findings. CT/CT abdomen wo/w con [id number] IMPRESSION: No acute abdominal findings. Bilateral nonobstructing renal calculi.
[2024-04-03 11:31] LABS: Blood Urea Nitrogen 14 mg/dL (8-23)
[2024-04-03] MEDS: iohexol 350 mg/mL 500 mL Btl (per mL) IV (11:38)
== END 2024-04-03 10:36 | disposition home or self-care (01) ==
LOC: RAD 10:36
PROVIDERS: PCP Family Medicine; Visit Provider Family Medicine
DX: K85.90 Acute pancreatitis without necrosis or infection, unspecified (principal); N20.0 Calculus of kidney; I70.90 Unspecified atherosclerosis; Z85.3 Personal history of malignant neoplasm of breast; Z90.12 Acquired absence of left breast and nipple
CPT/HCPCS: 74170; 82565; 84520; Q9967

== ENCOUNTER 2024-04-16 09:33 | Oncology outpatient (recurring) (ONCR) | payer MEDICARE, SELFPAY ==
--- NOTE | 2024-05-04 14:15 | CTR_ITS ---
PROCEDURE INFORMATION: Exam: CT Chest With Contrast; Diagnostic Exam date and time: 05/04/2024 3:02 PM Age: 79 years old Clinical indication: Abnormal findings; Lung mass or nodule; Not specified; Prior surgery; Surgery date: 6+ months; Surgery type: Left breast; Patient HX: HX of breast cancer; Additional info: Lung nodules TECHNIQUE: Imaging protocol: Diagnostic computed tomography of the chest with contrast. Radiation optimization: All CT scans at this facility use at least one of these dose optimization techniques: automated exposure control; mA and/or kV adjustment per patient size (includes targeted exams where dose is matched to clinical indication); or iterative reconstruction. Contrast material: OMNI 350; Contrast volume: 100 ml; Contrast route: INTRAVENOUS (IV); COMPARISON: 1. PT PET [facility] INITIAL [id number] 10/29/2023 12:[address] [place] [id number] 10/09/2023 12:55 PM RADIATION DOSE METRICS: Total DLP (mGy-cm): 219.13 FINDINGS: Lungs: Since the prior PET scan there has been interval enlargement in an irregular soft tissue mass within the lingula which now measures 2.3 x 2.1 cm as seen on series 4, image 37 compared with 1.7 x 1.9 cm previously. There has also been interval enlargement in a left lower lobe nodule which measures 1.2 x 1.3 cm as seen on series 4, image 51 compared with 8 x 10 mm previously. There are stable calcified nodules again noted. No consolidating infiltrates are seen. Pleural spaces: Unremarkable. No pneumothorax. No pleural effusion. Heart: Unremarkable. No cardiomegaly. No pericardial effusion. Lymph nodes: There has been interval progression in mediastinal and left hilar lymphadenopathy. Lymph nodes are heterogeneous in appearance with areas of central low-density suspicious for necrosis. The largest subcarinal lymph node measures 2.3 cm in short axis dimension. The largest left hilar lymph node measures 2.1 cm in short axis dimension. Additionally there are stable calcified right hilar lymph and mediastinal lymph nodes visualized. Vasculature: Unremarkable. No aortic aneurysm. Liver: There are stable low-density lesions within the left lobe of the liver which are unchanged since 10/09/2023 and also compared with a CT abdomen and pelvis report dated 01/24/2011, suspicious for a benign lesion such as small cysts or hemangiomas. Bones/joints: Unremarkable. No acute fracture. Soft tissues: Unremarkable. CT/CT chest w con* [id number] IMPRESSION: 1. Interval enlargement in a lingular mass and left lower lobe pulmonary nodule with worsening left hilar and mediastinal lymphadenopathy. Findings are suspicious for primary bronchogenic neoplasm within the lingula with ipsilateral left lower lobe and mediastinal and left hilar metastatic lymph nodes however metastatic left lung and lymph node metastasis owing to breast carcinoma could also produce these findings. 2. Stable low-density liver lesions which are unchanged since 2010 suspicious for benign lesions such as hepatic cysts or cavernous hemangiomas. 3. No acute abnormality
[2024-05-04] MEDS: iohexol 350 mg/mL 500 mL Btl (per mL) IV (15:12)
== END 2024-05-10 23:59 | disposition home or self-care (01) ==
LOC: ONCMED 05-04 14:39 → RAD 05-05 00:01
PROVIDERS: PCP Family Medicine; Visit Provider Internal Medicine Medical Oncology
DX: R91.8 Other nonspecific abnormal finding of lung field (principal); K76.9 Liver disease, unspecified; Z53.9 Procedure and treatment not carried out, unspecified reason
CPT/HCPCS: 71260; 99205; Q9967

== ENCOUNTER → 2024-05-18 13:50 | Outpatient (BNVA) | payer MEDICARE, SELFPAY | PROVIDERS: PCP Family Medicine; Visit Provider Nurse Practitioner | DX: M25.511 Pain in right shoulder (principal); M75.81 Other shoulder lesions, right shoulder | CPT/HCPCS: 20610; 73030; 99214; J1100; J2795; J3301 ==

== ENCOUNTER → 2024-06-09 13:54 | Outpatient (BNVA) | payer MEDICARE, SELFPAY | PROVIDERS: PCP Family Medicine; Visit Provider Internal Medicine | DX: I25.10 Atherosclerotic heart disease of native coronary artery without angina pectoris (principal); I10 Essential (primary) hypertension; Z72.0 Tobacco use | CPT/HCPCS: 99214 ==

== ENCOUNTER → 2024-07-03 08:48 | Day surgery (SDC) | payer MEDICARE, SELFPAY ==
--- NOTE | 2024-07-03 08:54 | XR_ITS ---
WS: [id number] Portable AP supine chest, 07/03/2024 Clinical Data: Post PICC insertion Comparison: Portable chest, 09/10/2023 Findings: The right PICC line ends in the mid superior vena cava. The patient's clothing does obscure detail slightly. No pneumothorax is present. There is a left lung nodule measuring 2.2 cm unchanged. There are surgical clips in the left axilla. XR/XR chest 1V portable [id number] Impression: Satisfactory placement of right PICC line.
[2024-07-03 09:00] VITALS: BP 129/60; PULSE 68; RESP 18; TEMP 36.2; O2SAT 94
--- NOTE | 2024-07-03 09:30 | PICC.NOTE ---
Single lumen PICC placed to right basilic vein. Referred to vascular access nurse for PICC placement due to need for chemotherapy. Risks and benefits discussed and informed consent obtained from patient. Right arm assessed with right basilic vein measuring 5.0 mm, straight, and apparent best choice for placement. Using sterile technique and MST, right basilic vein accessed x 1 stick. Mid-arm circumference measured 10 cm from right AC 23 cm. Trimmed cath 37 cm with 0 cm external length noted. CXR shows tip in SVC, in satisfactory position for use per radiologist. Line secured with stat-lock. Insertion site covered with Biopatch and TSM. Report given to [facility] nurseKaren.
== END ==
PROVIDERS: PCP Family Medicine; Visit Provider Radiology Radiation Oncology
DX: Z45.2 Encounter for adjustment and management of vascular access device (principal)
CPT/HCPCS: 36573; 71045

== ENCOUNTER 2024-07-06 12:59 | Oncology outpatient (recurring) (ONCR) | payer MEDICARE, SELFPAY ==
--- NOTE | 2024-06-16 12:00 | PETR_ITS ---
PROCEDURE INFORMATION: Exam: PET/CT Skull Base to Mid-thigh Exam date and time: 06/16/2024 12:07 PM Age: 79 years old Clinical indication: Abnormal findings; Interval enlargement in a lingular mass and left lower lobe pulmonary nodule with worsening left hilar and mediastinal lymphadenopathy; Prior surgery; Surgery date: 6+ months; Surgery type: Left breast; Additional info: Staging LABS AND CLINICAL REPORTS: Glucose: 89 mg/dl Treatment strategy for malignancy (PET staging): Initial Staging (PI) TECHNIQUE: Imaging protocol: Following at least four-hour fasting and following the injection of radiopharmaceutical, low dose CT images were obtained. Then, PET images were obtained. Attenuation corrected images were constructed using the CT scan. Fused images of PET and CT were reviewed. The standardized uptake values (SUV) reported below are maximum values within a region of interest, expressed in gm/ml. Exam includes orbital meatal line to mid-thigh. Radiopharmaceutical: 10.78 mCi F-18 FDG (Fluorodeoxyglucose), IV. Time of imaging post radiopharmaceutical administration: 51 minutes Injection site: Right antecubital COMPARISON: 1. PT PET [facility] INITIAL [id number] 10/29/2023 12:[address] chest w con* [id number] 05/04/2024 3:[address] abdomen wo/w con [id number] 04/03/2024 11:33 AM FINDINGS: Brain: Visualized brain has normal physiologic uptake. Pharynx: No abnormal uptake. Larynx: No abnormal uptake. Lungs, pleura and trachea: Redemonstrated 2.3 x 2.1 cm lingular nodule with SUV max of 8.5, previously 6.0. 1.3 cm basal left lower lobe nodule shows SUV max of 11.0, previously 1 cm with SUV max of 3.0. Right lung calcified granulomata. Heart: Normal physiologic uptake. Coronary arteries: Mild coronary artery calcification. Mediastinal space: No abnormal uptake. Liver: No abnormal uptake. Couple small left hepatic hypodensities redemonstrated. Tiny calcifications in keeping with sequela of old granulomatous disease. Gallbladder and biliary ducts: No abnormal uptake. Pancreas: No abnormal uptake. Diffuse small calcifications in keeping with chronic pancreatitis. Spleen: No abnormal uptake. Tiny splenic calcifications in keeping with sequela of old granulomatous disease. Adrenal glands: No abnormal uptake. Kidneys and ureters: Normal physiologic uptake. Bilateral nonobstructive nephrolithiasis. Stomach and bowel: No abnormal uptake. Vasculature: No abnormal uptake. Heavy systemic atherosclerotic calcification without aortic aneurysm. Lymph nodes: Necrotic mediastinal and left hilar lymphadenopathy with index subcarinal node measuring 2.4 cm in the short axis showing SUV max of 9.8, previously 2.0 cm with SUV max of 2.9. Abnormal AP window lymph node measures 2.2 cm in the short axis and shows SUV max of 8.2. Index necrotic left hilar node measures 2.2 cm on axial image 188 of series 202 and shows SUV max of 11.0, previously 2.8. Calcified mediastinal and right hilar lymph nodes in keeping with sequela of old granulomatous disease. Skeleton: Focal lucent and sclerotic lesion of the left T6 transverse process with SUV max of 5.5 on axial image 203 of series 202. Low-level right glenohumeral joint periarticular FDG uptake and redemonstrated joint effusion compatible with rotator cuff tendinopathy/degenerative change. FDG uptake adjacent to the avsa-hzhkaxz-esdi-right femoral necks without underlying CT abnormality is likely inflammatory. Degenerative change along the axial and proximal appendicular skeletal system. Soft tissues: No abnormal uptake in the visualized head, neck, chest, abdomen, pelvis, and extremities. Prior left mastectomy. Left axillary surgical clips. PET/PET skull to thigh SUBS [id number] IMPRESSION: 1. Disease progression with increased FDG avid lingular and basal left lower lobe nodules, worsened mediastinal and left hilar lymphadenopathy, and developed left T6 transverse process metastasis. 2. Additional chronic and incidental findings as above.
--- NOTE | 2024-07-02 09:05 | N.ONRAD NP_ITS ---
Radiation Oncology New Patient Visit Patient: Priscilla Taylor MR#: [id number] : 1945 Age: 79 Sex: Female Dictated by: Dr. Caroline Segura Date of Service: 07/01/2024 Referring Physician(s) : Cam Gentile M.D. Diagnosis: Non-small cell carcinoma of the lung Radiotherapy to date: Summary > No prior radiation therapy. Chief Complaint / History of Present Illness: Patient is a 79-year-old lady who in September 2023 was found to have a mass in the lingula as well as a mass in the left lower lobe. She subsequently had a significant GI bleed which delayed any additional intervention. In April she had a repeat CT which showed mediastinal and hilar nodes as well as the lung masses and a lesion at T6. She is here today to discuss combined modality therapy. Symptom shen she has a cough which is nonproductive. Current Medications: acetaminophen 500 mg PO Q6H PRN amlodipine TAKE ONE TABLET BY MOUTH DAILY atorvastatin TAKE ONE TABLET BY MOUTH DAILY digoxin TAKE ONE TABLET BY MOUTH DAILY escitalopram oxalate 10 mg PO QPM hydrocortisone 2.5% (Anusol-HC) 1 applic AR QID PRN Lactobacillus acidophilus (Probiotic) 10,000 mmu cells PO DAILY lidocaine 4% 1 applic topical QID PRN magnesium oxide 200 mg PO DAILY metoprolol tartrate 25 mg PO BID lx-cwz-jgaoi-calcium carb-K1 400 mcg-500 mg calcium-20 mcg (Women's 50 Plus Daily Formula) 1 tab PO DAILY naproxen sodium (Aleve) 220 mg PO BID PRN nitroglycerin 0.4 mg sublingual Q5M PRN pantoprazole (Protonix) 40 mg PO DAILY Allergies: NKA Medical History: No history of collagen vascular disease. No previous radiation therapy. Non-small cell lung cancer Paroxysmal atrial fibrillation History of non-ST elevation myocardial infarction (NSTEMI) (08/2023) Coronary angiogram showed no significant coronary artery disease History of pancreatitis (02/2024) Hypertension Depression Tobacco abuse Serum calcium elevated Non-ST elevation MT (NSTEMI) History of palpitations Breast cancer Surgical History: History of esophagogastroduodenoscopy (EGD) (01/08/24) History of left mastectomy History of total right knee replacement April [address]23 Dr. [place] History of colonoscopy (01/08/24) Family History: Brother CAD (coronary artery disease) Social History: Smoking and tobacco/nicotine status: current every day tobacco/nicotine user Alcohol intake: never Substance/Drug Use: never Adopted: No Household members: none Housing: House Marital status: / Highest education level completed: 8th Grade service: No Current occupational status: retired Pets and animals: Yes Current gender identity: Female Current Complaints / Review of Systems: . Vital Signs: Performed on 07/01/2024 2:08 PM BMI - 20.596 kg/m2, Height - 61 in, Weight - 109 lbs, Temperature - 97.6 f, Pulse - 79 /min, Respiration - 16 /min, O2 Sat - 96 %, Pain - 0, Fatigue - 0 and BP - 111/ 60 mm(hg)(/low). Physical Exam: General: Patient is in no apparent distress. HEENT normocephalic atraumatic. Pupils are equal round reactive to light. Extraocular muscles intact. Lungs: Respiratory rate is regular nonlabored Cardiovascular: Regular rate and rhythm Abdomen: Abdomen is nonprotuberant Extremities: No clubbing cyanosis or edema noted Neurological: Alert and orient x 3. Gait and speech within normal limits Psych: Affect appropriate for current situation Performance Status: 80 Pathology: Lab: Imaging: See HPI Impression: Non-small cell carcinoma of the lung Plan: I reviewed her history. We talked about her biopsy. We reviewed the course of patients who undergo combined modality therapy. We discussed the simulation process. We reviewed the daily treatment regiment. We discussed the risks and side effects both acute and long-term. At this point she verbalized understanding. The goal at this point is to include all known sites of disease in the radiated field. Plan for a 6-week course with combined therapy. Signed by: 07/02/2024 9:04:28 AM <<Signature on File>> Time spent with patient:45 CPT Code: CPT Code:
== END 2024-07-11 23:59 | disposition home or self-care (01) ==
PROVIDERS: PCP Family Medicine; Visit Provider Internal Medicine Medical Oncology
DX: Z53.9 Procedure and treatment not carried out, unspecified reason (principal); Z45.2 Encounter for adjustment and management of vascular access device
CPT/HCPCS: 36592; 78815; 99205; 99215; A9552

== ENCOUNTER 2024-08-10 09:33 | Oncology outpatient (recurring) (ONCR) | payer MEDICARE, SELFPAY ==
[2024-07-21 11:04] LABS: Basophils # 0.1 10^3/uL (0.0-0.1); Basophils % 0.6 %; Eosinophils # 0.1 10^3/uL (0.0-0.8); Eosinophils % 1.3 %; Hematocrit 44.8 % (36-47); Lymphocytes # 1.3 10^3/uL (0.8-4.8); Lymphocytes % 15.5 %; Mean Corpuscular HGB Conc 33.5 g/dL (30-55); Mean Corpuscular Hemoglobin 30.2 pg (27-33); Mean Corpuscular Volume 90.1 fl (85-98); Mean Platelet Volume 10.2 fL (7.4-10.4); Monocytes # 0.5 10^3/uL (0.2-0.9); Monocytes % 6.1 %; Neutrophils # 6.25 10^3/uL (1.8-7.7); Neutrophils % 76.3 %; Nucleated Red Blood Cells % 0 %; Platelet Count 228 10^3/cmm (157-399); Red Blood Count 4.97 10^6/uL (3.85-5.65); Red Cell Distribution Width 16.8 % (12.1-15.1)
[2024-07-21 11:25] LABS: Alanine Aminotransferase 15 U/L (0-33); Albumin Level 4.2 g/dL (3.5-5.2); Alkaline Phosphatase 86 U/L (35-105); Anion Gap 13.2 (5-19); Aspartate Amino Transferase 21 U/L (0-32); Blood Urea Nitrogen 10 mg/dL (8-23); Calcium 9.8 mg/dL (8.5-10.5); Carbon Dioxide 28 mmol/L (22-29); Chloride 102 mmol/L (98-107); Globulin 2.9 g/dL (1.3-4.6); Glucose 100 mg/dL (65-115); Osmolality Calculated 287 mOsm/kg (285-295); Potassium 4.2 mmol/L (3.5-5.1); Sodium 139 mmol/L (136-145); Total Bilirubin 0.4 mg/dL (0.15-1.2); Total Protein 7.1 g/dL (6.6-8.7)
[2024-07-29 08:21] LABS: Basophils % 0.1 %; Hematocrit 46.1 % (36-47); Lymphocytes # 0.6 10^3/uL (0.8-4.8); Lymphocytes % 8.1 %; Mean Corpuscular Hemoglobin 30.2 pg (27-33); Mean Corpuscular Volume 91.5 fl (85-98); Mean Platelet Volume 10.6 fL (7.4-10.4); Monocytes % 0.6 %; Neutrophils # 6.58 10^3/uL (1.8-7.7); Neutrophils % 90.8 %; Nucleated Red Blood Cells % 0 %; Platelet Count 240 10^3/cmm (157-399); Red Blood Count 5.04 10^6/uL (3.85-5.65); Red Cell Distribution Width 15.8 % (12.1-15.1); White Blood Count 7.25 10^3/uL (3.29-11.43)
[2024-07-29 08:36] LABS: Alanine Aminotransferase 11 U/L (0-33); Albumin Level 4.1 g/dL (3.5-5.2); Alkaline Phosphatase 95 U/L (35-105); Anion Gap 16.5 (5-19); Aspartate Amino Transferase 18 U/L (0-32); Blood Urea Nitrogen 17 mg/dL (8-23); Calcium 9.5 mg/dL (8.5-10.5); Carbon Dioxide 26 mmol/L (22-29); Chloride 104 mmol/L (98-107); Globulin 3.3 g/dL (1.3-4.6); Glucose 178 mg/dL (65-115); Osmolality Calculated 300 mOsm/kg (285-295); Potassium 4.5 mmol/L (3.5-5.1); Sodium 142 mmol/L (136-145); Total Bilirubin 0.5 mg/dL (0.15-1.2); Total Protein 7.4 g/dL (6.6-8.7)
[2024-07-29] MEDS: acetaminophen 325 mg Tablet 650 MG PO (10:39)
[2024-07-29] MEDS: sodium chloride 0.9% 250 ML 75 ML IV (10:40)
[2024-07-29] MEDS: famotidine 20 mg/2 mL INJ IVP (10:45)
[2024-07-29] MEDS: palonosetron 0.25 mg/5 mL SDV IVP (10:48)
[2024-07-29] MEDS: dexamethasone 4 mg/mL INJ 5 mL 12 MG IVP (10:50)
[2024-07-29] MEDS: diphenhydrAMINE 50 mg/mL SDV 1mL 25 MG IVP (10:53)
[2024-07-29 10:56] VITALS: BP 150/78; PULSE 74; RESP 18; TEMP 36.4; O2SAT 94
[2024-07-29] MEDS: PACLitaxeL 70 MG in sodium chloride 0.9%(non-DEHP) 250 ML 261.67 MG IV (11:33)
[2024-07-29] MEDS: CARBOplatin 150 MG in sodium chloride 0.9% 500 ML 515 MG IV (12:41)
[2024-07-29 14:10] VITALS: BP 102/52; PULSE 80; RESP 16; TEMP 36.7; O2SAT 99
--- NOTE | 2024-08-04 10:39 | ONCRAD TMN_ITS ---
Radiation Oncology Weekly Treatment Management Patient: Priscilla Taylor MR#: [id number] : 1945 Attending Physician: Dr. Yair Savage Date of Service: 08/04/2024 Referring Physician(s) : Cam Gentile M.D. Diagnosis: C34.92 - Malignant neoplasm of unspecified part of left bronchus or lung, Diagnosed 07/06/2024 (Active) Radiotherapy to date: Course: Lung 2023, Treatment Site: LT Lung, Ref. ID: [id number], Energy: 6X, Dose/Fx (cGy): 200, #Fx: 5 / 30, Dose Correction (cGy): 0, Total Dose Delivered (cGy): 1,000, Start Date: 07/29/2024, Elapsed Days: 6 Reason for visit: The patient is being seen today as part of their regularly scheduled weekly on treatment visits to assess for acute toxicities from radiotherapy. Review of Systems: Stable level of fatigue unchanged from baseline. Transient sore throat yesterday. Still smoking ??? ppd. Eating ok. Active with ADLs. Vital Signs: Performed on 08/04/2024 10:04 AM BMI - 20.18 kg/m2, Height - 61 in, Weight - 106.8 lbs, Temperature - 97.3 f, Pulse - 72 /min, Respiration - 16 /min, O2 Sat - 96 %, Pain - 0, Fatigue - 0 and BP - 122/ 75 mm(hg). Physical Exam: Imaging: Radiation therapy imaging related to accurate target localization (i.e. KV, MV and CBCT) was reviewed. Appropriate changes, if any, were made to ensure treatment accuracy. Plan: Good tolerance of treatment. Continue as planned. Signed by: Dr. Yair Savage 08/04/2024 10:38:42 AM
[2024-08-05 08:24] LABS: Basophils % 0.4 %; Hematocrit 41.3 % (36-47); Lymphocytes # 0.3 10^3/uL (0.8-4.8); Lymphocytes % 4.8 %; Mean Corpuscular HGB Conc 33.4 g/dL (30-55); Mean Corpuscular Hemoglobin 30.9 pg (27-33); Mean Corpuscular Volume 92.4 fl (85-98); Monocytes % 0.2 %; Neutrophils # 4.94 10^3/uL (1.8-7.7); Neutrophils % 93.8 %; Nucleated Red Blood Cells % 0 %; Platelet Count 168 10^3/cmm (157-399); Red Blood Count 4.47 10^6/uL (3.85-5.65); Red Cell Distribution Width 15.1 % (12.1-15.1); White Blood Count 5.26 10^3/uL (3.29-11.43)
[2024-08-05 10:19] LABS: Alanine Aminotransferase 6 U/L (0-33); Albumin Level 2.3 g/dL (3.5-5.2); Alkaline Phosphatase 45 U/L (35-105); Anion Gap 12.7 (5-19); Aspartate Amino Transferase 9 U/L (0-32); Blood Urea Nitrogen 14 mg/dL (8-23); Carbon Dioxide 16 mmol/L (22-29); Chloride 120 mmol/L (98-107); Creatinine Clr Calc Pharmacy 43.0272; Globulin 1.3 g/dL (1.3-4.6); Glucose 156 mg/dL (65-115); Osmolality Calculated 306 mOsm/kg (285-295); Sodium 146 mmol/L (136-145); Total Bilirubin 0.2 mg/dL (0.15-1.2); Total Protein 3.6 g/dL (6.6-8.7)
[2024-08-05 10:22] LABS: Calcium 5.1 mg/dL (8.5-10.5); Potassium 2.7 mmol/L (3.5-5.1)
[2024-08-05 10:45] LABS: Magnesium 1.1 mg/dL (1.7-2.3)
[2024-08-05] MEDS: sodium chlor 0.9% + KCl 20 mEq 20 MEQ/1,000 ML BAG 500 MEQ IV (14:14)
[2024-08-05] MEDS: magnesium sulfate premix 2 GM/50 ML PIGGYBACK IV (14:14)
[2024-08-05 14:47] LABS: Anion Gap 17.4 (5-19); Blood Urea Nitrogen 25 mg/dL (8-23); Calcium 9.3 mg/dL (8.5-10.5); Carbon Dioxide 25 mmol/L (22-29); Chloride 100 mmol/L (98-107); Creatinine Clr Calc Pharmacy 43.4561; Glucose 272 mg/dL (65-115); Osmolality Calculated 300 mOsm/kg (285-295); Potassium 4.4 mmol/L (3.5-5.1); Sodium 138 mmol/L (136-145)
[2024-08-05 15:20] VITALS: BP 118/50; PULSE 83; RESP 16; TEMP 36.8; O2SAT 98
[2024-08-06 10:07] VITALS: BP 134/69; PULSE 60; RESP 18; TEMP 36.3; O2SAT 99
[2024-08-06] MEDS: sodium chloride 0.9% 250 ML 75 ML IV (10:56)
[2024-08-06] MEDS: famotidine 20 mg/2 mL INJ IVP (11:00)
[2024-08-06] MEDS: acetaminophen 325 mg Tablet 650 MG PO (11:05)
[2024-08-06] MEDS: palonosetron 0.25 mg/5 mL SDV IVP (11:08)
[2024-08-06] MEDS: diphenhydrAMINE 50 mg/mL SDV 1mL 25 MG IVP (11:12)
[2024-08-06] MEDS: PACLitaxeL 70 MG in sodium chloride 0.9%(non-DEHP) 250 ML 261.67 MG IV (11:32)
[2024-08-06] MEDS: CARBOplatin 170 MG in sodium chloride 0.9% 500 ML 517 MG IV (12:51)
[2024-08-06 14:40] VITALS: BP 124/78; PULSE 74; RESP 18; TEMP 36.1; O2SAT 98
== END 2024-08-10 23:59 | disposition home or self-care (01) ==
PROVIDERS: Internal Medicine Medical Oncology; Nurse Practitioner; Nurse Practitioner Family; Radiology Radiation Oncology; PCP Family Medicine; Visit Provider Radiology Radiation Oncology
DX: Z51.0 Encounter for antineoplastic radiation therapy (principal); C34.12 Malignant neoplasm of upper lobe, left bronchus or lung
CPT/HCPCS: 36592; 77336; 77386; 80048; 80053; 83735; 85025; 96365; 96375; 96413; 96417; 99024; 99214; 99215; J1100; J1200; J2469; J3475; J3480; J3490; J7040; J7050; J9045; J9267

== ENCOUNTER 2024-08-26 10:27 | Oncology outpatient (recurring) (ONCR) | payer MEDICARE, SELFPAY ==
--- NOTE | 2024-08-11 10:14 | ONCRAD TMN_ITS ---
Radiation Oncology Weekly Treatment Management Patient: Priscilla Taylor MR#: [id number] : 1945 Attending Physician: Po Sandoval Date of Service: 08/11/2024 Referring Physician(s) : Cam Gentile M.D. Diagnosis: C34.92 - Malignant neoplasm of unspecified part of left bronchus or lung, Diagnosed 07/06/2024 (Active) Radiotherapy to date: Course: Lung 2023, Treatment Site: LT Lung, Ref. ID: [id number], Energy: 6X, Dose/Fx (cGy): 200, #Fx: , Dose Correction (cGy): 0, Total Dose Delivered (cGy): 2,000, Start Date: 07/29/2024, Elapsed Days: 13 Reason for visit: The patient is being seen today as part of their regularly scheduled weekly on treatment visits to assess for acute toxicities from radiotherapy. Chief Complaint / History of Present Illness: Patient is a 79-year-old lady who in September 2023 was found to have a mass in the lingula as well as a mass in the left lower lobe. She subsequently had a significant GI bleed which delayed any additional intervention. In April she had a repeat CT which showed mediastinal and hilar nodes as well as the lung masses and a lesion at T6. She is here today to discuss combined modality therapy. Symptom shen she has a cough which is nonproductive. Review of Systems: Patient tolerating treatment well. She has some tenderness in the mid back range that she thinks was related to her sleeping on a couch at her daughters during the week. She does have disease at T6. We did ask her to tell us if it continues and we will further investigate the disease process. She denies any hemoptysis. She still continues to smoke a half a pack per day. She is lost 0.5 pounds since last visit. Vital Signs: Performed on 08/11/2024 9:53 AM BMI - 20.066 kg/m2, Height - 61 in, Weight - 106.2 lbs, Temperature - 97.3 f, Pulse - 77 /min, Respiration - 20 /min, O2 Sat - 97 %, Pain - 0, Fatigue - 0 and BP - 146/ 65 mm(hg)(high/). Physical Exam: Alert and oriented and answers questions appropriately. Lungs are clear to auscultation. No intercostal retractions noted. Vertebral exam shows no significant bony tenderness. Imaging: Radiation therapy imaging related to accurate target localization (i.e. KV, MV and CBCT) was reviewed. Appropriate changes, if any, were made to ensure treatment accuracy. Plan: Tolerating treatment well Continue XRT If pain persists in her back, we will further get investigate the T6 lesion Signed by: Po Sandoval 08/11/2024 10:13:38 AM
[2024-08-11 10:27] LABS: Basophils % 1.3 %; Eosinophils # 0.1 10^3/uL (0.0-0.8); Eosinophils % 3.1 %; Hematocrit 38.6 % (36-47); Lymphocytes # 0.4 10^3/uL (0.8-4.8); Lymphocytes % 27.5 %; Mean Corpuscular HGB Conc 33.7 g/dL (30-55); Mean Corpuscular Hemoglobin 31.3 pg (27-33); Mean Corpuscular Volume 92.8 fl (85-98); Mean Platelet Volume 10.1 fL (7.4-10.4); Monocytes # 0.3 10^3/uL (0.2-0.9); Monocytes % 17.5 %; Nucleated Red Blood Cells % 0 %; Platelet Count 153 10^3/cmm (157-399); Red Blood Count 4.16 10^6/uL (3.85-5.65); Red Cell Distribution Width 14.7 % (12.1-15.1)
[2024-08-11 10:43] LABS: Alanine Aminotransferase 11 U/L (0-33); Albumin Level 3.9 g/dL (3.5-5.2); Alkaline Phosphatase 79 U/L (35-105); Anion Gap 11.4 (5-19); Aspartate Amino Transferase 16 U/L (0-32); Blood Urea Nitrogen 16 mg/dL (8-23); Carbon Dioxide 29 mmol/L (22-29); Chloride 102 mmol/L (98-107); Globulin 2.9 g/dL (1.3-4.6); Glucose 82 mg/dL (65-115); Osmolality Calculated 286 mOsm/kg (285-295); Potassium 4.4 mmol/L (3.5-5.1); Sodium 138 mmol/L (136-145); Total Bilirubin 0.8 mg/dL (0.15-1.2); Total Protein 6.8 g/dL (6.6-8.7)
[2024-08-18 10:49] LABS: Basophils % 0.7 %; Eosinophils % 0.7 %; Hematocrit 40.7 % (36-47); Lymphocytes # 0.3 10^3/uL (0.8-4.8); Lymphocytes % 7.5 %; Mean Corpuscular HGB Conc 33.2 g/dL (30-55); Mean Corpuscular Hemoglobin 31.7 pg (27-33); Mean Corpuscular Volume 95.5 fl (85-98); Mean Platelet Volume 9.7 fL (7.4-10.4); Monocytes # 0.8 10^3/uL (0.2-0.9); Monocytes % 17.2 %; Neutrophils # 3.32 10^3/uL (1.8-7.7); Nucleated Red Blood Cells % 0 %; Platelet Count 209 10^3/cmm (157-399); Red Blood Count 4.26 10^6/uL (3.85-5.65); Red Cell Distribution Width 15.3 % (12.1-15.1); White Blood Count 4.54 10^3/uL (3.29-11.43)
[2024-08-18 10:59] LABS: Alanine Aminotransferase 11 U/L (0-33); Albumin Level 3.8 g/dL (3.5-5.2); Alkaline Phosphatase 87 U/L (35-105); Anion Gap 11.4 (5-19); Aspartate Amino Transferase 14 U/L (0-32); Blood Urea Nitrogen 11 mg/dL (8-23); Calcium 8.9 mg/dL (8.5-10.5); Carbon Dioxide 27 mmol/L (22-29); Chloride 104 mmol/L (98-107); Creatinine Clr Calc Pharmacy 43.4561; Globulin 2.9 g/dL (1.3-4.6); Glucose 84 mg/dL (65-115); Osmolality Calculated 285 mOsm/kg (285-295); Potassium 4.4 mmol/L (3.5-5.1); Sodium 138 mmol/L (136-145); Total Bilirubin 0.4 mg/dL (0.15-1.2); Total Protein 6.7 g/dL (6.6-8.7)
--- NOTE | 2024-08-19 10:49 | ONCRAD TMN_ITS ---
Radiation Oncology Weekly Treatment Management Patient: Claudia Snyder MR#: [id number] : 1945> Attending Physician: Dr. Caroline Segura Date of Service: 08/19/2024 Fractions: 15 out of 30 Referring Physician(s) : Cam Gentile M.D. Diagnosis: C34.92 - Malignant neoplasm of unspecified part of left bronchus or lung, Diagnosed 07/06/2024 (Active) Radiotherapy to date: Course: Lung 2023, Treatment Site: LT Lung, Ref. ID: [id number], Energy: 6X, Dose/Fx (cGy): 200, #Fx: , Dose Correction (cGy): 0, Total Dose Delivered (cGy): 3,200, Start Date: 07/29/2024, Elapsed Days: Reason for visit: The patient is being seen today as part of their regularly scheduled weekly on treatment visits to assess for acute toxicities from radiotherapy. Review of Systems: Patient has had no additional sore throat. She did bring the bottle with her today of the viscous lidocaine. We talked about how she can use 5 mL or a teaspoon of the viscous lidocaine if she develops a sore throat again Vital Signs: Performed on 08/19/2024 9:53 AM BMI - 19.802 kg/m2, Height - 61 in, Weight - 104.8 lbs, Temperature - 96.7 f, Pulse - 86 /min, Respiration - 18 /min, O2 Sat - 96 %, Pain - 0, Fatigue - 0 and BP - 133/ 69 mm(hg). Physical Exam: No changes on exam Imaging: Radiation therapy imaging related to accurate target localization (i.e. KV, MV and CBCT) was reviewed. Appropriate changes, if any, were made to ensure treatment accuracy. Plan: Will continue with her treatments as planned Signed by: Dr. Caroline Segura 08/19/2024 10:47:21 AM
[2024-08-19] MEDS: sodium chloride 0.9% 250 ML 75 ML IV (11:27)
[2024-08-19] MEDS: acetaminophen 325 mg Tablet 650 MG PO (11:27)
[2024-08-19] MEDS: diphenhydrAMINE 50 mg/mL SDV 1mL 25 MG IVP (11:36)
[2024-08-19] MEDS: palonosetron 0.25 mg/5 mL SDV IVP (11:41)
[2024-08-19] MEDS: famotidine 20 mg/2 mL INJ IVP (11:46)
[2024-08-19] MEDS: PACLitaxeL 70 MG in sodium chloride 0.9%(non-DEHP) 250 ML 261.67 MG IV (12:10)
[2024-08-19] MEDS: CARBOplatin 160 MG in sodium chloride 0.9% 500 ML 516 MG IV (13:22)
[2024-08-19 14:36] VITALS: BP 124/66; PULSE 86; RESP 16; TEMP 36.4; O2SAT 97
[2024-08-25 10:11] LABS: Basophils % 0.5 %; Eosinophils % 0.7 %; Hematocrit 38.6 % (36-47); Lymphocytes # 0.3 10^3/uL (0.8-4.8); Lymphocytes % 5.5 %; Mean Corpuscular HGB Conc 32.6 g/dL (30-55); Mean Corpuscular Hemoglobin 30.8 pg (27-33); Mean Corpuscular Volume 94.4 fl (85-98); Mean Platelet Volume 9.9 fL (7.4-10.4); Monocytes # 0.3 10^3/uL (0.2-0.9); Monocytes % 5.1 %; Neutrophils # 4.95 10^3/uL (1.8-7.7); Neutrophils % 87.5 %; Nucleated Red Blood Cells % 0 %; Platelet Count 146 10^3/cmm (157-399); Red Blood Count 4.09 10^6/uL (3.85-5.65); Red Cell Distribution Width 14.6 % (12.1-15.1); White Blood Count 5.66 10^3/uL (3.29-11.43)
--- NOTE | 2024-08-25 10:32 | ONCRAD TMN_ITS ---
Radiation Oncology Weekly Treatment Management Patient: Priscilla Taylor MR#: [id number] : 1945 Attending Physician: Dr. Caroline Segura Date of Service: 08/25/2024 Fractions: 19 out of 30 Referring Physician(s) : Cam Gentile M.D. Diagnosis: C34.92 - Malignant neoplasm of unspecified part of left bronchus or lung, Diagnosed 07/06/2024 (Active) Radiotherapy to date: Course: Lung 2023, Treatment Site: LT Lung, Ref. ID: [id number], Energy: 6X, Dose/Fx (cGy): 200, #Fx: , Dose Correction (cGy): 0, Total Dose Delivered (cGy): 3,800, Start Date: 07/29/2024, Elapsed Days: 27 Reason for visit: The patient is being seen today as part of their regularly scheduled weekly on treatment visits to assess for acute toxicities from radiotherapy. Review of Systems: Patient has good appetite. Her energy level is good. She is not having difficulties swallowing. She was able to go home over the weekend which she typically does when she feels well. Vital Signs: Performed on 08/25/2024 9:53 AM BMI - 20.104 kg/m2, Height - 61 in, Weight - 106.4 lbs, Temperature - 96.9 f, Pulse - 83 /min, Respiration - 16 /min, O2 Sat - 98 %, Pain - 0, Fatigue - 2 and BP - 121/ 64 mm(hg)(/low). Physical Exam: No changes on exam Imaging: Radiation therapy imaging related to accurate target localization (i.e. KV, MV and CBCT) was reviewed. Appropriate changes, if any, were made to ensure treatment accuracy. Plan: Will continue with her treatments as planned. She has 11 treatments remaining. She will receiving chemotherapy tomorrow Signed by: Dr. Caroline Segura 08/25/2024 10:31:21 AM
[2024-08-25 10:33] LABS: Alanine Aminotransferase 8 U/L (0-33); Albumin Level 3.8 g/dL (3.5-5.2); Alkaline Phosphatase 89 U/L (35-105); Anion Gap 14.4 (5-19); Aspartate Amino Transferase 14 U/L (0-32); Blood Urea Nitrogen 15 mg/dL (8-23); Calcium 8.8 mg/dL (8.5-10.5); Carbon Dioxide 27 mmol/L (22-29); Chloride 100 mmol/L (98-107); Creatinine Clr Calc Pharmacy 42.8843; Globulin 2.6 g/dL (1.3-4.6); Glucose 140 mg/dL (65-115); Osmolality Calculated 287 mOsm/kg (285-295); Potassium 4.4 mmol/L (3.5-5.1); Sodium 137 mmol/L (136-145); Total Bilirubin 0.7 mg/dL (0.15-1.2); Total Protein 6.4 g/dL (6.6-8.7)
[2024-08-26] MEDS: acetaminophen 325 mg Tablet 650 MG PO (13:16)
[2024-08-26] MEDS: palonosetron 0.25 mg/5 mL SDV IVP (13:19)
[2024-08-26] MEDS: sodium chloride 0.9% 250 ML 75 ML IV (13:19)
[2024-08-26] MEDS: dexamethasone 4 mg/mL INJ 5 mL 12 MG IV (13:22)
[2024-08-26] MEDS: famotidine 20 mg/2 mL INJ IVP (13:22)
[2024-08-26] MEDS: diphenhydrAMINE 50 mg/mL SDV 1mL 25 MG IVP (13:26)
[2024-08-26] MEDS: PACLitaxeL 70 MG in sodium chloride 0.9%(non-DEHP) 250 ML 261.67 MG IV (14:08)
[2024-08-26] MEDS: CARBOplatin 160 MG in sodium chloride 0.9% 500 ML 516 MG IV (15:20)
[2024-08-26 16:30] VITALS: BP 108/54; PULSE 89; RESP 16; TEMP 36.4; O2SAT 97
== END 2024-08-26 23:59 | disposition home or self-care (01) ==
PROVIDERS: Nurse Practitioner; PCP Family Medicine; Visit Provider Radiology Radiation Oncology
DX: Z53.9 Procedure and treatment not carried out, unspecified reason (principal); Z51.0 Encounter for antineoplastic radiation therapy; Z51.11 Encounter for antineoplastic chemotherapy; C34.12 Malignant neoplasm of upper lobe, left bronchus or lung; Z79.899 Other long term (current) drug therapy; Z79.52 Long term (current) use of systemic steroids; F17.290 Nicotine dependence, other tobacco product, uncomplicated
CPT/HCPCS: 36592; 77336; 77386; 80053; 85025; 96375; 96413; 96417; 99024; 99214; J1100; J1200; J2469; J3490; J7040; J7050; J9045; J9267

== ENCOUNTER 2024-09-10 09:34 | Oncology outpatient (recurring) (ONCR) | payer MEDICARE, SELFPAY ==
[2024-08-31] MEDS: sodium chloride 0.9% 1,000 ML 999 ML IV (10:21)
[2024-08-31 11:35] VITALS: BP 113/61; PULSE 88; RESP 17; TEMP 36.5; O2SAT 96
--- NOTE | 2024-09-01 10:25 | ONCRAD TMN_ITS ---
Radiation Oncology Weekly Treatment Management Patient: Priscilla Taylor MR#: [id number] : 1945 Attending Physician: Dr. Yair Savage Date of Service: 09/01/2024 Referring Physician(s) : Cam Gentile M.D. Diagnosis: C34.92 - Malignant neoplasm of unspecified part of left bronchus or lung, Diagnosed 07/06/2024 (Active) Radiotherapy to date: Course: Lung 2023, Treatment Site: LT Lung, Ref. ID: [id number], Energy: 6X, Dose/Fx (cGy): 200, #Fx: , Dose Correction (cGy): 0, Total Dose Delivered (cGy): 4,800, Start Date: 07/29/2024, Elapsed Days: 34 Reason for visit: The patient is being seen today as part of their regularly scheduled weekly on treatment visits to assess for acute toxicities from radiotherapy. Review of Systems: She had IV fluids yesterday and now feels better. Some mild sore throat if she eats big bites of food. Still smoking 1/3 to ??? ppd. Living independently and alone. Eat better when she is with her daughter. Vital Signs: Performed on 09/01/2024 9:50 AM BMI - 19.877 kg/m2, Height - 61 in, Weight - 105.2 lbs, Temperature - 97.5 f, Pulse - 80 /min, Respiration - 16 /min, O2 Sat - 94 % (low), Pain - 0, Fatigue - 0 and BP - 111/ 57 mm(hg)(/low). Physical Exam: omtted. Imaging: Radiation therapy imaging related to accurate target localization (i.e. KV, MV and CBCT) was reviewed. Appropriate changes, if any, were made to ensure treatment accuracy. Plan: Good tolerance of treatment. Advised to now take good volumes of fluid orally. Also begged her to quit smoking. She will have PICC line looked at and have labs done today with chemo to resume tomorrow. Continue radiation as planned, Signed by: Dr. Yair Savage 09/01/2024 10:25:05 AM
[2024-09-01 10:40] LABS: Basophils % 1.6 %; Eosinophils % 1.6 %; Hematocrit 33.4 % (36-47); Lymphocytes # 0.1 10^3/uL (0.8-4.8); Lymphocytes % 10.6 %; Mean Corpuscular HGB Conc 33.2 g/dL (30-55); Mean Corpuscular Hemoglobin 31.2 pg (27-33); Mean Corpuscular Volume 93.8 fl (85-98); Mean Platelet Volume 9.7 fL (7.4-10.4); Monocytes # 0.2 10^3/uL (0.2-0.9); Monocytes % 17.1 %; Neutrophils % 68.3 %; Nucleated Red Blood Cells % 0 %; Platelet Count 96 10^3/cmm (157-399); Red Blood Count 3.56 10^6/uL (3.85-5.65); Red Cell Distribution Width 14.5 % (12.1-15.1); White Blood Count 1.23 10^3/uL (3.29-11.43)
[2024-09-01 10:49] LABS: Neutrophils # 0.84 10^3/uL (1.8-7.7)
[2024-09-01 11:01] LABS: Alanine Aminotransferase 8 U/L (0-33); Albumin Level 3.7 g/dL (3.5-5.2); Alkaline Phosphatase 75 U/L (35-105); Anion Gap 13.1 (5-19); Aspartate Amino Transferase 15 U/L (0-32); Blood Urea Nitrogen 13 mg/dL (8-23); Calcium 8.5 mg/dL (8.5-10.5); Carbon Dioxide 26 mmol/L (22-29); Chloride 101 mmol/L (98-107); Globulin 2.5 g/dL (1.3-4.6); Glucose 127 mg/dL (65-115); Osmolality Calculated 284 mOsm/kg (285-295); Potassium 4.1 mmol/L (3.5-5.1); Sodium 136 mmol/L (136-145); Total Bilirubin 0.9 mg/dL (0.15-1.2); Total Protein 6.2 g/dL (6.6-8.7)
[2024-09-02] MEDS: sodium chloride 0.9% 1,000 ML 999 ML IV (10:51)
[2024-09-02 12:10] VITALS: BP 112/50; PULSE 76; RESP 16; TEMP 36.6; O2SAT 97
[2024-09-04] MEDS: sodium chloride 0.9% 1,000 ML 999 ML IV (11:02)
[2024-09-04 11:10] VITALS: BP 116/70; PULSE 67; RESP 16; TEMP 36.6; O2SAT 96
[2024-09-04 12:05] VITALS: BP 111/63; PULSE 62; RESP 16; TEMP 36.4; O2SAT 97
[2024-09-07 09:58] LABS: Basophils % 0.5 %; Hematocrit 35.1 % (36-47); Lymphocytes # 0.3 10^3/uL (0.8-4.8); Lymphocytes % 11.9 %; Mean Corpuscular HGB Conc 32.2 g/dL (30-55); Mean Corpuscular Hemoglobin 30.7 pg (27-33); Mean Corpuscular Volume 95.4 fl (85-98); Mean Platelet Volume 9.8 fL (7.4-10.4); Monocytes # 0.5 10^3/uL (0.2-0.9); Monocytes % 22.9 %; Neutrophils # 1.27 10^3/uL (1.8-7.7); Neutrophils % 60.4 %; Nucleated Red Blood Cells % 0 %; Platelet Count 160 10^3/cmm (157-399); Red Blood Count 3.68 10^6/uL (3.85-5.65); Red Cell Distribution Width 17.2 % (12.1-15.1)
[2024-09-07 10:22] LABS: Alanine Aminotransferase 9 U/L (0-33); Albumin Level 3.6 g/dL (3.5-5.2); Alkaline Phosphatase 91 U/L (35-105); Anion Gap 12.4 (5-19); Aspartate Amino Transferase 15 U/L (0-32); Blood Urea Nitrogen 12 mg/dL (8-23); Calcium 8.6 mg/dL (8.5-10.5); Carbon Dioxide 27 mmol/L (22-29); Chloride 102 mmol/L (98-107); Creatinine Clr Calc Pharmacy 42.6394; Globulin 2.5 g/dL (1.3-4.6); Glucose 108 mg/dL (65-115); Osmolality Calculated 284 mOsm/kg (285-295); Potassium 4.4 mmol/L (3.5-5.1); Sodium 137 mmol/L (136-145); Total Bilirubin 0.7 mg/dL (0.15-1.2); Total Protein 6.1 g/dL (6.6-8.7)
--- NOTE | 2024-09-08 10:47 | ONCRAD TMN_ITS ---
Radiation Oncology Weekly Treatment Management Patient: Claudia Snyder MR#: [id number] : 1945> Attending Physician: Dr. Yair Savage Date of Service: 09/08/2024 Referring Physician(s) : Cam Gentile M.D. Diagnosis: C34.92 - Malignant neoplasm of unspecified part of left bronchus or lung, Diagnosed 07/06/2024 (Active) Radiotherapy to date: Course: Lung 2023, Treatment Site: LT Lung, Ref. ID: [id number], Energy: 6X, Dose/Fx (cGy): 200, #Fx: / , Dose Correction (cGy): 0, Total Dose Delivered (cGy): 5,600, Start Date: 07/29/2024, End Date: 09/08/2024, Elapsed Days: 41 Reason for visit: The patient is being seen today as part of their regularly scheduled weekly on treatment visits to assess for acute toxicities from radiotherapy. Review of Systems: swallowing is better and only some variable sore throat. She has magic mouthwash at home. Low energy level unchanged. She tries to be as active as her energy allows. Still smoking some. Eating ok. WBC has been too low for resuming chemo yet. Vital Signs: Performed on 09/08/2024 9:46 AM BMI - 19.689 kg/m2, Height - 61 in, Weight - 104.2 lbs, Temperature - 97.3 f, Pulse - 78 /min, Respiration - 18 /min, O2 Sat - 94 % (low), Pain - 4, Fatigue - 0 and BP - 111/ 58 mm(hg)(/low). Physical Exam: omitted. Imaging: Radiation therapy imaging related to accurate target localization (i.e. KV, MV and CBCT) was reviewed. Appropriate changes, if any, were made to ensure treatment accuracy. Plan: Good tolerance of treatment. Recheck CBC tomorrow. Again I begged her to quit smoking. Signed by: Dr. Yair Savage 09/08/2024 10:47:07 AM
[2024-09-09 08:52] LABS: Basophils % 0.3 %; Eosinophils % 1.3 %; Hematocrit 33.5 % (36-47); Lymphocytes # 0.4 10^3/uL (0.8-4.8); Lymphocytes % 12.5 %; Mean Corpuscular HGB Conc 32.8 g/dL (30-55); Mean Corpuscular Hemoglobin 31.5 pg (27-33); Mean Platelet Volume 9.5 fL (7.4-10.4); Monocytes # 0.6 10^3/uL (0.2-0.9); Monocytes % 18.9 %; Neutrophils # 1.92 10^3/uL (1.8-7.7); Neutrophils % 64.6 %; Nucleated Red Blood Cells % 0 %; Platelet Count 169 10^3/cmm (157-399); Red Blood Count 3.49 10^6/uL (3.85-5.65); Red Cell Distribution Width 18.2 % (12.1-15.1); White Blood Count 2.97 10^3/uL (3.29-11.43)
[2024-09-09 10:38] VITALS: BP 103/58; PULSE 70; RESP 17; TEMP 36.4; O2SAT 99
[2024-09-09] MEDS: acetaminophen 325 mg Tablet 650 MG PO (10:42)
[2024-09-09] MEDS: sodium chloride 0.9% 250 ML 75 ML IV (10:42)
[2024-09-09] MEDS: palonosetron 0.25 mg/5 mL SDV IVP (10:55)
[2024-09-09] MEDS: famotidine 20 mg/2 mL INJ IVP (10:59)
[2024-09-09] MEDS: diphenhydrAMINE 50 mg/mL SDV 1mL 25 MG IVP (11:01)
[2024-09-09] MEDS: dexamethasone 20 MG in sodium chloride 0.9% 50 ML 188 MG IV (11:32)
[2024-09-09] MEDS: PACLitaxeL 70 MG in sodium chloride 0.9%(non-DEHP) 250 ML 261.67 MG IV (11:59)
[2024-09-09] MEDS: CARBOplatin 150 MG in sodium chloride 0.9% 500 ML 515 MG IV (13:12)
[2024-09-09 14:31] VITALS: BP 105/62; PULSE 81; TEMP 36.8; O2SAT 98
--- NOTE | 2024-09-10 11:56 | N.ONRD TS_ITS ---
Radiation Oncology Treatment Summary Patient: Claudia>Claudio MR#: [id number] : 1945> Age: 79> Sex: Female Dictated by: Dr. Yair Savage Date of Service: 09/10/2024 Referring Physician(s) : Cam Gentile M.D. Diagnosis: C34.92 - Malignant neoplasm of unspecified part of left bronchus or lung, Diagnosed 07/06/2024 (Active) Radiotherapy to Date: Course: Lung 2023, Treatment Site: LT Lung, Ref. ID: [id number], Energy: 6X, Dose/Fx (cGy): 200, #Fx: 30 / 30, Dose Correction (cGy): 0, Total Dose Delivered (cGy): 6,000, Start Date: 07/29/2024, End Date: 09/10/2024, Elapsed Days: 43 Clinical Summary: The patient tolerated RT well. At the conclusion of treatment her swallowing was better and with some variable sore throat. She has magic mouthwash at home. Low energy level unchanged. She tried to be as active as her energy allowed.. She continued to smoke through treatment. Eating was ok. Plan: End of treatment today. Follow up in one month. Signed by: Dr. Yair Savage>09/10/2024 11:55:03 AM <<Signature on File>>
== END 2024-09-10 23:59 | disposition home or self-care (01) ==
PROVIDERS: Nurse Practitioner Family; PCP Family Medicine; Visit Provider Radiology Radiation Oncology
DX: Z51.0 Encounter for antineoplastic radiation therapy (principal); C34.12 Malignant neoplasm of upper lobe, left bronchus or lung; F17.290 Nicotine dependence, other tobacco product, uncomplicated; J02.9 Acute pharyngitis, unspecified
CPT/HCPCS: 36592; 77336; 77386; 80053; 85025; 96360; 96367; 96375; 96413; 96417; 99024; 99214; J1100; J1200; J2469; J3490; J7030; J7040; J7050; J9045; J9267

== ENCOUNTER 2024-10-07 08:30 | Oncology outpatient (recurring) (ONCR) | payer MEDICARE, SELFPAY ==
--- NOTE | 2024-09-25 10:00 | CTR_ITS ---
PROCEDURE INFORMATION: Exam: CT Chest With Contrast; Diagnostic Exam date and time: 09/25/2024 9:59 AM Age: 79 years old Clinical indication: Condition or disease; Other: Breast and lung cancer; Prior surgery; Surgery date: 6+ months; Surgery type: L mastectomy; Additional info: Restaging TECHNIQUE: Imaging protocol: Diagnostic computed tomography of the chest with contrast. Radiation optimization: All CT scans at this facility use at least one of these dose optimization techniques: automated exposure control; mA and/or kV adjustment per patient size (includes targeted exams where dose is matched to clinical indication); or iterative reconstruction. Contrast material: OMNI 350; Contrast volume: 100 ml; Contrast route: INTRAVENOUS (IV); COMPARISON: PT PET skull to thigh [id number] 06/16/2024 12:07 PM RADIATION DOSE METRICS: Total DLP (mGy-cm): 423.37 FINDINGS: Tubes, catheters and devices: Tip of the right PICC line terminates in the right atrium. Lungs: Interval decrease in size of mass in the lingula abutting the left major fissure. No new or enlarging pulmonary nodule is identified. Pleural spaces: Unremarkable. No pneumothorax. No pleural effusion. Heart: Normal heart size. No pericardial fluid. Lymph nodes: Heterogeneous, partially necrotic AP window, subcarinal, and left hilar nodes have mildly increased in size, for example subcarinal node measures 3.5 x 3.0 cm axial, previously 2.3 x 2.8 cm. Left hilar node measures 2.6 x 1.9 cm axial, previously 2.3 x 1.6 cm. Multiple calcified mediastinal and right hilar nodes from prior granulomatous infection. Vasculature: No PE. No evidence of cardiac strain. Bones/joints: Unremarkable. No acute fracture. Soft tissues: Unremarkable. PROCEDURE INFORMATION: Exam: CT Abdomen And Pelvis With Contrast Exam date and time: 09/25/2024 9:59 AM Age: 79 years old Clinical indication: Condition or disease; Other: Breast and lung cancer; Prior surgery; Surgery date: 6+ months; Surgery type: L mastectomy; Additional info: Restaging TECHNIQUE: Imaging protocol: Computed tomography of the abdomen and pelvis with contrast. Radiation optimization: All CT scans at this facility use at least one of these dose optimization techniques: automated exposure control; mA and/or kV adjustment per patient size (includes targeted exams where dose is matched to clinical indication); or iterative reconstruction. Contrast material: OMNI 350; Contrast volume: 100 ml; Contrast route: INTRAVENOUS (IV); COMPARISON: PT PET skull to thigh [id number] 06/16/2024 12:07 PM RADIATION DOSE METRICS: Total DLP (mGy-cm): 423.37 FINDINGS: Lungs: Lung bases are clear as visualized. Liver: Small benign cysts in the left hepatic lobe are unchanged. No new or enlarging hepatic lesion. Gallbladder and biliary ducts: Normal. No calcified stones. No ductal dilation. Pancreas: Multiple punctate parenchymal calcifications in the pancreas in keeping with prior pancreatitis. Spleen: Normal. No splenomegaly. Adrenal glands: Normal. No mass. Kidneys and ureters: Nonobstructive few calculi in the left kidney measuring up to 8 mm. Mild bilateral hydroureteronephrosis, possibly secondary to bilateral vesicoureteral reflux. Stomach and bowel: No bowel obstruction or acute inflammation.. Administered enteric contrast transits up to transverse colon. Appendix: No evidence of appendicitis. Intraperitoneal space: Unremarkable. No free air. No significant fluid collection. Vasculature: Unremarkable. No abdominal aortic aneurysm. Lymph nodes: Unremarkable. No enlarged lymph nodes. Urinary bladder: Distended bladder with mild wall thickening. Reproductive: Unremarkable as visualized. Bones/joints: Unremarkable. No acute fracture. Soft tissues: Unremarkable. CT/CT chest abdpel w/*[id number] IMPRESSION: 1. Interval decrease in size of mass in the lingula abutting the left major fissure. , now measuring 1.5 x 1.7 cm axial, previously 2.2 x 1.8 cm. Calcified granuloma anterior right middle lobe. Baseline moderate centrilobular emphysema. Minimally decreased size of lobular nodule in the left lung base measuring 10 x 11 mm axial, previously 11 x 12 mm. 2. No new or enlarging pulmonary nodule is identified. 3. No PE. No evidence of cardiac strain. IMPRESSION: 1. No evidence of metastatic disease in the abdomen and pelvis. 2. Mild bilateral hydroureteronephrosis, possibly due to vesicoureteral reflux. 3. Mildly distended bladder with mild wall thickening. Nonspecific. Correlate if there is concern for cystitis.
[2024-09-25] MEDS: iohexol 350 mg/mL 500 mL Btl (per mL) IV (10:15)
[2024-09-25] MEDS: iohexol 350 mg/mL 500 mL Btl (per mL) PO (10:15)
[2024-10-05 09:20] LABS: Basophils % 0.6 %; Eosinophils # 0.1 10^3/uL (0.0-0.8); Eosinophils % 0.9 %; Hematocrit 39.4 % (36-47); Lymphocytes # 0.6 10^3/uL (0.8-4.8); Lymphocytes % 9.3 %; Mean Platelet Volume 9.4 fL (7.4-10.4); Monocytes # 0.6 10^3/uL (0.2-0.9); Monocytes % 9.4 %; Neutrophils # 5.32 10^3/uL (1.8-7.7); Neutrophils % 79.4 %; Nucleated Red Blood Cells % 0 %; Platelet Count 171 10^3/cmm (157-399); Red Blood Count 3.94 10^6/uL (3.85-5.65); Red Cell Distribution Width 17.9 % (12.1-15.1)
[2024-10-05 09:40] LABS: Alanine Aminotransferase 8 U/L (0-33); Albumin Level 3.9 g/dL (3.5-5.2); Alkaline Phosphatase 90 U/L (35-105); Anion Gap 12.3 (5-19); Aspartate Amino Transferase 16 U/L (0-32); Blood Urea Nitrogen 12 mg/dL (8-23); Calcium 9.6 mg/dL (8.5-10.5); Carbon Dioxide 27 mmol/L (22-29); Chloride 103 mmol/L (98-107); Creatinine Clr Calc Pharmacy 42.8029; Globulin 2.9 g/dL (1.3-4.6); Glucose 89 mg/dL (65-115); Osmolality Calculated 285 mOsm/kg (285-295); Potassium 4.3 mmol/L (3.5-5.1); Sodium 138 mmol/L (136-145); Total Bilirubin 0.5 mg/dL (0.15-1.2); Total Protein 6.8 g/dL (6.6-8.7)
--- NOTE | 2024-10-05 10:29 | ONCRAD EPV_ITS ---
Radiation Oncology Established Patient Visit Patient: Priscilla Taylor [id number] : 1945 Age: 79 Sex: Female Dictated by: Dr. Caroline Segura Date of Service: 10/05/2024 Current history: Patient returns today for her 1 month follow-up after completing radiation and chemotherapy for a non-small cell carcinoma of the lung. Her most recent CT scan has shown the mass in the lung has decreased from 2.2 by 1.8 down to 1.7 x 1.5. Subjectively she is in good spirits. She has regained her energy. Respiratory status remained stable. She has begun to experience some new aches and pains which she had not had during the course of her treatment due to the steroids that were administered. She also has some issues with the PICC line and is asking whether she can have this removed or perhaps moved to the other arm. Referring Physician(s) : Cam Gentile M.D. Diagnosis: C34.92 - Malignant neoplasm of unspecified part of left bronchus or lung, Diagnosed 07/06/2024 (Active) Radiotherapy to Date: Course: Lung 2023, Treatment Site: LT Lung, Ref. ID: [id number], Energy: 6X, Dose/Fx (cGy): 200, #Fx: 30 / 30, Dose Correction (cGy): 0, Total Dose Delivered (cGy): 6,000, Start Date: 07/29/2024, End Date: 09/10/2024, Elapsed Days: 43 Current History: Current Medications: Allergies: No Known Allergies Current Complaints / Review of Systems: . Vital Signs: Performed on 10/05/2024 9:03 AM BMI - 19.651 kg/m2, Height - 61 in, Weight - 104 lbs, Temperature - 98.7 f, Pulse - 73 /min, Respiration - 17 /min, O2 Sat - 98 %, Pain - 4, Fatigue - 0 and BP - 111/ 56 mm(hg)(/low). Physical Exam: General: Alert and oriented x 3. No acute distress. HEENT: Normocephalic, atraumatic. Extraocular Movements Intact: Pupils Equal, Round, Reactive to Light. . LUNGS: Respiratory rate is regular nonlabored HEART: Regular rate and rhythm, ABDOMEN: Patient is quite thin with minimal adipose tissue EXTREMITIES: No peripheral edema is identified. NEUROLOGIC: . Alert and orient x 3. Gait and speech within normal limits Performance Status: 100 Lab: None pending. Pathology: Primary, c34.92 - malignant neoplasm of unspecified part of left bronchus or lung, Diagnosed 07/06/2024 (active) . Imaging: See HPI Impression: Non-small cell carcinoma lung status post radiation and chemotherapy Plan: At this point she will be starting the immune therapy in the next month or so. She did ask whether her PICC line could be moved to the other arm if she needs to keep this in place. 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 At this point should be coming every 4 weeks for immune therapy and we will see her back on as-needed basis Signed by: 10/05/2024 10:27:24 AM <<Signature on File>> Time spent with patient: 20 CPT Code: CPT Code:
[2024-10-07] MEDS: sodium chloride 0.9% 250 ML 50 ML IV (10:40)
[2024-10-07] MEDS: durvalumab 1,500 MG in sodium chloride 0.9% 250 ML 280 MG IV (11:07)
[2024-10-07 12:16] VITALS: BP 107/52; PULSE 63; RESP 1; TEMP 36.3; O2SAT 97
== END 2024-10-10 23:59 | disposition home or self-care (01) ==
PROVIDERS: Nurse Practitioner Family; PCP Family Medicine; Visit Provider Radiology Radiation Oncology
DX: C34.12 Malignant neoplasm of upper lobe, left bronchus or lung; Z53.9 Procedure and treatment not carried out, unspecified reason; Z51.12 Encounter for antineoplastic immunotherapy; Z79.899 Other long term (current) drug therapy; E03.9 Hypothyroidism, unspecified
CPT/HCPCS: 36592; 71260; 74177; 80053; 84443; 85025; 96413; 99024; 99214; 99215; A4222; J7050; J9173

== ENCOUNTER 2024-11-05 09:30 | Oncology outpatient (recurring) (ONCR) | payer MEDICARE, SELFPAY ==
[2024-10-12 12:30] VITALS: BP 121/60; PULSE 80; RESP 16; TEMP 36.8; O2SAT 99
[2024-11-05 10:30] LABS: Basophils % 0.4 %; Eosinophils % 0.4 %; Hematocrit 42.7 % (36-47); Lymphocytes # 0.6 10^3/uL (0.8-4.8); Lymphocytes % 8.5 %; Mean Corpuscular HGB Conc 33.5 g/dL (30-55); Mean Corpuscular Hemoglobin 32.8 pg (27-33); Mean Corpuscular Volume 97.9 fl (85-98); Mean Platelet Volume 9.5 fL (7.4-10.4); Monocytes # 0.5 10^3/uL (0.2-0.9); Monocytes % 7.4 %; Neutrophils # 6.02 10^3/uL (1.8-7.7); Neutrophils % 82.9 %; Nucleated Red Blood Cells % 0 %; Platelet Count 174 10^3/cmm (157-399); Red Blood Count 4.36 10^6/uL (3.85-5.65); Red Cell Distribution Width 13.2 % (12.1-15.1); White Blood Count 7.27 10^3/uL (3.29-11.43)
[2024-11-05 10:55] LABS: Alanine Aminotransferase 8 U/L (0-33); Alkaline Phosphatase 91 U/L (35-105); Anion Gap 15.4 (5-19); Aspartate Amino Transferase 17 U/L (0-32); Blood Urea Nitrogen 14 mg/dL (8-23); Calcium 9.3 mg/dL (8.5-10.5); Carbon Dioxide 25 mmol/L (22-29); Chloride 101 mmol/L (98-107); Globulin 2.6 g/dL (1.3-4.6); Glucose 129 mg/dL (65-115); Osmolality Calculated 286 mOsm/kg (285-295); Potassium 4.4 mmol/L (3.5-5.1); Sodium 137 mmol/L (136-145); Thyroid Stimulating Hormone 2.65 uIU/mL (0.27-4.20); Total Bilirubin 0.5 mg/dL (0.15-1.2); Total Protein 6.6 g/dL (6.6-8.7)
[2024-11-05] MEDS: durvalumab 1,500 MG in sodium chloride 0.9% 250 ML 280 MG IV (12:52)
[2024-11-05 14:04] VITALS: BP 106/64; PULSE 71; RESP 17; TEMP 36.6; O2SAT 96
== END 2024-11-05 23:59 | disposition home or self-care (01) ==
PROVIDERS: Nurse Practitioner Family; PCP Family Medicine; Visit Provider Radiology Radiation Oncology
DX: Z53.9 Procedure and treatment not carried out, unspecified reason; D70.1 Agranulocytosis secondary to cancer chemotherapy; T45.1X5A Adverse effect of antineoplastic and immunosuppressive drugs, initial encounter; X58.XXXA Exposure to other specified factors, initial encounter; Z51.12 Encounter for antineoplastic immunotherapy; C34.12 Malignant neoplasm of upper lobe, left bronchus or lung
CPT/HCPCS: 36415; 80053; 84443; 85025; 96413; 99214; A4222; J7050; J9173

== ENCOUNTER 2024-12-03 10:00 | Oncology outpatient (recurring) (ONCR) | payer MEDICARE, SELFPAY ==
[2024-12-03 11:31] LABS: Basophils % 0.5 %; Eosinophils % 0.2 %; Hematocrit 43.6 % (36-47); Lymphocytes # 0.7 10^3/uL (0.8-4.8); Lymphocytes % 8.4 %; Mean Corpuscular HGB Conc 33.7 g/dL (30-55); Mean Corpuscular Hemoglobin 31.9 pg (27-33); Mean Corpuscular Volume 94.6 fl (85-98); Mean Platelet Volume 8.9 fL (7.4-10.4); Monocytes # 0.6 10^3/uL (0.2-0.9); Neutrophils # 7.19 10^3/uL (1.8-7.7); Neutrophils % 83.3 %; Nucleated Red Blood Cells % 0 %; Platelet Count 232 10^3/cmm (157-399); Red Blood Count 4.61 10^6/uL (3.85-5.65); Red Cell Distribution Width 12.5 % (12.1-15.1); White Blood Count 8.62 10^3/uL (3.29-11.43)
[2024-12-03 11:58] LABS: Alanine Aminotransferase 8 U/L (0-33); Albumin Level 4.1 g/dL (3.5-5.2); Alkaline Phosphatase 102 U/L (35-105); Anion Gap 15.2 (5-19); Aspartate Amino Transferase 17 U/L (0-32); Blood Urea Nitrogen 11 mg/dL (8-23); Calcium 9.5 mg/dL (8.5-10.5); Carbon Dioxide 27 mmol/L (22-29); Chloride 101 mmol/L (98-107); Globulin 2.8 g/dL (1.3-4.6); Glucose 96 mg/dL (65-115); Osmolality Calculated 287 mOsm/kg (285-295); Potassium 4.2 mmol/L (3.5-5.1); Sodium 139 mmol/L (136-145); Total Bilirubin 0.4 mg/dL (0.15-1.2); Total Protein 6.9 g/dL (6.6-8.7)
[2024-12-03] MEDS: durvalumab 1,500 MG in sodium chloride 0.9% 250 ML 280 MG IV (12:42)
[2024-12-03 14:06] VITALS: BP 109/58; PULSE 65; TEMP 36.7; O2SAT 95
== END 2024-12-11 23:59 | disposition home or self-care (01) ==
PROVIDERS: Nurse Practitioner; PCP Family Medicine; Visit Provider Radiology Radiation Oncology
DX: Z51.12 Encounter for antineoplastic immunotherapy (principal); C34.12 Malignant neoplasm of upper lobe, left bronchus or lung; F17.200 Nicotine dependence, unspecified, uncomplicated; Z85.3 Personal history of malignant neoplasm of breast; E03.9 Hypothyroidism, unspecified; M25.511 Pain in right shoulder; D70.1 Agranulocytosis secondary to cancer chemotherapy; T45.1X5A Adverse effect of antineoplastic and immunosuppressive drugs, initial encounter; Z92.21 Personal history of antineoplastic chemotherapy; Z92.3 Personal history of irradiation; Z90.12 Acquired absence of left breast and nipple; Z79.899 Other long term (current) drug therapy
CPT/HCPCS: 80053; 84443; 85025; 96413; 96415; 99213; A4222; J7050; J9173

== ENCOUNTER 2025-01-07 09:30 | Oncology outpatient (recurring) (ONCR) | payer MEDICARE, SELFPAY ==
--- NOTE | 2024-12-16 08:00 | NM_ITS ---
WS: [id number] NUCLEAR MEDICINE WHOLE BODY BONE SCAN HISTORY: lung cancer, pain in LEFT shoulder and RIGHT knee. COMPARISON: Prior recent CT 09/25/2024, PET/CT 05/18/2024 TECHNIQUE: The patient was injected with 25.0 mCi of Technetium 99m HDP and serial whole-body scintigrams have been performed with anterior and posterior images. Single focus of intermediate uptake involving the LEFT sixth medial rib adjacent to the vertebral body. No additional rib lesions are identified. No corresponding abnormality noted on the recent chest CT from 09/25/2024. Mild AC joint arthritis. Mild degenerative changes at the carpal bones. Prior RIGHT knee arthroplasty. Normal soft tissue and renal uptake. Curvilinear area of increased uptake extending from the RIGHT renal pelvis inferiorly. Patient does have dilated ureters and this is excreted contrast within the ureter. Ureteral dilatation has been previously described on multiple CTs. NM/NM bone scan whole body* [id number] IMPRESSION: 1. Single focus of increased uptake involving the posterior medial LEFT sixth rib at the costovertebral angle. Only a single rib lesion is identified. This c ould potentially represent a single metastatic site but facet joint arthritis a nd fracture within the differential. No abnormality was noted on the chest CT o f 09/25/2024. 2. Dilated RIGHT ureter.
--- NOTE | 2025-01-01 10:00 | CTR_ITS ---
PROCEDURE INFORMATION: Exam: CT Chest With Contrast; Diagnostic Exam date and time: 01/01/2025 9:58 AM Age: 79 years old Clinical indication: Condition or disease; Lung condition and disease; Cancer of the lung; Bilateral; Unspecified; Lung CA S/P chemo; Additional info: Lung cancer, compare to previous TECHNIQUE: Imaging protocol: Diagnostic computed tomography of the chest with contrast. Radiation optimization: All CT scans at this facility use at least one of these dose optimization techniques: automated exposure control; mA and/or kV adjustment per patient size (includes targeted exams where dose is matched to clinical indication); or iterative reconstruction. Contrast material: OMNI 350; Contrast volume: 100 ml; Contrast route: INTRAVENOUS (IV); COMPARISON: CT chest abdpel w/*[id number] 09/25/2024 9:59 AM RADIATION DOSE METRICS: Total DLP (mGy-cm): 435.62 FINDINGS: Thyroid: The thyroid gland is normal. Trachea: Airways are patent. Lungs: Calcified granulomas throughout the lungs are benign. Shrinking 1.4 x 1.6 cm cavitating mass in the left upper lobe (previously 2.3 x 2.2 cm), with surrounding architectural distortion and scarring. Shrinking left lower lobe lung nodule, which previously measured 1.1 x 1.3 cm, and currently resembles a focal area of nodular scarring which measures about 9 mm x 6 mm. No other new or concerning lung nodules. No consolidations. Mild centrilobular emphysema. Pleural spaces: New small layering left pleural effusion. A new 2.3 x 1.8 cm pleural-based masslike consolidation in the left lower lobe with a pleural tail has the same enhancement as the adjacent atelectatic lung parenchyma, and is therefore consistent with an area of round/nodular atelectasis or scar. No right pleural effusion. There is no evidence of pneumothorax. Heart: No cardiomegaly. No pericardial thickening or effusion. Coronary arteries: There is mild atherosclerotic calcification of the coronary arteries. Mediastinal space: Scattered calcified granulomas throughout the mediastinum are benign. Lymph nodes: Shrinking mediastinal and left hilar lymph nodes. For example, a 1.4 cm AP window lymph node previously measured 2.3 cm, a 2.2 cm subcarinal lymph node previously measured 3.1 cm, and a 1.5 cm left hilar lymph node previously measured 2.2 cm. Many of the lymph nodes also have extensive necrosis. No other adenopathy. Vasculature: Moderate diffuse calcific atherosclerosis of the aorta. No aortic aneurysms. No acute pathology in the aorta. The pulmonary arteries are normal in course and caliber. Bones/joints: Bone demineralization. Mild multilevel degenerative changes of the spine. No acute skeletal abnormality or aggressive osseous lesion. Soft tissues: Multiple surgical clips in the left axilla. No acute soft tissue findings. Other findings: Right hilar calcified granulomas, benign. PROCEDURE INFORMATION: Exam: CT Abdomen And Pelvis With Contrast Exam date and time: 01/01/2025 9:58 AM Age: 79 years old Clinical indication: Condition or disease; Lung condition and disease; Cancer of the lung; Bilateral; Unspecified; Lung CA S/P chemo; Additional info: Lung cancer, compare to previous TECHNIQUE: Imaging protocol: Computed tomography of the abdomen and pelvis with contrast. Radiation optimization: All CT scans at this facility use at least one of these dose optimization techniques: automated exposure control; mA and/or kV adjustment per patient size (includes targeted exams where dose is matched to clinical indication); or iterative reconstruction. Contrast material: OMNI 350; Contrast volume: 100 ml; Contrast route: INTRAVENOUS (IV); COMPARISON: CT chest abdpel w/*[id number] 09/25/2024 9:59 AM RADIATION DOSE METRICS: Total DLP (mGy-cm): 435.62 FINDINGS: Liver: Single calcified liver granuloma is benign. Stable benign left hepatic lobe cysts, measuring up to 9 mm. No liver masses. Gallbladder and biliary ducts: Gallbladder is normal. There is no evidence of biliary ductal dilation. Pancreas: There are punctate pancreatic parenchymal calcifications, consistent with chronic pancreatitis. There is no pancreatic duct dilation. No pancreatic masses. Spleen: The spleen demonstrates punctate calcifications, consistent with remote granulomatous organism exposure. No splenic lesions. Adrenal glands: Adrenal glands are normal. Kidneys and ureters: Subcentimeter right renal hypodense lesions are too small to characterize but most probably benign representing cysts. Consider correlation with nonemergent ultrasound. Subcentimeter left renal hypodense lesions are too small to characterize but most probably benign representing cysts. Consider correlation with nonemergent ultrasound. Single nonobstructive left renal collecting system stone, measuring 0.8 cm. Bilateral extrarenal pelvises, normal variant. Stable left kidney lower pole cortical scarring. There is no evidence of hydronephrosis. No hydroureter. Stomach and bowel: Mild constipation. There is no evidence of intestinal obstruction. No bowel thickening. Appendix: A normal appendix is identified. Intraperitoneal space: There is no evidence of free intraperitoneal or pelvic fluid. No intraperitoneal fluid collections. There is no free intraperitoneal air. Vasculature: Prominence of the pelvic vessels, as can be seen with pelvic congestion. Moderate atherosclerotic calcification of the arterial vasculature. No aortic aneurysms. Portal venous system is patent. Lymph nodes: There is no evidence of lymphadenopathy. Urinary bladder: The bladder is normal. Reproductive: Reproductive organs are unremarkable as visualized. Bones/joints: Bone demineralization. Moderate multilevel degenerative changes of the spine. No acute skeletal abnormality or aggressive osseous lesion. Soft tissues: No acute soft tissue findings. CT/CT chest abdpel w/*[id number] IMPRESSION: 1. Shrinking mediastinal and left hilar lymph nodes. For example, a 1.4 cm AP window lymph node previously measured 2.3 cm, a 2.2 cm subcarinal lymph node previously measured 3.1 cm, and a 1.5 cm left hilar lymph node previously measured 2.2 cm. Many of the lymph nodes also have extensive necrosis. 2. New small layering left pleural effusion. 3. Shrinking 1.4 x 1.6 cm cavitating mass in the left upper lobe (previously 2.3 x 2.2 cm), with surrounding architectural distortion and scarring. 4. A new 2.3 x 1.8 cm pleural-based masslike consolidation in the left lower lobe with a pleural tail has the same enhancement as the adjacent atelectatic lung parenchyma, and is therefore consistent with an area of round/nodular atelectasis or scar. 5. In summary, disease improvement since September 2024. IMPRESSION: 1. No evidence for abdominopelvic metastasis. 2. Incidental findings as above. COMMENTS: Consistent with the [employer]'s Incidental Findings Committee white paper (J Am Stefano Radiol 2018): Any incidental renal lesion less than 1 cm or classified as too small to characterize, or any incidental cystic renal lesion characterized as simple-appearing, is likely benign. No follow-up imaging is recommended for these lesions per consensus recommendations based on imaging criteria.
[2025-01-01] MEDS: iohexol 350 mg/mL 500 mL Btl (per mL) PO (10:16)
[2025-01-01] MEDS: iohexol 350 mg/mL 500 mL Btl (per mL) IV (10:16)
[2025-01-07 09:23] LABS: Basophils % 0.4 %; Eosinophils # 0.1 10^3/uL (0.0-0.8); Eosinophils % 0.6 %; Hematocrit 43.3 % (36-47); Lymphocytes # 0.8 10^3/uL (0.8-4.8); Mean Corpuscular HGB Conc 33.9 g/dL (30-55); Mean Corpuscular Hemoglobin 31.6 pg (27-33); Mean Corpuscular Volume 93.1 fl (85-98); Mean Platelet Volume 9.9 fL (7.4-10.4); Monocytes # 0.6 10^3/uL (0.2-0.9); Monocytes % 6.4 %; Neutrophils # 7.93 10^3/uL (1.8-7.7); Neutrophils % 84.2 %; Nucleated Red Blood Cells % 0 %; Platelet Count 163 10^3/cmm (157-399); Red Blood Count 4.65 10^6/uL (3.85-5.65); Red Cell Distribution Width 13.7 % (12.1-15.1); White Blood Count 9.42 10^3/uL (3.29-11.43)
[2025-01-07 09:53] LABS: Alanine Aminotransferase 11 U/L (0-33); Albumin Level 4.1 g/dL (3.5-5.2); Alkaline Phosphatase 86 U/L (35-105); Anion Gap 14.3 (5-19); Aspartate Amino Transferase 19 U/L (0-32); Blood Urea Nitrogen 13 mg/dL (8-23); Calcium 9.2 mg/dL (8.5-10.5); Carbon Dioxide 26 mmol/L (22-29); Chloride 103 mmol/L (98-107); Free T4 Free Thyroxine 1.48 ng/dL (0.82-1.77); Globulin 2.8 g/dL (1.3-4.6); Glucose 93 mg/dL (65-115); Lactate Dehydrogenase 152 U/L (135-214); Osmolality Calculated 288 mOsm/kg (285-295); Potassium 4.3 mmol/L (3.5-5.1); Sodium 139 mmol/L (136-145); Thyroid Stimulating Hormone 3.54 uIU/mL (0.27-4.20); Total Bilirubin 0.5 mg/dL (0.15-1.2); Total Protein 6.9 g/dL (6.6-8.7)
[2025-01-07 11:22] VITALS: BP 103/61; PULSE 62; RESP 18; TEMP 37; O2SAT 93
[2025-01-07] MEDS: durvalumab 1,500 MG in sodium chloride 0.9% 250 ML 280 MG IV (12:15)
[2025-01-07 13:27] VITALS: BP 100/55; PULSE 66; RESP 17; TEMP 36.2; O2SAT 96
== END 2025-01-07 23:59 | disposition home or self-care (01) ==
PROVIDERS: PCP Family Medicine; Visit Provider Internal Medicine
DX: Z53.9 Procedure and treatment not carried out, unspecified reason; Z51.12 Encounter for antineoplastic immunotherapy; C34.12 Malignant neoplasm of upper lobe, left bronchus or lung; E03.9 Hypothyroidism, unspecified; Z79.899 Other long term (current) drug therapy; Z72.0 Tobacco use; Z85.3 Personal history of malignant neoplasm of breast; Z90.12 Acquired absence of left breast and nipple; M25.511 Pain in right shoulder; Z92.3 Personal history of irradiation; Z92.21 Personal history of antineoplastic chemotherapy
CPT/HCPCS: 71260; 74177; 78306; 80053; 83615; 84439; 84443; 84481; 85025; 96413; 99213; A4222; A9561; J7050; J9173

== ENCOUNTER 2025-02-04 09:58 | Oncology outpatient (recurring) (ONCR) | payer MEDICARE, SELFPAY ==
[2025-02-04 10:32] LABS: Basophils # 0.1 10^3/uL (0.0-0.1); Basophils % 0.5 %; Eosinophils # 0.1 10^3/uL (0.0-0.8); Eosinophils % 0.5 %; Hematocrit 44.4 % (36-47); Lymphocytes # 0.6 10^3/uL (0.8-4.8); Lymphocytes % 4.9 %; Mean Corpuscular HGB Conc 33.1 g/dL (30-55); Mean Corpuscular Hemoglobin 31.7 pg (27-33); Mean Corpuscular Volume 95.7 fl (85-98); Mean Platelet Volume 9.8 fL (7.4-10.4); Monocytes # 0.7 10^3/uL (0.2-0.9); Neutrophils # 11.48 10^3/uL (1.8-7.7); Neutrophils % 88.7 %; Nucleated Red Blood Cells % 0 %; Platelet Count 160 10^3/cmm (157-399); Red Blood Count 4.64 10^6/uL (3.85-5.65); Red Cell Distribution Width 15.2 % (12.1-15.1); White Blood Count 12.93 10^3/uL (3.29-11.43)
[2025-02-04 10:52] LABS: Alanine Aminotransferase 15 U/L (0-33); Albumin Level 4.2 g/dL (3.5-5.2); Alkaline Phosphatase 68 U/L (35-105); Aspartate Amino Transferase 17 U/L (0-32); Blood Urea Nitrogen 15 mg/dL (8-23); Calcium 9.5 mg/dL (8.5-10.5); Carbon Dioxide 27 mmol/L (22-29); Chloride 103 mmol/L (98-107); Globulin 2.3 g/dL (1.3-4.6); Glucose 98 mg/dL (65-115); Lactate Dehydrogenase 144 U/L (135-214); Osmolality Calculated 289 mOsm/kg (285-295); Sodium 139 mmol/L (136-145); Total Bilirubin 0.7 mg/dL (0.15-1.2); Total Protein 6.5 g/dL (6.6-8.7)
[2025-02-04] MEDS: durvalumab 1,500 MG in sodium chloride 0.9% 250 ML 280 MG IV (13:14)
[2025-02-04 14:23] VITALS: BP 108/58; PULSE 70; RESP 18; TEMP 37.1; O2SAT 96
== END 2025-02-04 23:59 | disposition home or self-care (01) ==
PROVIDERS: PCP Family Medicine; Visit Provider Internal Medicine
DX: Z51.12 Encounter for antineoplastic immunotherapy (principal); C34.12 Malignant neoplasm of upper lobe, left bronchus or lung; D70.1 Agranulocytosis secondary to cancer chemotherapy; T45.1X5A Adverse effect of antineoplastic and immunosuppressive drugs, initial encounter; E03.9 Hypothyroidism, unspecified; M25.511 Pain in right shoulder; Z90.12 Acquired absence of left breast and nipple; Z92.3 Personal history of irradiation; Z79.52 Long term (current) use of systemic steroids; Z79.899 Other long term (current) drug therapy
CPT/HCPCS: 80053; 83615; 85025; 96413; 99213; J7050; J9173

== ENCOUNTER 2025-03-04 09:03 | Oncology outpatient (recurring) (ONCR) | payer MEDICARE, SELFPAY ==
[2025-03-04 09:29] LABS: Basophils # 0.1 10^3/uL (0.0-0.1); Basophils % 0.5 %; Eosinophils # 0.1 10^3/uL (0.0-0.8); Eosinophils % 0.7 %; Hematocrit 50.5 % (36-47); Lymphocytes # 0.9 10^3/uL (0.8-4.8); Lymphocytes % 9.3 %; Mean Corpuscular HGB Conc 33.3 g/dL (30-55); Mean Corpuscular Hemoglobin 32.7 pg (27-33); Mean Corpuscular Volume 98.2 fl (85-98); Mean Platelet Volume 9.9 fL (7.4-10.4); Monocytes # 0.7 10^3/uL (0.2-0.9); Monocytes % 7.2 %; Neutrophils # 7.85 10^3/uL (1.8-7.7); Neutrophils % 81.7 %; Nucleated Red Blood Cells % 0 %; Platelet Count 169 10^3/cmm (157-399); Red Blood Count 5.14 10^6/uL (3.85-5.65); Red Cell Distribution Width 15.2 % (12.1-15.1); White Blood Count 9.61 10^3/uL (3.29-11.43)
[2025-03-04 09:40] LABS: Alanine Aminotransferase 15 U/L (0-33); Albumin Level 4.6 g/dL (3.5-5.2); Alkaline Phosphatase 80 U/L (35-105); Anion Gap 12.7 (5-19); Aspartate Amino Transferase 22 U/L (0-32); Blood Urea Nitrogen 15 mg/dL (8-23); Calcium 9.8 mg/dL (8.5-10.5); Carbon Dioxide 31 mmol/L (22-29); Chloride 101 mmol/L (98-107); Globulin 2.9 g/dL (1.3-4.6); Glucose 110 mg/dL (65-115); Lactate Dehydrogenase 187 U/L (135-214); Osmolality Calculated 293 mOsm/kg (285-295); Potassium 3.7 mmol/L (3.5-5.1); Sodium 141 mmol/L (136-145); Total Bilirubin 0.7 mg/dL (0.15-1.2); Total Protein 7.5 g/dL (6.6-8.7)
[2025-03-04] MEDS: durvalumab 1,500 MG in sodium chloride 0.9% 250 ML 280 MG IV (11:16)
[2025-03-04 12:36] VITALS: BP 108/62; PULSE 71; RESP 17; TEMP 36.9
== END 2025-03-04 23:59 | disposition home or self-care (01) ==
PROVIDERS: PCP Family Medicine; Visit Provider Internal Medicine
DX: Z51.12 Encounter for antineoplastic immunotherapy (principal); C34.12 Malignant neoplasm of upper lobe, left bronchus or lung; Z85.3 Personal history of malignant neoplasm of breast; F17.200 Nicotine dependence, unspecified, uncomplicated; D70.1 Agranulocytosis secondary to cancer chemotherapy; T45.1X5A Adverse effect of antineoplastic and immunosuppressive drugs, initial encounter; G47.9 Sleep disorder, unspecified; Z79.52 Long term (current) use of systemic steroids; Z79.899 Other long term (current) drug therapy; Z90.12 Acquired absence of left breast and nipple
CPT/HCPCS: 80053; 83615; 85025; 96413; 99214; A4222; J7050; J9173

== ENCOUNTER → 2025-03-19 09:11 | Outpatient (BNVA) | payer MEDICARE, SELFPAY | PROVIDERS: PCP Family Medicine; Visit Provider Nurse Practitioner Family | DX: I48.91 Unspecified atrial fibrillation (principal); I25.10 Atherosclerotic heart disease of native coronary artery without angina pectoris; I10 Essential (primary) hypertension; Z72.0 Tobacco use | CPT/HCPCS: 99213 ==

== ENCOUNTER 2025-04-08 08:54 | Oncology outpatient (recurring) (ONCR) | payer MEDICARE, SELFPAY ==
[2025-04-08 09:35] LABS: Basophils # 0.1 10^3/uL (0.0-0.1); Basophils % 0.6 %; Eosinophils # 0.1 10^3/uL (0.0-0.8); Eosinophils % 0.5 %; Hematocrit 47.9 % (36-47); Lymphocytes # 0.6 10^3/uL (0.8-4.8); Lymphocytes % 4.6 %; Mean Corpuscular HGB Conc 34.2 g/dL (30-55); Mean Corpuscular Hemoglobin 33.5 pg (27-33); Mean Platelet Volume 10.3 fL (7.4-10.4); Monocytes # 0.6 10^3/uL (0.2-0.9); Monocytes % 5.1 %; Neutrophils # 10.82 10^3/uL (1.8-7.7); Neutrophils % 88.8 %; Nucleated Red Blood Cells % 0 %; Platelet Count 168 10^3/cmm (157-399); Red Blood Count 4.89 10^6/uL (3.85-5.65); Red Cell Distribution Width 13.6 % (12.1-15.1); White Blood Count 12.18 10^3/uL (3.29-11.43)
[2025-04-08 10:05] LABS: Alanine Aminotransferase 15 U/L (0-33); Albumin Level 4.4 g/dL (3.5-5.2); Alkaline Phosphatase 83 U/L (35-105); Anion Gap 14.2 (5-19); Aspartate Amino Transferase 21 U/L (0-32); Blood Urea Nitrogen 13 mg/dL (8-23); Calcium 9.9 mg/dL (8.5-10.5); Carbon Dioxide 29 mmol/L (22-29); Chloride 102 mmol/L (98-107); Creatinine Clr Calc Pharmacy 44.2727; Globulin 2.8 g/dL (1.3-4.6); Glucose 118 mg/dL (65-115); Lactate Dehydrogenase 180 U/L (135-214); Osmolality Calculated 293 mOsm/kg (285-295); Potassium 4.2 mmol/L (3.5-5.1); Sodium 141 mmol/L (136-145); Thyroid Stimulating Hormone 3.58 uIU/mL (0.27-4.20); Total Bilirubin 0.6 mg/dL (0.15-1.2); Total Protein 7.2 g/dL (6.6-8.7)
[2025-04-08] MEDS: durvalumab 1,500 MG in sodium chloride 0.9% 250 ML 280 MG IV (11:31)
[2025-04-08 12:35] VITALS: BP 118/69; PULSE 70
== END 2025-04-10 23:59 | disposition home or self-care (01) ==
PROVIDERS: Nurse Practitioner Family; PCP Family Medicine; Visit Provider Internal Medicine
DX: Z53.9 Procedure and treatment not carried out, unspecified reason (principal); Z51.12 Encounter for antineoplastic immunotherapy; C34.12 Malignant neoplasm of upper lobe, left bronchus or lung; Z85.3 Personal history of malignant neoplasm of breast; M25.511 Pain in right shoulder; D70.1 Agranulocytosis secondary to cancer chemotherapy; T45.1X5A Adverse effect of antineoplastic and immunosuppressive drugs, initial encounter; E03.9 Hypothyroidism, unspecified; M89.9 Disorder of bone, unspecified; Z72.0 Tobacco use; Z90.12 Acquired absence of left breast and nipple
CPT/HCPCS: 80053; 83615; 84443; 85025; 96413; 99214; A4222; J7050; J9173

== ENCOUNTER 2025-05-06 08:53 | Oncology outpatient (recurring) (ONCR) | payer MEDICARE, SELFPAY ==
--- NOTE | 2025-04-22 08:00 | NM_ITS ---
WS: [id number] NUCLEAR MEDICINE BONE SCAN Radiopharmaceutical: 24.4 Tc-99m MDP mCi IV Injection site: Antecubital Postinjection imaging delay: 1 hr CLINICAL INFORMATION: restaging COMPARISON: 12/16/2024 FINDINGS: Bone lesions: Stable focal metastatic lesion in the LEFT T6 transverse process and facet. This is also seen on the recent CT. No evidence of new or progressive disease. Soft tissue contours: Normal. Kidneys: Normal. Other findings: RIGHT TKA. NM/NM bone scan whole body* [id number] IMPRESSION: 1. Stable focal metastatic lesion in the LEFT T6 transverse process and facet also seen on the recent CT. 2. No other abnormal foci of uptake
[2025-04-22] MEDS: iohexol 350 mg/mL 500 mL Btl (per mL) PO (09:39)
[2025-04-22] MEDS: iohexol 350 mg/mL 500 mL Btl (per mL) IV (09:40)
--- NOTE | 2025-04-22 12:00 | CTR_ITS ---
PROCEDURE INFORMATION: Exam: CT Chest With Contrast; Diagnostic Exam date and time: 04/22/2025 9:21 AM Age: 80 years old Clinical indication: Prior oncological surgery - left breast removed. 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 Yang patient needs this done on 04/22/25 TECHNIQUE: Imaging protocol: Diagnostic computed tomography of the chest with contrast. Radiation optimization: All CT scans at this facility use at least one of these dose optimization techniques: automated exposure control; mA and/or kV adjustment per patient size (includes targeted exams where dose is matched to clinical indication); or iterative reconstruction. Contrast material: OMNIPAQUE 350; Contrast volume: 100 ml; Contrast route: INTRAVENOUS (IV); Other contrast: Oral, omnipaque 350, 50; COMPARISON: 1. CT chest abdpel w/*[id number] 01/01/2025 9:[address] chest abdpel w/*[id number] 09/25/2024 9:59 AM 3. PT PET skull to thigh SUBS [id number] 06/16/2024 12:[address] abdomen wo/w con [id number] 04/03/2024 11:33 AM 5. PT PET skulltothigh INITIAL [id number] 10/29/2023 12:11 PM RADIATION DOSE METRICS: Total DLP (mGy-cm): 442.74 FINDINGS: Lungs: Slight interval decrease in size of lingular mass with largest component measuring 1.7 x 1.1 cm, previously 1.9 x 1.2 cm. Slight interval increase in size of subpleural left lower lobe pulmonary nodule measuring 11 x 11 mm on series , previously 9 x 9 mm. Interval resolution of previously seen atelectasis in the left lower lobe. Pleural spaces: Decreased trace left pleural effusion. Heart: Unremarkable. No cardiomegaly. No pericardial effusion. Coronary arteries: Coronary artery calcifications are present. Esophagus: Diffuse circumferential esophageal wall thickening suggestive of esophagitis. Lymph nodes: Decreased mediastinal lymphadenopathy with largest node in the subcarinal region measuring approximately 2.5 x 1.7 cm, previously 2.7 x 2.0 cm. Decreased left hilar lymphadenopathy with largest node measuring 1.4 x 1.2 cm, previously 1.7 x 1.8 cm. Vasculature: Aortic atherosclerotic disease is seen without evidence of aneurysm. Bones/joints: Stable blastic metastasis in the left T6 transverse process. Soft tissues: Status post left mastectomy and axillary lymph node dissection. PROCEDURE INFORMATION: Exam: CT Abdomen And Pelvis With Contrast Exam date and time: 04/22/2025 9:21 AM Age: 80 years old Clinical indication: Prior oncological surgery - left breast removed. 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 Yang patient needs this done on 04/22/25 TECHNIQUE: Imaging protocol: Computed tomography of the abdomen and pelvis with contrast. Radiation optimization: All CT scans at this facility use at least one of these dose optimization techniques: automated exposure control; mA and/or kV adjustment per patient size (includes targeted exams where dose is matched to clinical indication); or iterative reconstruction. Contrast material: OMNIPAQUE 350; Contrast volume: 100 ml; Contrast route: INTRAVENOUS (IV); Other contrast: Oral, omnipaque 350, 50; COMPARISON: PT PET skull to thigh SUBS [id number] 06/16/2024 12:07 PM RADIATION DOSE METRICS: Total DLP (mGy-cm): 442.74 FINDINGS: Liver: Stable small left hepatic cyst. No new hepatic lesion. Gallbladder and biliary ducts: Normal. No calcified stones. No ductal dilation. Pancreas: Diffuse coarse pancreatic calcifications consistent with chronic pancreatitis. Spleen: Normal. No splenomegaly. Adrenal glands: Normal. No mass. Kidneys and ureters: Left renal cortical scarring. Nonspecific low-density foci of the kidneys statistically favor benign cysts, no follow-up imaging is recommended, as large as 6 mm. Bilateral nonobstructing renal calculi measuring up to 11 mm on the left. Stomach and bowel: Unremarkable. No obstruction. No mucosal thickening. Appendix: No evidence of appendicitis. Intraperitoneal space: Unremarkable. No free air. No significant fluid collection. Vasculature: Aortoiliac atherosclerotic disease is seen without evidence of aneurysm. Lymph nodes: Unremarkable. No enlarged lymph nodes. Urinary bladder: Unremarkable as visualized. Reproductive: Unremarkable as visualized. Bones/joints: Unremarkable. No acute fracture. Soft tissues: Unremarkable. CT/CT chest abdpel w/*[id number] IMPRESSION: 1. Decreased mediastinal lymphadenopathy with largest node in the subcarinal region measuring approximately 2.5 x 1.7 cm, previously 2.7 x 2.0 cm. 2. Decreased left hilar lymphadenopathy with largest node measuring 1.4 x 1.2 cm, previously 1.7 x 1.8 cm. 3. Slight interval decrease in size of lingular mass with largest component measuring 1.7 x 1.1 cm, previously 1.9 x 1.2 cm. 4. Slight interval increase in size of subpleural left lower lobe pulmonary nodule measuring 11 x 11 mm on series 346, previously 9 x 9 mm. 5. Interval resolution of previously seen atelectasis in the left lower lobe. 6. Stable blastic metastasis in the left T6 transverse process. 7. Diffuse circumferential esophageal wall thickening suggestive of esophagitis. IMPRESSION: 1. Bilateral nonobstructing renal calculi measuring up to 11 mm on the left. 2. No evidence of new or progressive malignancy in the abdomen or pelvis. COMMENTS: Consistent with the [employer]'s Incidental Findings Committee white paper (J Am Stefano Radiol 2018): Any incidental renal lesion less than 1 cm or classified as too small to characterize, or any incidental cystic renal lesion characterized as simple-appearing, is likely benign. No follow-up imaging is recommended for these lesions per consensus recommendations based on imaging criteria.
[2025-05-06 09:35] LABS: Basophils # 0.1 10^3/uL (0.0-0.1); Basophils % 0.6 %; Eosinophils # 0.1 10^3/uL (0.0-0.8); Eosinophils % 0.6 %; Hematocrit 47.5 % (36-47); Lymphocytes # 0.6 10^3/uL (0.8-4.8); Lymphocytes % 4.8 %; Mean Corpuscular HGB Conc 33.5 g/dL (30-55); Mean Corpuscular Hemoglobin 33.2 pg (27-33); Mean Corpuscular Volume 99.2 fl (85-98); Monocytes # 0.7 10^3/uL (0.2-0.9); Monocytes % 5.5 %; Neutrophils % 87.9 %; Nucleated Red Blood Cells % 0 %; Platelet Count 160 10^3/cmm (157-399); Red Blood Count 4.79 10^6/uL (3.85-5.65); Red Cell Distribution Width 13.3 % (12.1-15.1); White Blood Count 12.62 10^3/uL (3.29-11.43)
[2025-05-06 10:00] LABS: Alanine Aminotransferase 17 U/L (0-33); Albumin Level 4.2 g/dL (3.5-5.2); Alkaline Phosphatase 77 U/L (35-105); Anion Gap 14.2 (5-19); Aspartate Amino Transferase 21 U/L (0-32); Blood Urea Nitrogen 14 mg/dL (8-23); Calcium 9.7 mg/dL (8.5-10.5); Carbon Dioxide 31 mmol/L (22-29); Chloride 102 mmol/L (98-107); Globulin 2.9 g/dL (1.3-4.6); Glucose 90 mg/dL (65-115); Osmolality Calculated 296 mOsm/kg (285-295); Potassium 4.2 mmol/L (3.5-5.1); Sodium 143 mmol/L (136-145); Thyroid Stimulating Hormone 3.05 uIU/mL (0.27-4.20); Total Bilirubin 0.6 mg/dL (0.15-1.2); Total Protein 7.1 g/dL (6.6-8.7)
[2025-05-06] MEDS: durvalumab 1,500 MG in sodium chloride 0.9% 250 ML 280 MG IV (10:31)
[2025-05-06 11:37] VITALS: BP 112/63; PULSE 69; RESP 18; TEMP 36.7; O2SAT 97
== END 2025-05-06 23:59 | disposition home or self-care (01) ==
PROVIDERS: PCP Family Medicine; Visit Provider Nurse Practitioner Family
DX: Z51.12 Encounter for antineoplastic immunotherapy (principal); C34.12 Malignant neoplasm of upper lobe, left bronchus or lung; E03.9 Hypothyroidism, unspecified; M25.511 Pain in right shoulder; Z90.12 Acquired absence of left breast and nipple; R03.0 Elevated blood-pressure reading, without diagnosis of hypertension; Z92.3 Personal history of irradiation; Z72.0 Tobacco use; Z85.3 Personal history of malignant neoplasm of breast; Z79.899 Other long term (current) drug therapy; Z92.21 Personal history of antineoplastic chemotherapy
CPT/HCPCS: 71260; 74177; 78306; 80053; 84443; 85025; 96413; 99214; A4222; A9561; J7050; J9173

== ENCOUNTER 2025-06-03 09:08 | Oncology outpatient (recurring) (ONCR) | payer MEDICARE, SELFPAY ==
[2025-06-03 09:27] LABS: Hematocrit 45.8 % (36-47); Hemoglobin 15.70 g/dL (11.27-16.99); Mean Corpuscular HGB Conc 34.3 g/dL (30-55); Mean Corpuscular Hemoglobin 33.8 pg (27-33); Mean Corpuscular Volume 98.5 fl (85-98); Nucleated Red Blood Cells % 0 %; Platelet Count 168 10^3/cmm (157-399); Red Blood Count 4.65 10^6/uL (3.85-5.65); White Blood Count 10.51 10^3/uL (3.29-11.43)
[2025-06-03 09:56] LABS: Alanine Aminotransferase 13 U/L (0-33); Albumin Level 4.3 g/dL (3.5-5.2); Alkaline Phosphatase 74 U/L (35-105); Anion Gap 16.4 (5-19); Aspartate Amino Transferase 19 U/L (0-32); Blood Urea Nitrogen 15 mg/dL (8-23); Calcium 9.6 mg/dL (8.5-10.5); Carbon Dioxide 26 mmol/L (22-29); Chloride 102 mmol/L (98-107); Creatinine Clr Calc Pharmacy 43.7077; Globulin 2.6 g/dL (1.3-4.6); Glucose 102 mg/dL (65-115); Osmolality Calculated 291 mOsm/kg (285-295); Potassium 4.4 mmol/L (3.5-5.1); Sodium 140 mmol/L (136-145); Thyroid Stimulating Hormone 3.68 uIU/mL (0.27-4.20); Total Protein 6.9 g/dL (6.6-8.7)
[2025-06-03] MEDS: durvalumab 1,500 MG in sodium chloride 0.9% 250 ML 280 MG IV (11:34)
[2025-06-03 12:46] VITALS: BP 132/68; PULSE 68; RESP 16; TEMP 36.6; O2SAT 96
== END 2025-06-03 23:59 | disposition home or self-care (01) ==
PROVIDERS: Internal Medicine; PCP Family Medicine; Visit Provider Nurse Practitioner Family
DX: Z51.12 Encounter for antineoplastic immunotherapy (principal); C34.12 Malignant neoplasm of upper lobe, left bronchus or lung; R03.0 Elevated blood-pressure reading, without diagnosis of hypertension; F17.200 Nicotine dependence, unspecified, uncomplicated; Z92.3 Personal history of irradiation; Z92.21 Personal history of antineoplastic chemotherapy; Z79.52 Long term (current) use of systemic steroids; Z79.899 Other long term (current) drug therapy
CPT/HCPCS: 80053; 84443; 85025; 96413; 99214; A4222; J7050; J9173

== ENCOUNTER 2025-07-01 09:24 | Oncology outpatient (recurring) (ONCR) | payer MEDICARE, SELFPAY ==
[2025-07-01 10:23] LABS: Hematocrit 48.1 % (36-47); Hemoglobin 16.80 g/dL (11.27-16.99); Mean Corpuscular HGB Conc 34.9 g/dL (30-55); Mean Corpuscular Hemoglobin 34.2 pg (27-33); Mean Corpuscular Volume 98.0 fl (85-98); Nucleated Red Blood Cells % 0 %; Platelet Count 178 10^3/cmm (157-399); Red Blood Count 4.91 10^6/uL (3.85-5.65); White Blood Count 10.43 10^3/uL (3.29-11.43)
[2025-07-01 12:38] LABS: Alanine Aminotransferase 14 U/L (0-33); Albumin Level 4.3 g/dL (3.5-5.2); Alkaline Phosphatase 77 U/L (35-105); Anion Gap 15.1 (5-19); Aspartate Amino Transferase 20 U/L (0-32); Blood Urea Nitrogen 16 mg/dL (8-23); Calcium 9.6 mg/dL (8.5-10.5); Carbon Dioxide 26 mmol/L (22-29); Chloride 104 mmol/L (98-107); Creatinine Clr Calc Pharmacy 45.3829; Globulin 2.6 g/dL (1.3-4.6); Glucose 156 mg/dL (65-115); Osmolality Calculated 296 mOsm/kg (285-295); Potassium 4.1 mmol/L (3.5-5.1); Sodium 141 mmol/L (136-145); Thyroid Stimulating Hormone 1.84 uIU/mL (0.27-4.20); Total Protein 6.9 g/dL (6.6-8.7)
[2025-07-01] MEDS: durvalumab 1,500 MG in sodium chloride 0.9% 250 ML 280 MG IV (13:10)
[2025-07-01 14:30] VITALS: BP 99/56; PULSE 69; TEMP 36.4
== END 2025-07-01 23:59 | disposition home or self-care (01) ==
PROVIDERS: Nurse Practitioner; PCP Family Medicine; Visit Provider Nurse Practitioner Family
DX: Z51.12 Encounter for antineoplastic immunotherapy (principal); C34.12 Malignant neoplasm of upper lobe, left bronchus or lung; C79.51 Secondary malignant neoplasm of bone; R53.83 Other fatigue; F17.210 Nicotine dependence, cigarettes, uncomplicated; R03.0 Elevated blood-pressure reading, without diagnosis of hypertension; Z85.3 Personal history of malignant neoplasm of breast; Z90.12 Acquired absence of left breast and nipple; Z92.3 Personal history of irradiation; Z79.899 Other long term (current) drug therapy
CPT/HCPCS: 36415; 80053; 84443; 85025; 96413; 99213; A4222; J7050; J9173

== ENCOUNTER 2025-07-23 08:00 | Outpatient (CLI) | payer MEDICARE, SELFPAY ==
--- NOTE | 2025-07-23 08:45 | NM_ITS ---
WS: [id number] NUCLEAR MEDICINE BONE SCAN Radiopharmaceutical: 25.1 Tc-99m MDP mCi IV Injection site: Antecubital Postinjection imaging delay: 1 hr CLINICAL INFORMATION: Primary adenocarcinoma of upper lobe of left lung COMPARISON: 04/22/2025 FINDINGS: Bone lesions: Previously described metastatic lesion in the LEFT T6 transverse process and facet is stable. No evidence of new or progressive metastatic disease. Soft tissue contours: Normal. Kidneys: Normal. Other findings: RIGHT TKA. NM/NM bone scan whole body* [id number] IMPRESSION: 1. No evidence of new or progressive metastatic disease. 2. Previously described metastatic lesion in the LEFT T6 transverse process an d facet is stable.
== END 2025-07-23 08:01 | disposition home or self-care (01) ==
LOC: RAD 08:02
PROVIDERS: PCP Family Medicine; Visit Provider Internal Medicine
DX: C34.12 Malignant neoplasm of upper lobe, left bronchus or lung (principal); C79.51 Secondary malignant neoplasm of bone; C41.2 Malignant neoplasm of vertebral column
CPT/HCPCS: 78306; A9561

== ENCOUNTER 2025-07-23 10:52 | Outpatient (CLI) | payer MEDICARE, SELFPAY ==
--- NOTE | 2025-07-23 10:57 | CT_ITS ---
WS: [id number] CT CHEST, ABDOMEN AND PELVIS WITH CONTRAST HISTORY: PRIMARY ADENOCARCINOMA OF UPPER LOBE OF L LUNG TECHNIQUE: Contiguous 5 mm axial imaging performed through the chest, abdomen and pelvis with IV contrast, oral contrast has been provided. Coronal and sagittal reformats chest. Coronal and sagittal reformats through the abdomen and pelvis. All CT scans at [facility] use at least one of these dose optimization techniques: automated exposure control; mA and/or kV adjustment per patient size (includes targeted exams where dose is matched to clinical indication); or iterative reconstruction. CONTRAST: Omnipaque 350; 100 mL IV. DLP: 451.58 mGy.cm COMPARISON: 04/22/2025, 01/01/2025, bone scan 07/23/2025, PET/CT 06/16/[address]: Lungs are hyperexpanded. Spiculated nodule is reidentified in the lingula measuring 1.2 x 1.1 cm with adjacent curvilinear atelectasis. No progression since the most recent study. Reidentified is a pulmonary nodule at the LEFT lung base measuring 1.2 x 1.2 cm which has slightly increased in size since 04/22/2025. Benign granuloma RIGHT lung. Reidentified are LEFT hilar lymph nodes with the largest measuring 10 mm. These lymph nodes have slightly decreased in size. No new nodules. The subcarinal lymph node is necrotic. Margins are difficult to identify but there is no increase in size. Atherosclerosis aorta. Normal size pulmonary artery. Normal size heart. Small hiatal hernia. Mild blastic mass in the LEFT T6 transverse process is identified. No progression. No additional osseous metastatic sites are identified. Abdomen CT: Normal size liver. Stable hepatic cysts. Splenic granulomata. Negative gallbladder. No adrenal mass. Pancreatic atrophy with numerous scattered pancreatic calcifications. No common bile duct or pancreatic duct dilatation. No renal obstruction. Cortical thinning cortex lower pole LEFT kidney is chronic. There are nonobstructing calcifications LEFT renal pelvis. LEFT ureter is very slightly prominent but no stones are identified. Near similar pattern to the prior study of 04/22/2025 and 09/25/2024. Cortical cyst RIGHT kidney. No renal obstruction. No GI tract obstruction. Constipation. No colitis. Negative appendix. Moderate atherosclerotic plaque within the abdominal aorta. Plaque at the origin of the celiac axis and SMA. No occlusions. Pelvic CT: Well-distended urinary bladder. There is no free fluid or adenopathy in the pelvis. No destructive bone lesions are identified. CT/CT chest abdpel w/*[id number] IMPRESSION: 1. No significant increase in size of the spiculated nodule in the lingula steph suring 1.2 x 1.1 cm with adjacent atelectasis. 2. LEFT lower lobe pulmonary nodule measures 1.2 x 1.2 cm and has increased sl ightly in size from 0.9 x 0.9 cm. 3. No new mass or nodule. 4. LEFT hilar and subcarinal lymph nodes have decreased in size. 5. No metastatic lesions in the liver or adrenal glands. 6. No ascites. 7. No change in the osteoblastic metastatic site LEFT T6 transverse process. 8. Atherosclerotic plaque within the aorta and at the origin of the mesenteric arteries. No ischemic changes in the GI tract.
[2025-07-23] MEDS: iohexol 350 mg/mL 500 mL Btl (per mL) IV (11:13)
[2025-07-23] MEDS: iohexol 350 mg/mL 500 mL Btl (per mL) PO (11:14)
== END 2025-07-23 10:53 | disposition home or self-care (01) ==
LOC: RAD 10:53
PROVIDERS: PCP Family Medicine; Visit Provider Internal Medicine
DX: C34.12 Malignant neoplasm of upper lobe, left bronchus or lung (principal); R91.8 Other nonspecific abnormal finding of lung field; K76.89 Other specified diseases of liver; K86.89 Other specified diseases of pancreas; N28.89 Other specified disorders of kidney and ureter; I25.10 Atherosclerotic heart disease of native coronary artery without angina pectoris; K59.00 Constipation, unspecified
CPT/HCPCS: 71260; 74177

== ENCOUNTER 2025-07-29 11:16 | Oncology outpatient (recurring) (ONCR) | payer MEDICARE, SELFPAY ==
[2025-07-29 11:57] LABS: Hematocrit 47.0 % (36-47); Hemoglobin 16.40 g/dL (11.27-16.99); Mean Corpuscular HGB Conc 34.9 g/dL (30-55); Mean Corpuscular Hemoglobin 33.9 pg (27-33); Mean Corpuscular Volume 97.1 fl (85-98); Nucleated Red Blood Cells % 0 %; Platelet Count 174 10^3/cmm (157-399); Red Blood Count 4.84 10^6/uL (3.85-5.65); White Blood Count 10.14 10^3/uL (3.29-11.43)
[2025-07-29 12:22] LABS: Alanine Aminotransferase 16 U/L (0-33); Albumin Level 4.2 g/dL (3.5-5.2); Alkaline Phosphatase 76 U/L (35-105); Blood Urea Nitrogen 16 mg/dL (8-23); Calcium 9.5 mg/dL (8.5-10.5); Carbon Dioxide 23 mmol/L (22-29); Chloride 104 mmol/L (98-107); Creatinine Clr Calc Pharmacy 44.0289; Globulin 2.8 g/dL (1.3-4.6); Glucose 106 mg/dL (65-115); Osmolality Calculated 292 mOsm/kg (285-295); Sodium 140 mmol/L (136-145); Thyroid Stimulating Hormone 2.57 uIU/mL (0.27-4.20); Total Protein 7.0 g/dL (6.6-8.7)
[2025-07-29 12:50] LABS: Anion Gap 17.7 (5-19); Aspartate Amino Transferase 27 U/L (0-32); Potassium 4.7 mmol/L (3.5-5.1)
[2025-07-29] MEDS: durvalumab 1,500 MG in sodium chloride 0.9% 250 ML 280 MG IV (13:20)
== END 2025-07-29 23:59 | disposition home or self-care (01) ==
PROVIDERS: PCP Family Medicine; Visit Provider Nurse Practitioner Family
DX: Z51.12 Encounter for antineoplastic immunotherapy (principal); C34.12 Malignant neoplasm of upper lobe, left bronchus or lung; F17.200 Nicotine dependence, unspecified, uncomplicated; R03.0 Elevated blood-pressure reading, without diagnosis of hypertension; Z90.12 Acquired absence of left breast and nipple; Z85.3 Personal history of malignant neoplasm of breast; Z92.3 Personal history of irradiation; Z92.21 Personal history of antineoplastic chemotherapy; Z79.899 Other long term (current) drug therapy
CPT/HCPCS: 80053; 84443; 85025; 96413; 99214; A4222; J7050; J9173

== ENCOUNTER 2025-09-09 09:23 | Oncology outpatient (recurring) (ONCR) | payer MEDICARE, SELFPAY ==
[2025-09-09 09:48] LABS: Hematocrit 50.8 % (36-47); Hemoglobin 17.20 g/dL (11.27-16.99); Mean Corpuscular HGB Conc 33.9 g/dL (30-55); Mean Corpuscular Hemoglobin 33.4 pg (27-33); Mean Corpuscular Volume 98.6 fl (85-98); Nucleated Red Blood Cells % 0 %; Platelet Count 182 10^3/cmm (157-399); Red Blood Count 5.15 10^6/uL (3.85-5.65); White Blood Count 15.50 10^3/uL (3.29-11.43)
[2025-09-09 10:14] LABS: Alanine Aminotransferase 15 U/L (0-33); Albumin Level 4.6 g/dL (3.5-5.2); Alkaline Phosphatase 78 U/L (35-105); Anion Gap 13.9 (5-19); Aspartate Amino Transferase 20 U/L (0-32); Blood Urea Nitrogen 17 mg/dL (8-23); Calcium 9.9 mg/dL (8.5-10.5); Carbon Dioxide 29 mmol/L (22-29); Chloride 101 mmol/L (98-107); Creatinine Clr Calc Pharmacy 45.9097; Globulin 3.0 g/dL (1.3-4.6); Glucose 95 mg/dL (65-115); Osmolality Calculated 291 mOsm/kg (285-295); Potassium 3.9 mmol/L (3.5-5.1); Sodium 140 mmol/L (136-145); Thyroid Stimulating Hormone 3.50 uIU/mL (0.27-4.20); Total Protein 7.6 g/dL (6.6-8.7)
[2025-09-09] MEDS: durvalumab 1,500 MG in sodium chloride 0.9% 250 ML 280 MG IV (11:12)
[2025-09-09 12:20] VITALS: BP 124/85; PULSE 84; RESP 17; O2SAT 96
== END 2025-09-09 23:59 | disposition home or self-care (01) ==
PROVIDERS: Nurse Practitioner Family; PCP Family Medicine; Visit Provider Nurse Practitioner
DX: Z51.12 Encounter for antineoplastic immunotherapy (principal); C34.12 Malignant neoplasm of upper lobe, left bronchus or lung; Z79.899 Other long term (current) drug therapy; R03.0 Elevated blood-pressure reading, without diagnosis of hypertension; F17.200 Nicotine dependence, unspecified, uncomplicated; Z90.12 Acquired absence of left breast and nipple
CPT/HCPCS: 80053; 84443; 85025; 96413; 99214; A4222; J7050; J9173

== ENCOUNTER → 2025-09-20 13:53 | Outpatient (BNVA) | payer MEDICARE, SELFPAY | PROVIDERS: PCP Family Medicine; Visit Provider Internal Medicine | DX: I25.10 Atherosclerotic heart disease of native coronary artery without angina pectoris (principal); I10 Essential (primary) hypertension; Z72.0 Tobacco use | CPT/HCPCS: 99213 ==

== ENCOUNTER 2025-10-14 10:00 | Oncology outpatient (recurring) (ONCR) | payer MEDICARE, SELFPAY ==
[2025-10-14 10:50] LABS: Hematocrit 46.2 % (36-47); Hemoglobin 16.00 g/dL (11.27-16.99); Mean Corpuscular HGB Conc 34.6 g/dL (30-55); Mean Corpuscular Hemoglobin 34.4 pg (27-33); Mean Corpuscular Volume 99.4 fl (85-98); Nucleated Red Blood Cells % 0 %; Platelet Count 164 10^3/cmm (157-399); Red Blood Count 4.65 10^6/uL (3.85-5.65); White Blood Count 14.18 10^3/uL (3.29-11.43)
[2025-10-14 11:31] LABS: Alanine Aminotransferase 17 U/L (0-33); Albumin Level 4.3 g/dL (3.5-5.2); Alkaline Phosphatase 71 U/L (35-105); Blood Urea Nitrogen 17 mg/dL (8-23); Calcium 9.8 mg/dL (8.5-10.5); Carbon Dioxide 29 mmol/L (22-29); Chloride 102 mmol/L (98-107); Globulin 2.5 g/dL (1.3-4.6); Glucose 132 mg/dL (65-115); Osmolality Calculated 295 mOsm/kg (285-295); Sodium 141 mmol/L (136-145); Total Protein 6.8 g/dL (6.6-8.7)
[2025-10-14 11:38] LABS: Anion Gap 14.0 (5-19); Aspartate Amino Transferase 24 U/L (0-32); Potassium 4.0 mmol/L (3.5-5.1)
[2025-10-14 12:17] LABS: Thyroid Stimulating Hormone 1.94 uIU/mL (0.27-4.20)
[2025-10-14] MEDS: durvalumab 1,500 MG in sodium chloride 0.9% 250 ML 280 MG IV (12:38)
[2025-10-14 13:53] VITALS: BP 119/74; PULSE 80; RESP 18; TEMP 36.3; O2SAT 93
== END 2025-10-14 23:59 | disposition home or self-care (01) ==
PROVIDERS: PCP Family Medicine; Visit Provider Nurse Practitioner
DX: Z51.12 Encounter for antineoplastic immunotherapy (principal); C34.12 Malignant neoplasm of upper lobe, left bronchus or lung; F17.200 Nicotine dependence, unspecified, uncomplicated; R03.0 Elevated blood-pressure reading, without diagnosis of hypertension; Z90.12 Acquired absence of left breast and nipple; Z85.3 Personal history of malignant neoplasm of breast; Z92.3 Personal history of irradiation; Z92.21 Personal history of antineoplastic chemotherapy; Z79.899 Other long term (current) drug therapy
CPT/HCPCS: 80053; 84443; 85025; 96413; 99214; A4222; J7050; J9173